=== PATIENT | female | born 1945 | race African-American/Black ===

== ENCOUNTER 2017-03-24 14:07 | Inpatient (IN) | payer MEDICARE ==
[~2017-03-24] VITALS: Ht 156.2 cm; Wt 56.3 kg
[~2017-03-24 14:07] MED LIST: ACET325T9 PO; AMLO10TA2 PO; ASPI-612 PO; ATOR40TA59 PO; BRIM5DRO EACHEYE; BRIM5DRO3 EACHEYE; CHOL500050 PO; CLON0.1T PO; CLOP75TA PO; DORZ10DR3 EACHEYE; FLUT9.9S NS; GLIP10TA13 PO; IPRA3AMP NEB; LATA2.5D3 EACHEYE; LEVO750T5 PO; LISI2.5T PO; LOSA100T6 PO; MEMA10TA PO; METO25TA4 PO; METO50TA2 PO; PRED-220 PO; SPIR25TA3 PO; VENTOLIN HFA18 GM INH
--- NOTE | 2017-03-24 16:26 | PDOC ---
PROGRESS NOTES Subjective Subjective The patient has just arrived in transfer from [place]. She reports feeling well. She denies chest pain. She reports mild shortness of breath. Objective Objective 1. Patient is status post a recent intervention with a drug-eluting stent placed to the right coronary artery and a drug eluded stent placed to the LAD on March 07. Echocardiogram shows normal LV function. She had episodes of shortness of breath and some mild chest pain. Initial troponin was normal. EKG however shows new T-wave inversion in the anterior leads. The patient was started on heparin and has been transferred to [place] for further evaluation and tentatively scheduled for cardiac catheterization tomorrow at 11 AM. This was discussed with the patient. She has agreed to this plan. 2. Hypertension. We'll continue present medications. 3. Hyperlipidemia. We'll check lab and continue medications. 4. Chronic kidney disease. Stage III. We'll treat with fluids prior to catheter. We'll recheck lab in the morning. 5. COPD. Continue baseline medications. Physical Exam Abdomen: Normal bowel sounds Heart: Regular rate General: No acute distress Lungs: Clear to auscultation Assessment Assessment Plan and assessment as outlined above. Comment Review of Relevant I have reviewed the following items glo (where applicable) has been applied. Medications Active Scripts Active Ventolin Hfa Inhaler (Albuterol Sulfate) 18 Gm Hfa.aer.ad 2 Puff INH Q4HRS Reported Metoprolol Tartrate 50 Mg Tablet 1 Tab PO DAILYWBKFT Metoprolol Tartrate 25 Mg Tablet 1 Tab PO HS Lisinopril 2.5 Mg Tablet 1 Tab PO DAILY Clopidogrel (Clopidogrel Bisulfate) 75 Mg Tablet 1 Tab PO DAILY Atorvastatin Calcium 40 Mg Tablet 1 Tab PO DAILY Aspirin Ec (Aspirin) 81 Mg Tablet.dr 1 Tab PO DAILY Tylenol (Acetaminophen) 325 Mg Tablet 2 Tab PO PRN Q6HRS PRN Flonase Allergy Relief (Fluticasone Propionate) 9.9 Ml [place].susp 1 Sprays NS DAILY Glipizide 10 Mg Tablet 1 Tab PO BID Amlodipine Besylate 10 Mg Tablet 10 Mg PO DAILY Dorzolamide Hcl 10 Ml Drops 1 Drop EACHEYE BID Latanoprost 2.5 Ml Drops 1 Drop EACHEYE QHS CHRISTINA GOMEZ MD Mar 24, 2017 16:26
[2017-03-24] MEDS ORDERED: HEPARIN 25,000UTS/500ML PREMIX 500 ML IV PRN (16:30)
[2017-03-24] MEDS ORDERED: ASPIRIN CHEWABLE 81 MG TABLET. PO ONE (16:30)
[2017-03-24] MEDS ORDERED: IV 1/2 NORMAL SALINE 1,000 ML IV SCH (17:00)
[2017-03-24 19:05] VITALS: BP 148/59
[2017-03-24] MEDS: CLOPIDOGREL BISULFATE 75 MG TABLET PO SCH (19:52)
[2017-03-24] MEDS: NITROGLYCERIN OINT 1 GM PACKET. TP SCH ×2 (19:53→23:53)
[2017-03-24] MEDS: IV NORMAL SALINE 1000ML BAG 1,000 ML IV SCH (19:53)
[2017-03-24] MEDS: ACETYLCYSTEINE 20% ORAL SOLN 600 MG/3 ML SYRINGE. PO SCH (21:19)
[2017-03-24 22:45] VITALS: BP 143/81
[2017-03-25] VITALS (9 sets, daily range): BP systolic 114–169; BP diastolic 61–79
[2017-03-25 04:34] LABS: BASO # 0.2 x10^3/uL (0.0-0.2); BASO % 2 % (0-3); EOS % 16 % (0-3); HEMATOCRIT 30.8 % (36.0-47.0); HEMOGLOBIN 10.3 g/dL (12.0-15.5); LYMPH # 3.9 x10^3/uL (1.0-4.8); LYMPH % 40 % (24-48); MEAN CORPUSCULAR HEMOGLOBIN 26 pg (25-35); MEAN CORPUSCULAR HGB CONC 33 g/dL (31-37); MEAN CORPUSCULAR VOLUME 77 fL (79-100); MONO % 9 % (0-9); NEUT % 33 % (31-73); PLATELET COUNT 402 x10^3/uL (140-400); RED BLOOD COUNT 4.01 x10^6/uL (3.50-5.40); RED CELL DISTRIBUTION WIDTH 15.9 % (11.5-14.5); WHITE BLOOD COUNT 9.7 x10^3/uL (4.0-11.0)
[2017-03-25 04:46] LABS: CALCIUM 9.2 mg/dL (8.5-10.1); CREATININE 1.4 mg/dL (0.6-1.0); GFR 44.5; POTASSIUM 3.3 mmol/L (3.5-5.1)
[2017-03-25 04:48] LABS: CHOLESTEROL/HDL RATIO 2.6
[2017-03-25] MEDS: ACETYLCYSTEINE 20% ORAL SOLN 600 MG/3 ML SYRINGE. PO SCH (06:38)
[2017-03-25] MEDS: NITROGLYCERIN OINT 1 GM PACKET. TP SCH ×4 (06:38→21:29)
[2017-03-25] MEDS ORDERED: CHOL500050 PO (08:16)
[2017-03-25] MEDS ORDERED: CETI10TA16 PO (08:16)
[2017-03-25] MEDS ORDERED: NITR0.4T22 SL (08:16)
[2017-03-25] MEDS ORDERED: FLU VACC QS2017-18 (36MOS+)/PF 0.5 ML SYRINGE. VAX IM ONE (09:00)
[2017-03-25] MEDS: IV NORMAL SALINE 1000ML BAG 1,000 ML IV SCH (09:07)
[2017-03-25] MEDS: CLOPIDOGREL BISULFATE 75 MG TABLET PO SCH (09:25)
[2017-03-25] MEDS ORDERED: ACETAMINOPHEN 325 MG TABLET. PO PRN (09:45)
[2017-03-25] MEDS ORDERED: NITROGLYCERIN SUBLINGUAL 0.4 MG BOTTLE OF 25. SL PRN (09:45)
[2017-03-25] MEDS ORDERED: CETIRIZINE HCL 10 MG TABLET. PO SCH ×2 (10:00→12:15)
[2017-03-25] MEDS: METOPROLOL TART IMMED RELEASE 50 MG TABLET. PO SCH (10:00)
[2017-03-25] MEDS: glipiZIDE 5 MG TABLET PO SCH ×2 (10:00→16:47)
[2017-03-25] MEDS: LISINOPRIL 2.5 MG TABLET PO SCH (10:00)
[2017-03-25] MEDS ORDERED: FLUTICASONE 50MCG/NASAL SPRAY 16GM BOTTLE. NS SCH (10:00)
[2017-03-25] MEDS ORDERED: INFLUENZA VAX SCREEN BY RX. MC ONE (11:00)
[2017-03-25] MEDS: ASPIRIN ENTERIC COATED 81 MG TABLET.DR. PO SCH (11:10)
[2017-03-25] MEDS: DORZOLAMIDE 2% OPHTH SOLUTION 10ML BOTTLE. OU SCH ×2 (11:11→21:00)
[2017-03-25] MEDS ORDERED: NON FORMULARY ITEM (Albuterol Sulfate (Ventolin Hfa Inhaler) 2 PUFF) INH SCH (12:00)
--- NOTE | 2017-03-25 12:32 | PDOC1 ---
History and Physical Date of Admission Date of Admission DATE: 03/25/17 TIME: 12:22 Identification/Chief Complaint Chief Complaint CP, SOA, cough Problems: Source Source: Caregiver, Chart review, Patient History of Present Illness History of Present Illness 72 y.o pleasant AA female who just had LHC mar 07 by our [facility], 2 stents placed, come sin bec of CP at rest, She also has some SOA but i cant help but notice she has some URI sxs currently, She denies CP radiation, no diaphoresis, claims compliance to meds, She sounds nasal, admits to productive cough, no efvers here or at hoem though, . Pt planned for C today She only takes pro air prn but claims was on symbicort before, NEVER smoker, no known dx COPD per her acct,. Other notes mention COPD NO CXR on admit Past Medical History Cardiovascular: CAD, HTN, Hyperlipidemia Pulmonary: Bronchitis Renal/: Chronic renal failure Past Surgical History Past Surgical History: Other (PCI), No pertinent history Family History Family History: Hypertension Social History Smoke: No ALCOHOL: none Drugs: None Current Medications Current Medications Current Medications Sodium Chloride 1,000 ml @ 75 mls/hr [id number] IV ; Start 03/24/17 at 17:00; Stop 03/24/17 at 19:17; Status DC Acetylcysteine (Mucomyst 20% Oral Solution) 600 mg Q8H PO Last administered on 03/25/17 06:38; Start 03/24/17 at 22:00; Stop 03/25/17 at 06:01; Status DC Sodium Chloride 1,000 ml @ 60 mls/hr [id number] IV Last administered on 09:07; Start 03/24/17 at 16:27 Aspirin (Children'S Aspirin) 81 mg 1X ONCE PO Last administered on 03/24/17 19:52; Start 03/24/17 at 16:30; Stop 03/24/17 at 16:37; Status DC Clopidogrel Bisulfate (Plavix) 75 mg DAILYWBKFT PO Last administered on 09:25; Start 03/24/17 at 16:30 Heparin Sodium/ Dextrose 500 ml @ 0 mls/hr CONT PRN IV SEE I/O RECORD; Start 03/24/17 at 16:30 Nitroglycerin (Nitro-Bid Oint) 1 inch Q6HRS TP Last administered on 03/25/17 06:38; Start 03/24/17 at 19:41 Info (Do NOT chart on this placeholder) 0.5 each 1X ONCE MC ; Start 03/25/17 at 11:00; Stop 03/25/17 at 11:01; Status UNV Influenza Virus Vaccine Quadrival (Fluarix Quad [id number] Syringe) 0.5 ml ONCE ONCE VAX IM ; Start 03/25/17 at 09:00; Stop 03/25/17 at 09:01; Status DC Acetaminophen (Tylenol) 650 mg PRN Q6HRS PRN PO PAIN; Start 03/25/17 at 09:45 Aspirin (Ecotrin) 81 mg DAILY PO Last administered on 03/25/17 11:10; Start 03/25/17 at 10:00 Atorvastatin Calcium (Lipitor) 40 mg QHS PO ; Start 03/25/17 at 21:00 Cetirizine HCl (ZyrTEC) 10 mg DAILY PO ; Start 03/25/17 at 10:00 Dorzolamide HCl (Trusopt) 1 drop BID OU Last administered on 03/25/17 11:11; Start 03/25/17 at 10:00 Latanoprost (Xalatan) 1 drop QHS OU ; Start 03/25/17 at 21:00 Lisinopril (Prinivil) 2.5 mg DAILY PO ; Start 03/25/17 at 10:00 Metoprolol Tartrate (Lopressor) 25 mg HS PO ; Start 03/25/17 at 21:00 Metoprolol Tartrate (Lopressor) 50 mg DAILYWBKFT PO ; Start 03/25/17 at 10:00 Nitroglycerin (Nitrostat) 0.4 mg PRN Q5MIN PRN SL CHEST PAIN; Start 03/25/17 at 09:45 Non-Formulary Medication 2 puff Q4HRS INH ; Start 03/25/17 at 12:00; Stop at 12:00; Status DC Ergocalciferol (Vitamin D2) 50,000 unit Th PO ; Start 04/03/17 at 09:00 Fluticasone Propionate (Flonase) 1 spray DAILY NS ; Start 03/25/17 at 10:00; Stop 03/25/17 at 10:41; Status DC Glipizide (Glucotrol) 5 mg BIDBFRMEAL PO ; Start 03/25/17 at 10:00 Albuterol Sulfate (Ventolin Neb Soln) 2.5 mg Q4HRS NEB ; Start 03/25/17 at 10:00 Fluticasone Propionate (Flonase) 1 spray DAILY NS ; Start 03/26/17 at 09:00 Active Scripts Active Ventolin Hfa Inhaler (Albuterol Sulfate) 18 Gm Hfa.aer.ad 2 Puff INH Q4HRS Reported Vitamin D (Cholecalciferol (Vitamin D3)) 50,000 Unit Capsule 50,000 Unit PO WEEKLY Cetirizine Hcl 10 Mg Tablet 1 Tab PO DAILY NITROGLYCERIN SubLingual (Nitroglycerin) 0.4 Mg Tab.subl 0.4 Mg SL PRN Q5MIN PRN Metoprolol Tartrate 50 Mg Tablet 1 Tab PO DAILYWBKFT Metoprolol Tartrate 25 Mg Tablet 1 Tab PO HS Lisinopril 2.5 Mg Tablet 1 Tab PO DAILY Clopidogrel (Clopidogrel Bisulfate) 75 Mg Tablet 1 Tab PO DAILY Atorvastatin Calcium 40 Mg Tablet 1 Tab PO DAILY Aspirin Ec (Aspirin) 81 Mg Tablet.dr 1 Tab PO DAILY Tylenol (Acetaminophen) 325 Mg Tablet 2 Tab PO PRN Q6HRS PRN Flonase Allergy Relief (Fluticasone Propionate) 9.9 Ml [place].susp 1 Sprays NS DAILY Glipizide 10 Mg Tablet 0.05 Tab PO BID Amlodipine Besylate 10 Mg Tablet 5 Mg PO DAILY Dorzolamide Hcl 10 Ml Drops 1 Drop EACHEYE BID Latanoprost 2.5 Ml Drops 1 Drop EACHEYE QHS Allergies Allergies: Coded Allergies: Penicillins (Verified Allergy, Intermediate, 12/11/16) Sulfa (Sulfonamide Antibiotics) (Verified Allergy, Intermediate, 03/24/17) tramadol (Verified Allergy, Intermediate, 12/11/16) ROS HEENT: YES: Nasal congestion, Nasal discharge Respiratory: YES: Cough, Shortness of breath Cardiovascular: yes Chest Pain Physical Exam General: Alert, Oriented X3, Cooperative, No acute distress HEENT: Atraumatic, PERRLA Lungs: Normal air movement, Other (wheezy, coughson deep inspiration and exhalation) Abdomen: Normal bowel sounds, Soft, No tenderness, No hepatosplenomegaly, No masses Male Genitals Exam: normal genitalia, normal prostate Rectal Exam: not examined PELVIC: Nml ext genitalia Extremities: No clubbing, No cyanosis, No edema, Normal pulses, No tenderness/ swelling Skin: No rashes, No breakdown, No significant lesion Neuro: Normal gait, Normal speech, Strength at 5/5 X4 ext, Normal tone, Sensation intact, Cranial nerves 3-12 NL, Reflexes 2+ Psych/Mental Status: Mental status NL, Mood NL Vitals Vitals Vital Signs Date Time Temp Pulse Resp B/P (MAP) Pulse Ox O2 Delivery O2 Flow Rate FiO2 03/25/17 10:00 60 114/75 03/25/17 08:25 Nasal Cannula 2.0 03/25/17 07:00 98.2 21 97 98.2 Labs Labs Laboratory Tests Test 03/24/17 20:10 03/25/17 03:43 Heparin Anti-Xa Act, Unfractionated 0.40 IU/mL (0.30-0.70) 0.42 IU/mL (0.30-0.70) White Blood Count 9.7 x10^3/uL (4.0-11.0) Red Blood Count 4.01 x10^6/uL (3.50-5.40) Hemoglobin 10.3 g/dL (12.0-15.5) Hematocrit 30.8 % (36.0-47.0) Mean Corpuscular Volume 77 fL (79-100) Mean Corpuscular Hemoglobin 26 pg (25-35) Mean Corpuscular Hemoglobin Concent 33 g/dL (31-37) Red Cell Distribution Width 15.9 % (11.5-14.5) Platelet Count 402 x10^3/uL (140-400) Neutrophils (%) (Auto) 33 % (31-73) Lymphocytes (%) (Auto) 40 % (24-48) Monocytes (%) (Auto) 9 % (0-9) Eosinophils (%) (Auto) 16 % (0-3) Basophils (%) (Auto) 2 % (0-3) Neutrophils # (Auto) 3.2 x10^3uL (1.8-7.7) Lymphocytes # (Auto) 3.9 x10^3/uL (1.0-4.8) Monocytes # (Auto) 0.9 x10^3/uL (0.0-1.1) Eosinophils # (Auto) 1.5 x10^3/uL (0.0-0.7) Basophils # (Auto) 0.2 x10^3/uL (0.0-0.2) Sodium Level 144 mmol/L (136-145) Potassium Level 3.3 mmol/L (3.5-5.1) Chloride Level 106 mmol/L (98-107) Carbon Dioxide Level 28 mmol/L (21-32) Anion Gap 10 (6-14) Blood Urea Nitrogen 19 mg/dL (7-20) Creatinine 1.4 mg/dL (0.6-1.0) Estimated GFR (Cockcroft-Gault) 44.5 Glucose Level 99 mg/dL (70-99) Calcium Level 9.2 mg/dL (8.5-10.1) Troponin I Quantitative < 0.017 ng/mL (0.000-0.055) Triglycerides Level 91 mg/dL (0-150) Cholesterol Level 169 mg/dL (0-200) LDL Cholesterol, Calculated 86 mg/dL (0-100) VLDL Cholesterol, Calculated 18 mg/dL (0-40) Non-HDL Cholesterol Calculated 104 mg/dL (0-129) HDL Cholesterol 65 mg/dL (40-60) Cholesterol/HDL Ratio 2.6 Laboratory Tests Test 03/24/17 20:10 03/25/17 03:43 Heparin Anti-Xa Act, Unfractionated 0.40 IU/mL (0.30-0.70) 0.42 IU/mL (0.30-0.70) White Blood Count 9.7 x10^3/uL (4.0-11.0) Red Blood Count 4.01 x10^6/uL (3.50-5.40) Hemoglobin 10.3 g/dL (12.0-15.5) Hematocrit 30.8 % (36.0-47.0) Mean Corpuscular Volume 77 fL (79-100) Mean Corpuscular Hemoglobin 26 pg (25-35) Mean Corpuscular Hemoglobin Concent 33 g/dL (31-37) Red Cell Distribution Width 15.9 % (11.5-14.5) Platelet Count 402 x10^3/uL (140-400) Neutrophils (%) (Auto) 33 % (31-73) Lymphocytes (%) (Auto) 40 % (24-48) Monocytes (%) (Auto) 9 % (0-9) Eosinophils (%) (Auto) 16 % (0-3) Basophils (%) (Auto) 2 % (0-3) Neutrophils # (Auto) 3.2 x10^3uL (1.8-7.7) Lymphocytes # (Auto) 3.9 x10^3/uL (1.0-4.8) Monocytes # (Auto) 0.9 x10^3/uL (0.0-1.1) Eosinophils # (Auto) 1.5 x10^3/uL (0.0-0.7) Basophils # (Auto) 0.2 x10^3/uL (0.0-0.2) Sodium Level 144 mmol/L (136-145) Potassium Level 3.3 mmol/L (3.5-5.1) Chloride Level 106 mmol/L (98-107) Carbon Dioxide Level 28 mmol/L (21-32) Anion Gap 10 (6-14) Blood Urea Nitrogen 19 mg/dL (7-20) Creatinine 1.4 mg/dL (0.6-1.0) Estimated GFR (Cockcroft-Gault) 44.5 Glucose Level 99 mg/dL (70-99) Calcium Level 9.2 mg/dL (8.5-10.1) Troponin I Quantitative < 0.017 ng/mL (0.000-0.055) Triglycerides Level 91 mg/dL (0-150) Cholesterol Level 169 mg/dL (0-200) LDL Cholesterol, Calculated 86 mg/dL (0-100) VLDL Cholesterol, Calculated 18 mg/dL (0-40) Non-HDL Cholesterol Calculated 104 mg/dL (0-129) HDL Cholesterol 65 mg/dL (40-60) Cholesterol/HDL Ratio 2.6 VTE Prophylaxis Ordered VTE Prophylaxis Devices: Yes VTE Pharmacological Prophylaxi: Yes Assessment/Plan Assessment/Plan 1. Chest pain, ACS recent PCI with 2 stents 2. HTN, controlled 3. CKD stage 3 4. DM 2 5. Dyslipidemia 7. ACUTE BRONCHITIS PLAN: Admit 2 MN COnt IVF post cath given CKD, s.p mucomyst Recheck BMP wilberto LHC later per cards STart PO abx - Check CXR and flu test today NO FLU shot this admit pls NEbs, cough med MAy consult pulmo, denies known COPD - but other notes mention Dw RN jose manuel and whoel family at bedside Cont home meds, SSI I did hold off her home ASA and plavix as is on heparin gtt currently per cards SUKHDEV LARA MD Mar 25, 2017 12:32
[2017-03-25] MEDS: ALBUTEROL SULFATE 2.5 MG/3 ML NEBU. NEB SCH ×3 (12:35→20:15)
[2017-03-25] MEDS ORDERED: AZITHROMYCIN 500 MG in IV NORMAL SALINE 250ML 250 ML IV ONE (12:45)
[2017-03-25] MEDS ORDERED: LIDOCAINE 2% 20 ML VIAL. ONE (14:28)
[2017-03-25] MEDS ORDERED: IODIXANOL 320 MG/ML 100 ML VIAL. ONE (14:28)
[2017-03-25] MEDS ORDERED: fentaNYL PF VIAL 100 MCG/2 ML VIAL ONE (15:02)
[2017-03-25] MEDS ORDERED: MIDAZOLAM HCL/PF 2 MG/2 ML VIAL. ONE (15:02)
[2017-03-25] MEDS ORDERED: NITROGLYCERIN 200 MCG/2 ML SYRINGE FOR CATH/VASC LAB. ONE (15:02)
[2017-03-25] MEDS ORDERED: HEPARIN for IV BOLUS 10,000 UNIT/10 ML VIAL. ONE (15:02)
[2017-03-25] MEDS ORDERED: VERAPAMIL 5 MG/2 ML VIAL. ONE (15:02)
--- NOTE | 2017-03-25 15:28 | RAD ---
Chest, 2 views, 03/25/2017: History: Chronic cough Comparison is made to a study from 12/09/2016. The heart size and pulmonary vascularity are normal. Coronary artery stents are projected over the left side of the heart. There is mild tortuosity of the thoracic aorta. No acute infiltrate are seen. There is no evidence of pleural fluid. IMPRESSION: No acute cardiopulmonary abnormality is detected.
[2017-03-25] MEDS ORDERED: VERAPAMIL 5 MG/2 ML VIAL. IART ONE (15:45)
[2017-03-25] MEDS ORDERED: NITROGLYCERIN 200 MCG/2 ML SYRINGE FOR CATH/VASC LAB. IART ONE (15:45)
[2017-03-25] MEDS ORDERED: fentaNYL PF VIAL 100 MCG/2 ML VIAL IV ONE (15:45)
[2017-03-25] MEDS ORDERED: IODIXANOL 320 MG/ML 100 ML VIAL. IART ONE (15:45)
[2017-03-25] MEDS ORDERED: LIDOCAINE 2% 20 ML VIAL. IJ ONE (15:45)
[2017-03-25] MEDS ORDERED: HEPARIN for IV BOLUS 10,000 UNIT/10 ML VIAL. IART ONE (15:45)
[2017-03-25] MEDS ORDERED: MIDAZOLAM HCL/PF 2 MG/2 ML VIAL. IV ONE (15:45)
--- NOTE | 2017-03-25 15:53 | PDOC ---
MODERATE SEDATION ASSESSMENT RISKS/ALTERNATIVES Risks/Alternatives Risks and alternatives of this type of sedation and procedure discussed with: RISK/ALTERNATIVES: Patient H & P ON CHART H & P H & P on chart and reviewed for co-morbid conditions and appropriate labs. H&P ON CHART: Yes STATUS PREG STATUS ASSESSED: N/A MEDS/ALLERGIES REVIEWED Meds/Allergies Reviewed Medications and Allergies including time and route of recently administered narcotics and sedatives. MEDS/ALLERGIES REVIEWED: Yes ASA RATING ASA RATING: II AIRWAY ASSESSMENT Airway Assessment Airway patency, oral function limitations, presence of caps, crowns, dentures, partials, and ability to extend neck assessed. AIRWAY ASSESSMENT: Yes MALLAMPATI SCORE MALLAMPATI SCORE: II PRE-SEDATION ASSESSMENT PRE-SEDATION ASSESSMENT: Yes MILADIS BAUGH MD Mar 25, 2017 15:53
[2017-03-25] MEDS: IV 1/2 NORMAL SALINE 1,000 ML IV SCH (15:54)
--- NOTE | 2017-03-25 16:05 | CARD ---
APPROVED REPORT Procedure(s) performed: Left heart catheterization, selective coronary angiography and left ventricul ography via right transradial approach Moderate sedation: 20 minutes INDICATION The indication(s) include : unstable angina . PROCEDURE NARRATIVE After explaining the risks, benefits and alternative options, informed consent was obtained from lona ent. Patient was brought to the cardiac Dental Nurse and right wrist was prepped and draped in the usual fashion after confirming a positive modified Lucas's test. Arterial access was obtained in the [facility] radial artery and a 6 Afghan sheath was inserted. 6 Afghan JL 3.5 and 6 Afghan JR4 catheters were used to perform selective angiography of left and right coronary arteries after initial attempts to e ngage these vessels using 6 Afghan Bony catheter were unsuccessful. 6 Afghan pigtail catheter was used to perform left ventriculography. Patient tolerated the procedure well. Hemostasis was achieve d using TR band. There were no immediate complications. The following findings were noted. FINDINGS 1. Hemodynamics: Left ventricular end-diastolic pressure of 18 mmHg. No pullback gradient across th e aortic valve. 2. Left ventriculography: Normal left ventricle systolic function with ejection fraction estimated at 75-80%. No significant mitral regurgitation seen. 3. Coronary angiography: a. The left main coronary artery arose from the left sinus of Valsalva, gave rise to the left anteri or descending and left circumflex arteries and did not show any significant stenosis. b. The left anterior descending artery showed widely patent previously placed stents in the mid and mid to distal segments. c. The left circumflex artery did not show any significant stenosis. d. The right coronary artery was a large and dominant vessel arising from the right sinus of Valsalv a that showed 30% stenosis in the proximal segment, widely patent previously placed stent in the mids egment and 50% stenosis involving the proximal segment of posterolateral branch. Conclusion 1. Nonobstructive coronary artery disease with widely patent recently placed stents in the left ante rior descending and right coronary arteries. 2. Normal left ventricle systolic function with ejection fraction estimated at 75-80% Recommendations Medical Therapy
[2017-03-25] MEDS: DOXYCYCLINE HYCLATE 100 MG TABLET PO SCH ×2 (16:47→21:29)
[2017-03-25] MEDS: methylPREDNISolone SOD SUCC PF 40 MG/ML VIAL. IV SCH ×2 (16:47→21:20)
[2017-03-25] MEDS: predniSONE 10 MG TABLET PO SCH (18:38)
[2017-03-25 19:05] LABS: OBC FLU VALID
[2017-03-25] MEDS: BUDESONIDE 0.5 MG/2 ML NEBU. NEB SCH (20:15)
[2017-03-25] MEDS ORDERED: LATANOPROST 0.005% OPHTH SOLUTION 2.5ML BOTTLE. OU SCH (21:00)
[2017-03-25] MEDS ORDERED: MONTELUKAST SODIUM 10 MG TABLET. PO SCH (21:00)
[2017-03-25] MEDS ORDERED: METOPROLOL TART IMMED RELEASE 25 MG TABLET. PO SCH (21:00)
[2017-03-25] MEDS ORDERED: ATORVASTATIN CALCIUM 40 MG TABLET. PO SCH (21:00)
--- NOTE | 2017-03-25 22:25 | CONS ---
DATE OF CONSULTATION: 03/25/2017 ATTENDING PHYSICIAN: Dr. Farley. HISTORY OF PRESENT ILLNESS: The patient is a 72-year-old that has never smoked. Has underlying history of obstructive lung disease, diagnosed with asthma as an adult. She is normally on Symbicort, now uses p.r.n. albuterol. Presented with increasing wheeze, shortness of breath. She felt like it was similar to her previous myocardial infarction. She had a cardiac catheterization back in February with PCI to the LAD and RCA. Echocardiogram at that time revealed EF of 60-65%. She had a repeat cardiac catheterization today revealing nonobstructive coronary artery disease with widely patent recently placed stents in the left anterior descending and right coronary artery. She had normal left ventricular ejection fraction of 75-80%. The patient admits to having some allergies. She normally uses ndsb-[id number] Zyrtec. She is not taking Singulair. She has never had any formal allergy testing. She denies any exposures to any allergens. Her does work in the garage with wood, and at times she is exposed to wood dust. She has not noticed any increasing shortness of breath with inhalation of any toxic fumes or dust. PAST MEDICAL HISTORY: 1. Obstructive lung disease, asthma diagnosed as an adult. She has never smoked. Has been on Symbicort in the past. 2. Allergies: Seasonal and environmental. 3. Coronary artery disease, status post PCI on 03/07/2017. LAD and RCA had a stent placement. 4. Chronic bronchitis. 5. Hyperlipidemia. 6. Hypertension. 7. Chronic renal disease. PAST SURGICAL HISTORY: As above. FAMILY HISTORY: Hypertension. ALLERGIES: PENICILLIN, SULFA AND TRAMADOL. CURRENT MEDICATION: List was reviewed. Please see the MRAD. HOME MEDICATIONS: List was likewise reviewed. REVIEW OF SYSTEMS: As indicated above, otherwise 10-point system was reviewed and negative. SOCIAL HISTORY: She has never smoked. Denies any excessive alcohol intake. PHYSICAL EXAMINATION: GENERAL: The patient was in no significant respiratory distress. VITAL SIGNS: Stable. O2 saturation currently on 2 liters was 96%. HEENT: Eyes, the sclerae were nonicteric. NECK: Jugular venous distention was not elevated. No lymphadenopathy. CHEST: Full expansion. LUNGS: Expiratory wheeze with prolonged expiratory phase. CARDIOVASCULAR: Regular rate and rhythm with S1, S2, no S3. ABDOMEN: Soft, nontender, nondistended. EXTREMITIES: No clubbing, cyanosis or edema. NEUROLOGIC: The patient was awake, alert, following commands. A detailed neuro exam was not performed. LABORATORY DATA: Reviewed. White count was normal. Differential showed 16% eosinophilia. Electrolytes were normal, except for potassium being low. Creatinine was elevated. IMAGING DATA: Chest x-ray reviewed, no acute cardiopulmonary process. IMPRESSION: 1. Progressive dyspnea, secondary to acute exacerbation of asthma. 2. Asthma exacerbation secondary to allergies. 3. Seasonal and environmental allergies. 4. Peripheral eosinophilia, compatible with allergies. 5. Coronary artery disease, status post previous PCI back in 02/2015 to LAD and RCA. Current cardiac catheterization revealed nonobstructive coronary artery disease with widely patent stents. PLAN: 1. Initiate nebulized steroids. 2. Add Singulair. 3. Outpatient workup for allergies. 4. Repeat CBC with differential as an outpatient. If the eosinophilia persists, she may require further investigation. I do appreciate the privilege in sharing Ms. Yates's care. ARTURO DANIEL MD DR: KYLEE/ariel JOB#: [id number] / [id number] FABIENNE Nunez MD
[2017-03-26] MEDS: IV NORMAL SALINE 1000ML BAG 1,000 ML IV SCH (01:47)
[2017-03-26 02:40] VITALS: BP 149/66
[2017-03-26] MEDS: ALBUTEROL SULFATE 2.5 MG/3 ML NEBU. NEB SCH ×5 (03:07→16:06)
[2017-03-26] MEDS: NITROGLYCERIN OINT 1 GM PACKET. TP SCH ×2 (06:23→12:00)
[2017-03-26] MEDS: methylPREDNISolone SOD SUCC PF 40 MG/ML VIAL. IV SCH ×2 (06:23→15:22)
[2017-03-26 07:19] VITALS: BP 142/65
[2017-03-26 07:22] LABS: CALCIUM 9.4 mg/dL (8.5-10.1); CREATININE 1.4 mg/dL (0.6-1.0); GFR 44.5; POTASSIUM 3.5 mmol/L (3.5-5.1)
[2017-03-26] MEDS: BUDESONIDE 0.5 MG/2 ML NEBU. NEB SCH (07:30)
[2017-03-26] MEDS: IV 1/2 NORMAL SALINE 1,000 ML IV SCH (08:34)
[2017-03-26] MEDS: CLOPIDOGREL BISULFATE 75 MG TABLET PO SCH (08:52)
[2017-03-26] MEDS: ASPIRIN ENTERIC COATED 81 MG TABLET.DR. PO SCH (08:52)
[2017-03-26] MEDS: DOXYCYCLINE HYCLATE 100 MG TABLET PO SCH (08:53)
[2017-03-26] MEDS: glipiZIDE 5 MG TABLET PO SCH (08:53)
[2017-03-26] MEDS: METOPROLOL TART IMMED RELEASE 50 MG TABLET. PO SCH (08:53)
[2017-03-26] MEDS: LISINOPRIL 2.5 MG TABLET PO SCH (08:53)
[2017-03-26] MEDS: predniSONE 10 MG TABLET PO SCH (08:54)
[2017-03-26] MEDS ORDERED: FLUTICASONE 50MCG/NASAL SPRAY 16GM BOTTLE. NS SCH (09:00)
[2017-03-26] MEDS: DORZOLAMIDE 2% OPHTH SOLUTION 10ML BOTTLE. OU SCH (09:01)
--- NOTE | 2017-03-26 10:11 | PDOC ---
PULMONARY PROGRESS NOTES Subjective CP almost resolved s/p cath, patent stents Vitals Vital Signs Date Time Temp Pulse Resp B/P (MAP) Pulse Ox O2 Delivery O2 Flow Rate FiO2 03/26/17 08:53 74 142/65 03/26/17 07:31 95 Room Air 03/26/17 07:19 97.8 16 97.8 03/25/17 20:00 2.0 General: Alert, No acute distress HEENT: Other Lungs: Clear, Other Cardiovascular: S1 Abdomen: Soft Neuro Exam: Alert Extremities: No Edema Labs Laboratory Tests Test 03/24/17 20:10 03/25/17 03:43 03/25/17 18:07 03/26/17 06:40 Heparin Anti-Xa Act, Unfractionated 0.40 IU/mL (0.30-0.70) 0.42 IU/mL (0.30-0.70) White Blood Count 9.7 x10^3/uL (4.0-11.0) Red Blood Count 4.01 x10^6/uL (3.50-5.40) Hemoglobin 10.3 g/dL (12.0-15.5) Hematocrit 30.8 % (36.0-47.0) Mean Corpuscular Volume 77 fL (79-100) Mean Corpuscular Hemoglobin 26 pg (25-35) Mean Corpuscular Hemoglobin Concent 33 g/dL (31-37) Red Cell Distribution Width 15.9 % (11.5-14.5) Platelet Count 402 x10^3/uL (140-400) Neutrophils (%) (Auto) 33 % (31-73) Lymphocytes (%) (Auto) 40 % (24-48) Monocytes (%) (Auto) 9 % (0-9) Eosinophils (%) (Auto) 16 % (0-3) Basophils (%) (Auto) 2 % (0-3) Neutrophils # (Auto) 3.2 x10^3uL (1.8-7.7) Lymphocytes # (Auto) 3.9 x10^3/uL (1.0-4.8) Monocytes # (Auto) 0.9 x10^3/uL (0.0-1.1) Eosinophils # (Auto) 1.5 x10^3/uL (0.0-0.7) Basophils # (Auto) 0.2 x10^3/uL (0.0-0.2) Sodium Level 144 mmol/L (136-145) 140 mmol/L (136-145) Potassium Level 3.3 mmol/L (3.5-5.1) 3.5 mmol/L (3.5-5.1) Chloride Level 106 mmol/L (98-107) 104 mmol/L (98-107) Carbon Dioxide Level 28 mmol/L (21-32) 22 mmol/L (21-32) Anion Gap 10 (6-14) 14 (6-14) Blood Urea Nitrogen 19 mg/dL (7-20) 18 mg/dL (7-20) Creatinine 1.4 mg/dL (0.6-1.0) 1.4 mg/dL (0.6-1.0) Estimated GFR (Cockcroft-Gault) 44.5 44.5 Glucose Level 99 mg/dL (70-99) 221 mg/dL (70-99) Calcium Level 9.2 mg/dL (8.5-10.1) 9.4 mg/dL (8.5-10.1) Troponin I Quantitative < 0.017 ng/mL (0.000-0.055) Triglycerides Level 91 mg/dL (0-150) Cholesterol Level 169 mg/dL (0-200) LDL Cholesterol, Calculated 86 mg/dL (0-100) VLDL Cholesterol, Calculated 18 mg/dL (0-40) Non-HDL Cholesterol Calculated 104 mg/dL (0-129) HDL Cholesterol 65 mg/dL (40-60) Cholesterol/HDL Ratio 2.6 Influenza Type A Antigen Negative (NEGATIVE) Influenza Type B Antigen Negative (NEGATIVE) Laboratory Tests Test 03/25/17 18:07 03/26/17 06:40 Influenza Type A Antigen Negative (NEGATIVE) Influenza Type B Antigen Negative (NEGATIVE) Sodium Level 140 mmol/L (136-145) Potassium Level 3.5 mmol/L (3.5-5.1) Chloride Level 104 mmol/L (98-107) Carbon Dioxide Level 22 mmol/L (21-32) Anion Gap 14 (6-14) Blood Urea Nitrogen 18 mg/dL (7-20) Creatinine 1.4 mg/dL (0.6-1.0) Estimated GFR (Cockcroft-Gault) 44.5 Glucose Level 221 mg/dL (70-99) Calcium Level 9.4 mg/dL (8.5-10.1) Medications Active Scripts Medications Dose Route/Sig Max Daily Dose Days Date Category Vitamin D (Cholecalciferol (Vitamin D3)) 50,000 Unit Capsule 50,000 Unit PO WEEKLY 03/25/17 Reported Cetirizine Hcl 10 Mg Tablet 1 Tab PO DAILY 03/25/17 Reported NITROGLYCERIN SubLingual (Nitroglycerin) 0.4 Mg Tab.subl 0.4 Mg SL PRN Q5MIN PRN 03/25/17 Reported Metoprolol Tartrate 50 Mg Tablet 1 Tab PO DAILYWBKFT 03/08/17 Reported Metoprolol Tartrate 25 Mg Tablet 1 Tab PO HS 03/08/17 Reported Lisinopril 2.5 Mg Tablet 1 Tab PO DAILY 03/08/17 Reported Clopidogrel (Clopidogrel Bisulfate) 75 Mg Tablet 1 Tab PO DAILY 03/08/17 Reported Atorvastatin Calcium 40 Mg Tablet 1 Tab PO DAILY 03/08/17 Reported Aspirin Ec (Aspirin) 81 Mg Tablet.dr 1 Tab PO DAILY 03/08/17 Reported Tylenol (Acetaminophen) 325 Mg Tablet 2 Tab PO PRN Q6HRS PRN 03/08/17 Reported Ventolin Hfa Inhaler (Albuterol Sulfate) 18 Gm Hfa.aer.ad 2 Puff INH Q4HRS 12/12/16 Rx Flonase Allergy Relief (Fluticasone Propionate) 9.9 Ml [place].susp 1 Sprays NS DAILY 12/09/16 Reported Glipizide 10 Mg Tablet 0.05 Tab PO BID 12/09/16 Reported Amlodipine Besylate 10 Mg Tablet 5 Mg PO DAILY 12/09/16 Reported Dorzolamide Hcl 10 Ml Drops 1 Drop EACHEYE BID 12/09/16 Reported Latanoprost 2.5 Ml Drops 1 Drop EACHEYE QHS 12/09/16 Reported Impression . 1. Progressive dyspnea, secondary to acute exacerbation of asthma. 2. Asthma exacerbation secondary to allergies. 3. Seasonal and environmental allergies. 4. Peripheral eosinophilia, compatible with allergies. 5. Coronary artery disease, status post previous PCI back in 02/2015 to LAD and RCA. Current cardiac catheterization revealed nonobstructive coronary artery disease with widely patent stents. 6. CP, could be related to GERD. will do VQ scan Plan . 1. steroids. 2. Singulair. 3. Outpatient workup for allergies. 4. Repeat CBC with differential as an outpatient. If the eosinophilia persists, she may require further investigation. 5. VQ scan today, If negative, can go home 6. d/w cardiology MAURICIO THIBODEAUX MD Mar 26, 2017 10:11
--- NOTE | 2017-03-26 10:59 | PDOC ---
PROGRESS NOTES Chief Complaint Chief Complaint 1. Chest pain, ACS recent PCI with 2 stents 2. HTN, controlled 3. CKD stage 3 4. DM 2 5. Dyslipidemia 7. ACUTE BRONCHITIS History of Present Illness History of Present Illness WAlking wit PT As per still having left sided CP LHC yesterday showed patent stents Pulmo note reviewed - VQ today IF neg can go home later on symbicort etc PLAN: VQ Dw cards pt still having lefts ided CP On PO doxy for acute bronchitis - no fevers, no white ct Vitals Vitals Vital Signs Date Time Temp Pulse Resp B/P (MAP) Pulse Ox O2 Delivery O2 Flow Rate FiO2 03/26/17 08:53 74 142/65 03/26/17 08:00 Nasal Cannula 2.0 03/26/17 07:31 95 03/26/17 07:19 97.8 16 97.8 Physical Exam General: Alert, Oriented X3, Cooperative, No acute distress Heart: Regular rate Lungs: Clear, Other Abdomen: Normal bowel sounds, Soft, No tenderness, No hepatosplenomegaly, No masses Extremities: No clubbing, No cyanosis, No edema, Normal pulses, No tenderness/ swelling Skin: No rashes, No breakdown, No significant lesion Labs LABS Laboratory Tests Test 03/25/17 18:07 03/26/17 06:40 Influenza Type A Antigen Negative (NEGATIVE) Influenza Type B Antigen Negative (NEGATIVE) Sodium Level 140 mmol/L (136-145) Potassium Level 3.5 mmol/L (3.5-5.1) Chloride Level 104 mmol/L (98-107) Carbon Dioxide Level 22 mmol/L (21-32) Anion Gap 14 (6-14) Blood Urea Nitrogen 18 mg/dL (7-20) Creatinine 1.4 mg/dL (0.6-1.0) Estimated GFR (Cockcroft-Gault) 44.5 Glucose Level 221 mg/dL (70-99) Calcium Level 9.4 mg/dL (8.5-10.1) Review of Systems Review of Systems left sided CP Comment Review of Relevant I have reviewed the following items glo (where applicable) has been applied. Labs Laboratory Tests Test 03/24/17 20:10 03/25/17 03:43 03/25/17 18:07 03/26/17 06:40 Heparin Anti-Xa Act, Unfractionated 0.40 IU/mL (0.30-0.70) 0.42 IU/mL (0.30-0.70) White Blood Count 9.7 x10^3/uL (4.0-11.0) Red Blood Count 4.01 x10^6/uL (3.50-5.40) Hemoglobin 10.3 g/dL (12.0-15.5) Hematocrit 30.8 % (36.0-47.0) Mean Corpuscular Volume 77 fL (79-100) Mean Corpuscular Hemoglobin 26 pg (25-35) Mean Corpuscular Hemoglobin Concent 33 g/dL (31-37) Red Cell Distribution Width 15.9 % (11.5-14.5) Platelet Count 402 x10^3/uL (140-400) Neutrophils (%) (Auto) 33 % (31-73) Lymphocytes (%) (Auto) 40 % (24-48) Monocytes (%) (Auto) 9 % (0-9) Eosinophils (%) (Auto) 16 % (0-3) Basophils (%) (Auto) 2 % (0-3) Neutrophils # (Auto) 3.2 x10^3uL (1.8-7.7) Lymphocytes # (Auto) 3.9 x10^3/uL (1.0-4.8) Monocytes # (Auto) 0.9 x10^3/uL (0.0-1.1) Eosinophils # (Auto) 1.5 x10^3/uL (0.0-0.7) Basophils # (Auto) 0.2 x10^3/uL (0.0-0.2) Sodium Level 144 mmol/L (136-145) 140 mmol/L (136-145) Potassium Level 3.3 mmol/L (3.5-5.1) 3.5 mmol/L (3.5-5.1) Chloride Level 106 mmol/L (98-107) 104 mmol/L (98-107) Carbon Dioxide Level 28 mmol/L (21-32) 22 mmol/L (21-32) Anion Gap 10 (6-14) 14 (6-14) Blood Urea Nitrogen 19 mg/dL (7-20) 18 mg/dL (7-20) Creatinine 1.4 mg/dL (0.6-1.0) 1.4 mg/dL (0.6-1.0) Estimated GFR (Cockcroft-Gault) 44.5 44.5 Glucose Level 99 mg/dL (70-99) 221 mg/dL (70-99) Calcium Level 9.2 mg/dL (8.5-10.1) 9.4 mg/dL (8.5-10.1) Troponin I Quantitative < 0.017 ng/mL (0.000-0.055) Triglycerides Level 91 mg/dL (0-150) Cholesterol Level 169 mg/dL (0-200) LDL Cholesterol, Calculated 86 mg/dL (0-100) VLDL Cholesterol, Calculated 18 mg/dL (0-40) Non-HDL Cholesterol Calculated 104 mg/dL (0-129) HDL Cholesterol 65 mg/dL (40-60) Cholesterol/HDL Ratio 2.6 Influenza Type A Antigen Negative (NEGATIVE) Influenza Type B Antigen Negative (NEGATIVE) Laboratory Tests Test 03/25/17 18:07 03/26/17 06:40 Influenza Type A Antigen Negative (NEGATIVE) Influenza Type B Antigen Negative (NEGATIVE) Sodium Level 140 mmol/L (136-145) Potassium Level 3.5 mmol/L (3.5-5.1) Chloride Level 104 mmol/L (98-107) Carbon Dioxide Level 22 mmol/L (21-32) Anion Gap 14 (6-14) Blood Urea Nitrogen 18 mg/dL (7-20) Creatinine 1.4 mg/dL (0.6-1.0) Estimated GFR (Cockcroft-Gault) 44.5 Glucose Level 221 mg/dL (70-99) Calcium Level 9.4 mg/dL (8.5-10.1) Medications Current Medications Sodium Chloride 1,000 ml @ 75 mls/hr [id number] IV ; Start 03/24/17 at 17:00; Stop 03/24/17 at 19:17; Status DC Acetylcysteine (Mucomyst 20% Oral Solution) 600 mg Q8H PO Last administered on 03/25/17 06:38; Start 03/24/17 at 22:00; Stop 03/25/17 at 06:01; Status DC Sodium Chloride 1,000 ml @ 60 mls/hr [id number] IV Last administered on 09:07; Start 03/24/17 at 16:27 Aspirin (Children'S Aspirin) 81 mg 1X ONCE PO Last administered on 03/24/17 19:52; Start 03/24/17 at 16:30; Stop 03/24/17 at 16:37; Status DC Clopidogrel Bisulfate (Plavix) 75 mg DAILYWBKFT PO Last administered on 08:52; Start 03/24/17 at 16:30 Heparin Sodium/ Dextrose 500 ml @ 0 mls/hr CONT PRN IV SEE I/O RECORD; Start 03/24/17 at 16:30; Stop 03/26/17 at 09:52; Status DC Nitroglycerin (Nitro-Bid Oint) 1 inch Q6HRS TP Last administered on 03/26/17 06:23; Start 03/24/17 at 19:41 Info (Do NOT chart on this placeholder) 0.5 each 1X ONCE MC ; Start 03/25/17 at 11:00; Stop 03/25/17 at 11:01; Status UNV Influenza Virus Vaccine Quadrival (Fluarix Quad [id number] Syringe) 0.5 ml ONCE ONCE VAX IM ; Start 03/25/17 at 09:00; Stop 03/25/17 at 09:01; Status DC Acetaminophen (Tylenol) 650 mg PRN Q6HRS PRN PO PAIN; Start 03/25/17 at 09:45 Aspirin (Ecotrin) 81 mg DAILY PO Last administered on 03/26/17 08:52; Start 03/25/17 at 10:00 Atorvastatin Calcium (Lipitor) 40 mg QHS PO Last administered on 03/25/17 21: 16; Start 03/25/17 at 21:00 Cetirizine HCl (ZyrTEC) 10 mg DAILY PO ; Start 03/25/17 at 10:00; Status Cancel Dorzolamide HCl (Trusopt) 1 drop BID OU Last administered on 03/26/17 09:01; Start 03/25/17 at 10:00 Latanoprost (Xalatan) 1 drop QHS OU Last administered on 03/25/17 21:15; Start 03/25/17 at 21:00 Lisinopril (Prinivil) 2.5 mg DAILY PO Last administered on 03/26/17 08:53; Start 03/25/17 at 10:00 Metoprolol Tartrate (Lopressor) 25 mg HS PO Last administered on 03/25/17 21: 20; Start 03/25/17 at 21:00 Metoprolol Tartrate (Lopressor) 50 mg DAILYWBKFT PO Last administered on 08:53; Start 03/25/17 at 10:00 Nitroglycerin (Nitrostat) 0.4 mg PRN Q5MIN PRN SL CHEST PAIN; Start 03/25/17 at 09:45 Non-Formulary Medication 2 puff Q4HRS INH ; Start 03/25/17 at 12:00; Stop at 12:00; Status DC Ergocalciferol (Vitamin D2) 50,000 unit Th PO ; Start 04/03/17 at 09:00 Fluticasone Propionate (Flonase) 1 spray DAILY NS ; Start 03/25/17 at 10:00; Stop 03/25/17 at 10:41; Status DC Glipizide (Glucotrol) 5 mg BIDBFRMEAL PO Last administered on 03/26/17 08:53; Start 03/25/17 at 10:00 Albuterol Sulfate (Ventolin Neb Soln) 2.5 mg Q4HRS NEB Last administered on 07:30; Start 03/25/17 at 10:00 Fluticasone Propionate (Flonase) 1 spray DAILY NS ; Start 03/26/17 at 09:00 Methylprednisolone Sodium Succinate (SOLU-Medrol 40MG VIAL) 40 mg Q8HRS IV Last administered on 03/26/17 06:23; Start 03/25/17 at 14:00 Cetirizine HCl (ZyrTEC) 10 mg DAILY PO ; Start 03/25/17 at 12:15; Stop 03/25/17 at 12:28; Status DC Guaifenesin (Robitussin) 200 mg QID PO Last administered on 03/26/17 08:54; Start 03/25/17 at 12:15 Doxycycline Hyclate (Vibra-Tab) 100 mg BID PO Last administered on 03/26/17 08 :53; Start 03/25/17 at 13:00 Azithromycin 500 mg/Sodium Chloride 250 ml @ 250 mls/hr 1X ONCE IV Last administered on 03/25/17 17:38; Start 03/25/17 at 12:45; Stop 03/25/17 at 13:44 ; Status DC Iodixanol (Visipaque 320) 100 ml STK-MED ONCE .ROUTE ; Start 03/25/17 at 14:28; Stop 03/25/17 at 14:29; Status DC Lidocaine HCl 20 ml STK-MED ONCE .ROUTE ; Start 03/25/17 at 14:28; Stop at 14:29; Status DC Heparin Sodium/ Sodium Chloride 500 ml @ As Directed STK-MED ONCE .ROUTE ; Start 03/25/17 at 14:28; Stop 03/25/17 at 14:29; Status DC Fentanyl Citrate (Fentanyl 2ml Vial) 100 mcg STK-MED ONCE .ROUTE ; Start at 15:02; Stop 03/25/17 at 15:03; Status DC Midazolam HCl (Versed) 2 mg STK-MED ONCE .ROUTE ; Start 03/25/17 at 15:02; Stop 03/25/17 at 15:03; Status DC Verapamil HCl (Verapamil) 5 mg STK-MED ONCE .ROUTE ; Start 03/25/17 at 15:02; Stop 03/25/17 at 15:03; Status DC Heparin Sodium (Porcine) (Heparin Sodium) 10,000 unit STK-MED ONCE .ROUTE ; Start 03/25/17 at 15:02; Stop 03/25/17 at 15:03; Status DC Nitroglycerin (Nitroglycerin) 200 mcg STK-MED ONCE .ROUTE ; Start 03/25/17 at 15 :02; Stop 03/25/17 at 15:03; Status DC Nitroglycerin (Nitroglycerin) 200 mcg 1X ONCE IART Last administered on 15:54; Start 03/25/17 at 15:45; Stop 03/25/17 at 15:46; Status DC Verapamil HCl (Verapamil) 2.5 mg 1X ONCE IART Last administered on 03/25/17 15:55; Start 03/25/17 at 15:45; Stop 03/25/17 at 15:46; Status DC Heparin Sodium (Porcine) (Heparin Sodium) 2,500 unit 1X ONCE IART Last administered on 03/25/17 15:56; Start 03/25/17 at 15:45; Stop 03/25/17 at 15:46 ; Status DC Heparin Sodium/ Sodium Chloride 1,000 unit 1X ONCE IART Last administered on 03/25/17 15:54; Start 03/25/17 at 15:45; Stop 03/25/17 at 15:46; Status DC Midazolam HCl (Versed) 1 mg 1X ONCE IV Last administered on 03/25/17 15:54; Start 03/25/17 at 15:45; Stop 03/25/17 at 15:46; Status DC Fentanyl Citrate (Fentanyl 2ml Vial) 50 mcg 1X ONCE IV Last administered on 15:55; Start 03/25/17 at 15:45; Stop 03/25/17 at 15:46; Status DC Iodixanol (Visipaque 320) 100 ml 1X ONCE IART Last administered on 03/25/17 15:53; Start 03/25/17 at 15:45; Stop 03/25/17 at 15:46; Status DC Lidocaine HCl 2 ml 1X ONCE IJ Last administered on 03/25/17 15:54; Start 03/25/17 at 15:45; Stop 03/25/17 at 15:46; Status DC Sodium Chloride 1,000 ml @ 60 mls/hr [id number] IV Last administered on 15:54; Start 03/25/17 at 15:54 Prednisone (Prednisone) 30 mg DAILY PO Last administered on 03/26/17 08:54; Start 03/25/17 at 18:15 Montelukast Sodium (Singulair) 10 mg QHS PO Last administered on 03/25/17 21: 16; Start 03/25/17 at 21:00 Budesonide (Pulmicort) 0.5 mg RTBID NEB Last administered on 03/26/17 07:30; Start 03/25/17 at 20:00 Active Scripts Active Ventolin Hfa Inhaler (Albuterol Sulfate) 18 Gm Hfa.aer.ad 2 Puff INH Q4HRS Reported Vitamin D (Cholecalciferol (Vitamin D3)) 50,000 Unit Capsule 50,000 Unit PO WEEKLY Cetirizine Hcl 10 Mg Tablet 1 Tab PO DAILY NITROGLYCERIN SubLingual (Nitroglycerin) 0.4 Mg Tab.subl 0.4 Mg SL PRN Q5MIN PRN Metoprolol Tartrate 50 Mg Tablet 1 Tab PO DAILYWBKFT Metoprolol Tartrate 25 Mg Tablet 1 Tab PO HS Lisinopril 2.5 Mg Tablet 1 Tab PO DAILY Clopidogrel (Clopidogrel Bisulfate) 75 Mg Tablet 1 Tab PO DAILY Atorvastatin Calcium 40 Mg Tablet 1 Tab PO DAILY Aspirin Ec (Aspirin) 81 Mg Tablet.dr 1 Tab PO DAILY Tylenol (Acetaminophen) 325 Mg Tablet 2 Tab PO PRN Q6HRS PRN Flonase Allergy Relief (Fluticasone Propionate) 9.9 Ml [place].susp 1 Sprays NS DAILY Glipizide 10 Mg Tablet 0.05 Tab PO BID Amlodipine Besylate 10 Mg Tablet 5 Mg PO DAILY Dorzolamide Hcl 10 Ml Drops 1 Drop EACHEYE BID Latanoprost 2.5 Ml Drops 1 Drop EACHEYE QHS Vitals/I & O Vital Sign - Last 24 Hours 03/25/17 03/25/17 03/25/17 03/25/17 11:00 12:00 12:36 15:00 Temp 98.7 98.4 98.7 98.4 Pulse 75 78 81 Resp 20 17 B/P (MAP) 164/64 (97) 136/63 162/79 (106) Pulse Ox 100 99 97 O2 Delivery Nasal Cannula Nasal Cannula Nasal Cannula O2 Flow Rate 2.0 2.0 2.0 03/25/17 03/25/17 03/25/17 03/25/17 15:55 15:55 15:56 16:24 Pulse 78 78 Resp 14 14 Pulse Ox 10 100 97 O2 Delivery Nasal Cannula Nasal Cannula Room Air O2 Flow Rate 2.0 2.0 03/25/17 03/25/17 03/25/17 03/25/17 16:58 17:43 19:11 20:00 Temp 98.7 98.7 Pulse 78 81 Resp 16 B/P (MAP) 145/63 (90) Pulse Ox 97 97 95 O2 Delivery Nasal Cannula Nasal Cannula Room Air Nasal Cannula O2 Flow Rate 2.0 2.0 2.0 03/25/17 03/25/17 03/25/17 03/25/17 20:15 21:20 21:29 22:54 Temp 98.2 98.2 Pulse 82 81 61 Resp 16 B/P (MAP) 146/77 146/77 135/61 (85) Pulse Ox 97 96 O2 Delivery Room Air Room Air 03/26/17 03/26/17 03/26/17 03/26/17 02:40 03:07 06:23 07:19 Temp 98.2 97.8 98.2 97.8 Pulse 68 68 74 Resp 16 16 B/P (MAP) 149/66 (93) 149/66 142/65 (90) Pulse Ox 97 97 95 O2 Delivery Room Air Room Air Room Air 03/26/17 03/26/17 03/26/17 03/26/17 07:31 08:00 08:53 08:53 Pulse 74 74 B/P (MAP) 142/65 142/65 Pulse Ox 95 O2 Delivery Room Air Nasal Cannula O2 Flow Rate 2.0 SUKHDEV LARA MD Mar 26, 2017 10:59
[2017-03-26 11:08] VITALS: BP 146/59
[2017-03-26] MEDS ORDERED: LISINOPRIL 5 MG TABLET. PO ONE (11:15)
--- NOTE | 2017-03-26 11:17 | PDOC ---
CARDIO Progress Notes Date and Time Date of Service 03/26/2017 Time of Evaluation 1050 Subjective Subjective: No shortness of breath, No Palpitations, No Dizziness, Other ( lower sternal sharp pain with inspiration/coughing and palpation, ambulated with rehab without difficulty. ) Vitals Vitals Vital Signs Date Time Temp Pulse Resp B/P (MAP) Pulse Ox O2 Delivery O2 Flow Rate FiO2 03/26/17 08:53 74 142/65 03/26/17 08:00 Nasal Cannula 2.0 03/26/17 07:31 95 03/26/17 07:19 97.8 16 97.8 Weight Weight [ ] Laboratory Labs Laboratory Tests Test 03/25/17 18:07 03/26/17 06:40 Influenza Type A Antigen Negative (NEGATIVE) Influenza Type B Antigen Negative (NEGATIVE) Sodium Level 140 mmol/L (136-145) Potassium Level 3.5 mmol/L (3.5-5.1) Chloride Level 104 mmol/L (98-107) Carbon Dioxide Level 22 mmol/L (21-32) Anion Gap 14 (6-14) Blood Urea Nitrogen 18 mg/dL (7-20) Creatinine 1.4 mg/dL (0.6-1.0) Estimated GFR (Cockcroft-Gault) 44.5 Glucose Level 221 mg/dL (70-99) Calcium Level 9.4 mg/dL (8.5-10.1) Physical Exam HEENT: Neck Supple W Full Motion Chest: Symmetric LUNGS: Clear to Auscultation Heart: S1S2, RRR (SR) Abdomen: Soft N/T Extremities: No Calf Tenderness Neurology: alert, oriented, follow commands Other Exams right wrist arteriotomy site intact, neurovascular status intact. Assessment Assessment 1. Chest pain: suspicious for ACS prompting LHC. Presently still has intermittent CP but reproducible with inspiration and cough. Likely MSK. 2. CAD: S/P LHC noted with patent stents to RCA and LAD. EF 75-80% via LHC 3. HTN: controlled but at upper end 4. HLP 5. CKD3 6. COPD Recommendations 1. Continue ASA. Continue with secondary prevention. Increase Lisinopril. 2. V/Q has been ordered per pulmonary. 3. F/U in office in 4 weeks. TC GILBERT APRN Mar 26, 2017 11:17
--- NOTE | 2017-03-26 13:08 | RAD ---
Ventilation/perfusion lung scan, 03/26/2017: History: Shortness of breath, COPD The ventilation study was performed utilizing 21 mCi of xenon-133. Activity in the lungs is symmetric. There is fairly good washout of the xenon from the lungs. Perfusion imaging was performed utilizing 6.0 mCi of technetium 99m MAA. A similar pattern of activity is present in the lungs. No significant unmatched or segmental perfusion defects are seen. IMPRESSION: The probability of pulmonary emboli is considered to be low.
[2017-03-26 14:40] VITALS: BP 137/66
[2017-03-26 15:21] VITALS: BP 137/66
--- NOTE | 2017-03-26 16:00 | PDOC3 ---
Discharge Summary Visit Information Date of Admission: Mar 24, 2017 Date of Discharge: Mar 26, 2017 Admitting Diagnosis Comment: Chief Complaint 1. Chest pain, ACS recent PCI with 2 stents; COSTOCHONDRITIS 2. HTN, controlled 3. CKD stage 3 4. DM 2 5. Dyslipidemia 7. ACUTE BRONCHITIS Brief Hospital Course Allergies Allergies Coded Allergies Type Severity Reaction Last Updated Verified Penicillins Allergy Intermediate 12/11/16 Yes Sulfa (Sulfonamide Antibiotics) Allergy Intermediate 03/24/17 Yes tramadol Allergy Intermediate 12/11/16 Yes Vital Signs Vital Signs Date Time Temp Pulse Resp B/P (MAP) Pulse Ox O2 Delivery O2 Flow Rate FiO2 03/26/17 15:21 75 137/66 03/26/17 14:40 98.5 18 94 Room Air 98.5 03/26/17 08:00 2.0 Lab Results Laboratory Tests Test 03/24/17 20:10 03/25/17 03:43 03/25/17 18:07 03/26/17 06:40 Heparin Anti-Xa Act, Unfractionated 0.40 IU/mL (0.30-0.70) 0.42 IU/mL (0.30-0.70) White Blood Count 9.7 x10^3/uL (4.0-11.0) Red Blood Count 4.01 x10^6/uL (3.50-5.40) Hemoglobin 10.3 g/dL (12.0-15.5) Hematocrit 30.8 % (36.0-47.0) Mean Corpuscular Volume 77 fL (79-100) Mean Corpuscular Hemoglobin 26 pg (25-35) Mean Corpuscular Hemoglobin Concent 33 g/dL (31-37) Red Cell Distribution Width 15.9 % (11.5-14.5) Platelet Count 402 x10^3/uL (140-400) Neutrophils (%) (Auto) 33 % (31-73) Lymphocytes (%) (Auto) 40 % (24-48) Monocytes (%) (Auto) 9 % (0-9) Eosinophils (%) (Auto) 16 % (0-3) Basophils (%) (Auto) 2 % (0-3) Neutrophils # (Auto) 3.2 x10^3uL (1.8-7.7) Lymphocytes # (Auto) 3.9 x10^3/uL (1.0-4.8) Monocytes # (Auto) 0.9 x10^3/uL (0.0-1.1) Eosinophils # (Auto) 1.5 x10^3/uL (0.0-0.7) Basophils # (Auto) 0.2 x10^3/uL (0.0-0.2) Sodium Level 144 mmol/L (136-145) 140 mmol/L (136-145) Potassium Level 3.3 mmol/L (3.5-5.1) 3.5 mmol/L (3.5-5.1) Chloride Level 106 mmol/L (98-107) 104 mmol/L (98-107) Carbon Dioxide Level 28 mmol/L (21-32) 22 mmol/L (21-32) Anion Gap 10 (6-14) 14 (6-14) Blood Urea Nitrogen 19 mg/dL (7-20) 18 mg/dL (7-20) Creatinine 1.4 mg/dL (0.6-1.0) 1.4 mg/dL (0.6-1.0) Estimated GFR (Cockcroft-Gault) 44.5 44.5 Glucose Level 99 mg/dL (70-99) 221 mg/dL (70-99) Calcium Level 9.2 mg/dL (8.5-10.1) 9.4 mg/dL (8.5-10.1) Troponin I Quantitative < 0.017 ng/mL (0.000-0.055) Triglycerides Level 91 mg/dL (0-150) Cholesterol Level 169 mg/dL (0-200) LDL Cholesterol, Calculated 86 mg/dL (0-100) VLDL Cholesterol, Calculated 18 mg/dL (0-40) Non-HDL Cholesterol Calculated 104 mg/dL (0-129) HDL Cholesterol 65 mg/dL (40-60) Cholesterol/HDL Ratio 2.6 Influenza Type A Antigen Negative (NEGATIVE) Influenza Type B Antigen Negative (NEGATIVE) Laboratory Tests Test 03/25/17 18:07 03/26/17 06:40 Influenza Type A Antigen Negative (NEGATIVE) Influenza Type B Antigen Negative (NEGATIVE) Sodium Level 140 mmol/L (136-145) Potassium Level 3.5 mmol/L (3.5-5.1) Chloride Level 104 mmol/L (98-107) Carbon Dioxide Level 22 mmol/L (21-32) Anion Gap 14 (6-14) Blood Urea Nitrogen 18 mg/dL (7-20) Creatinine 1.4 mg/dL (0.6-1.0) Estimated GFR (Cockcroft-Gault) 44.5 Glucose Level 221 mg/dL (70-99) Calcium Level 9.4 mg/dL (8.5-10.1) Brief Hospital Course Ms. Ling is a 72 old Female admitted for CP, Hx CAD with stents, CP assessed to be MSK, costochondritis in nature Being dcd on PO lisinopril 10 and also some medrol dose pack and doxy PO 100 BID x 7 days,- had some uRI sxs, VQ neg, CXR neg Seen and examined. 2 notes today Discharge Information Condition at Discharge: Improved, Stable Disposition/Orders: D/C to Home Scheduled Albuterol Sulfate (Ventolin Hfa Inhaler), 2 PUFF INH Q4HRS Amlodipine Besylate (Amlodipine Besylate), 5 MG PO DAILY, (Reported) Aspirin (Aspirin Ec), 1 TAB PO DAILY, (Reported) Atorvastatin Calcium (Atorvastatin Calcium), 1 TAB PO DAILY, (Reported) Cetirizine Hcl (Cetirizine Hcl), 1 TAB PO DAILY, (Reported) Cholecalciferol (Vitamin D3) (Vitamin D), 50,000 UNIT PO WEEKLY, (Reported) Clopidogrel Bisulfate (Clopidogrel), 1 TAB PO DAILY, (Reported) Dorzolamide Hcl (Dorzolamide Hcl), 1 DROP EACHEYE BID, (Reported) Fluticasone Propionate (Flonase Allergy Relief), 1 SPRAYS NS DAILY, (Reported) Glipizide (Glipizide), 0.05 TAB PO BID, (Reported) Latanoprost (Latanoprost), 1 DROP EACHEYE QHS, (Reported) Lisinopril (Lisinopril), 1 TAB PO DAILY, (Reported) Metoprolol Tartrate (Metoprolol Tartrate), 1 TAB PO HS, (Reported) Metoprolol Tartrate (Metoprolol Tartrate), 1 TAB PO DAILYWBKFT, (Reported) Scheduled PRN Acetaminophen (Tylenol), 2 TAB PO PRN Q6HRS PRN for PAIN, (Reported) Nitroglycerin (NITROGLYCERIN SubLingual), 0.4 MG SL PRN Q5MIN PRN for CHEST PAIN , (Reported) SUKHDEV LARA MD Mar 26, 2017 16:00
[2017-03-26] MEDS ORDERED: DOXY100C2 PO (16:16)
[2017-03-26] MEDS ORDERED: METH4TAB2 PO (16:16)
[2017-03-26] MEDS ORDERED: LISI10TA2 PO (16:16)
[2017-03-26] MEDS ORDERED: BUDE0.5A3 NEB (16:17)
[2017-03-27] MEDS ORDERED: LISINOPRIL 10 MG TABLET PO SCH (09:00)
[2017-04-03] MEDS ORDERED: ERGOCALCIFEROL (VITAMIN D2) 50,000 UNIT CAPSULE. PO SCH (09:00)
== END 2017-03-26 17:00 | disposition home or self-care (01) | DRG 287 ==
LOC: 2 NORTH 15:56
PROVIDERS: ADMIT Internal Medicine; ATTEND Internal Medicine
PROC: 4A023N7 Measurement of Cardiac Sampling and Pressure, Left Heart, Percutaneous Approach (ICD-10-PCS; principal; 2017-03-25)
PROC: B2151ZZ Fluoroscopy of Left Heart using Low Osmolar Contrast (ICD-10-PCS; 2017-03-25)
PROC: B2111ZZ Fluoroscopy of Multiple Coronary Arteries using Low Osmolar Contrast (ICD-10-PCS; 2017-03-25)
DX: R07.89 Other chest pain (principal); E11.22 Type 2 diabetes mellitus with diabetic chronic kidney disease; D72.1 Eosinophilia; J44.0 Chronic obstructive pulmonary disease with (acute) lower respiratory infection; J45.901 Unspecified asthma with (acute) exacerbation; I25.110 Atherosclerotic heart disease of native coronary artery with unstable angina pectoris; N18.3 Chronic kidney disease, stage 3 (moderate); J20.9 Acute bronchitis, unspecified; I12.9 Hypertensive chronic kidney disease with stage 1 through stage 4 chronic kidney disease, or unspecified chronic kidney disease; M94.0 Chondrocostal junction syndrome [Tietze]; E78.5 Hyperlipidemia, unspecified; I25.2 Old myocardial infarction; Z79.82 Long term (current) use of aspirin; Z79.899 Other long term (current) drug therapy; Z82.49 Family history of ischemic heart disease and other diseases of the circulatory system; Z88.0 Allergy status to penicillin; Z88.2 Allergy status to sulfonamides; Z95.5 Presence of coronary angioplasty implant and graft
CPT/HCPCS: 36415; 71020; 78582; 80048; 80061; 84484; 85025; 85520; 87804; 93458; 94250; 94640; 96374; 99152; A9540; A9558; C1769; C1892; J0456; J1644; J2250; J2920; J3010; J3490; J7030; J7050; J7512; J7613; J7626; 97110; J2001

== ENCOUNTER 2018-12-19 14:39 | Inpatient (IN) | payer MEDICARE ==
[~2018-12-19] VITALS: Ht 160 cm; Wt 54.1 kg
[~2018-12-19 14:39] MED LIST changes: -AMLO10TA2 PO; +AMLO10TA8 PO; +BUDE0.5A3 NEB; +CETI10TA16 PO; +CYAN10002 IM; -DORZ10DR3 EACHEYE; +DORZ10DR6 EACHEYE; +DOXY100C2 PO; -IPRA3AMP NEB; +IPRA3AMP29 NEB; +LEVO500T8 PO; +LISI10TA2 PO; +LOSA100T14 PO; -LOSA100T6 PO; +METH4TAB2 PO; -METO50TA2 PO; +METO50TA6 PO; +NITR0.4T22 SL; -SPIR25TA3 PO; +SPIR25TA5 PO
[2018-12-19] MEDS ORDERED: EPINEPHRINE IV PRN (17:45)
[2018-12-19] MEDS ORDERED: NORMAL SALINE IV PRN (17:45)
[2018-12-19 17:47] VITALS: BP 155/67
[2018-12-19] MEDS ORDERED: ALBUTEROL SULFATE 2.5 MG/3 ML NEBU. ONE (18:03)
--- NOTE | 2018-12-19 18:04 | PDOC1 ---
History and Physical Date of Admission Date of Admission DATE: 12/19/18 TIME: 18:01 Identification/Chief Complaint Chief Complaint DIRECT ADMIT BAM MIRANDA CODE ICE IN FIELD, C/O SOB AT HOME ///EMS CALLED, THEN went into arrest / PEA WITH EPI X 3 Past Medical History Past Medical History PAST MEDICAL HISTORY: Significant for coronary artery disease, hypertension, hyperlipidemia, chronic kidney disease, bronchitis as well as COPD. PAST SURGICAL HISTORY: Significant for PCI with stent deployment twice, one in 2012 at [facility] and the other one was at 2017, done at [facility]. FAMILY HISTORY: Positive for hypertension. SOCIAL HISTORY: She lives at home with her family. She does not smoke, drink alcohol or use any recreational drugs. ALLERGIES: ALLERGIC TO PENICILLIN, SULFA DRUGS AND TRAMADOL. Cardiovascular: CAD, HTN, UT, Hyperlipidemia Pulmonary: Asthma, COPD, Pneumonia CENTRAL NERVOUS SYSTEM: CVA, Seizure GI: No pertinent hx Heme/Onc: Anemia NOS Psych: Anxiety, Depression Musculoskeletal: Osteoarthritis Rheumatologic: No pertinent hx Infectious disease: No pertinent hx Renal/: Chronic renal insuff Endocrine: Diabetes Dermatology: No pertinent hx Past Surgical History Past Surgical History: Hysterectomy, Other Family History Family History: Hypertension Social History Smoke: No ALCOHOL: none Drugs: None Current Medications Current Medications Current Medications Epinephrine HCl 8 mg/Sodium Chloride 250 ml @ 0 mls/hr CONT PRN IV SEE I/O RECORD; Start 12/19/18 at 17:45 Active Scripts Active Pulmicort (Budesonide) 0.5 Mg/2 Ml Ampul.neb 1 Vial NEB BID Medrol (Methylprednisolone) 4 Mg Tab.ds.pk 1 Pkg PO UD Lisinopril 10 Mg Tablet 1 Tab PO DAILY Ventolin Hfa Inhaler (Albuterol Sulfate) 18 Gm Hfa.aer.ad 2 Puff INH Q4HRS Reported Levofloxacin 500 Mg Tablet 1 Tab PO DAILY Cyanocobalamin Injection (Cyanocobalamin (Vitamin B-12)) 1,000 Mcg/1 Ml Vial 1 Ml IM WEEKLY Vitamin D (Cholecalciferol (Vitamin D3)) 50,000 Unit Capsule 50,000 Unit PO WEEKLY Cetirizine Hcl 10 Mg Tablet 1 Tab PO DAILY NITROGLYCERIN SubLingual (Nitroglycerin) 0.4 Mg Tab.subl 0.4 Mg SL PRN Q5MIN PRN Clopidogrel (Clopidogrel Bisulfate) 75 Mg Tablet 1 Tab PO DAILY Atorvastatin Calcium 40 Mg Tablet 1 Tab PO DAILY Aspirin Ec (Aspirin) 81 Mg Tablet.dr 1 Tab PO DAILY Tylenol (Acetaminophen) 325 Mg Tablet 2 Tab PO PRN Q6HRS PRN Flonase Allergy Relief (Fluticasone Propionate) 9.9 Ml Crumrod.susp 1 Sprays NS DAILY Glipizide 10 Mg Tablet 0.05 Tab PO BID Dorzolamide Hcl 10 Ml Drops 1 Drop EACHEYE BID Latanoprost 2.5 Ml Drops 1 Drop EACHEYE QHS Allergies Allergies: Coded Allergies: Penicillins (Verified Allergy, Intermediate, 12/11/16) Sulfa (Sulfonamide Antibiotics) (Verified Allergy, Intermediate, 03/24/17) tramadol (Verified Allergy, Intermediate, 12/11/16) ROS Review of System UNABLE TO OBTAIN, ON VENT Physical Exam General: moderate distress HEENT: Atraumatic Lungs: Other (EXP WHEEZES ALL LUNG PINEDA) Breasts: Not examined Rectal Exam: not examined PELVIC: Examination not indicated Extremities: No cyanosis Skin: No significant lesion Neuro: Other Images Images Examination: CT HEAD WO CONTRAST History: Forehead swelling. On anticoagulation. Comparison/Correlation: None Findings: Axial images of the head rotated without contrast. Atrophy is present. No intracranial hemorrhage, midline shift, or mass effect. Cavernous carotid calcifications are present. Minimal scalp edema is noted the right forehead region. No depressed fracture. Extensive polyposis of the ethmoid air cells and hypoplastic frontal sinuses noted. Post thickening is notable involving the right maxillary sinus which is partially visualized. Large mucous retention cyst involving the left maxillary sinus or other mucosal thickening or polypoid involvement noted. Impression: No intracranial hemorrhage. Chronic paranasal sinusitis. CORONARY ANGIOGRAPHY: Right and left coronary angiography was performed using a 6Fr TIG 4.0 catheter. Left ventricular end diastolic pressure was obtained with a pigtail catheter and pullback was performed after left ventriculography. All catheter exchanges and advancements were performed over a guidewire. FINDINGS: HEMODYNAMICS: LVEDP 15 mm Hg No gradient on LV to aortic pullback. AO: 128/78 LEFT VENTRICULOGRAM: Deferred due to known EF of 25% by echo. CORONARY ANGIOGRAPHY: LM is a large caliber vessel with normal angiographic appearance. LAD is a large caliber vessel diffuse irregularities of up 20%, a patent proximal stent and a mid stent with a 90% mid ISR. D1/D2 are small caliber vessels with mild irregularities. LCx is a moderate caliber non-dominant vessel with mild luminal irregularities of up to 20% OM1 is a moderate caliber vessel with normal angiographic appearance. RCA is a large caliber dominant vessel with proximal 20% stenosis, followed by a patent mid stent. RPDA is a moderate caliber vessel with mild luminal irregularities. INTERVENTIONAL TECHNIQUE: Heparin was used for an to regulation for an ACT greater than 200. The patient was Arty on aspirin and Plavix. Through a 6 Fijian JL 35 guide catheter a 0.014 inch pro-water wire was advanced to the distal LAD. Despite multiple angulations and changes to the guide a 2.5 x 8 mm noncompliant balloon could not be delivered past the proximal LAD stent towards the mid LAD stent. Therefore a second wire was placed in the LAD for support and ultimately with the use of an Etienne wire the balloon was able to be delivered for angioplasty. Anoplasty was performed with a 2.5 mm x 8 and a 3.0 x 8 mm noncompliant balloons at 20 jody. To confirm adequate stent expansion a MINDY catheter was advanced towards the mid LAD stent and this again was also difficult due to the tortuosity in the LAD as well as the proximal stent struts leading to some difficulty with delivery. Therefore this was a complex case. The IVUS catheter was ultimately able to be delivered to the mid LAD stent and this revealed excellent stent apposition. The vessel wall was measured at approximately 3 mm and the noncompliant 3 mm balloon revealed excellent expansion. Post-PCI angiography demonstrated NOMI 3 flow in the vessel without any obvious evidence of guide or wire related complications. Intracoronary after booster was administered. The patient was given Effient 60 mg. There were no acute competitions. CLOSURE: At case completion the right radial sheath was removed and a Terumo radial band was applied with 13 ml of air. COMPLICATIONS: The patient tolerated the procedure well and there were no immediate complications. NOMI Flow NOMI Flow (Pre-Intervention): NOMI-3 NOMI Flow (Post-Intervention): NOMI-3 Conclusion 1. Normal left sided filling pressures. 2. Two vessel coronary disease with severe ISR of mid LAD stent. 3. Successful PTCA of the mid LAD with a 3.0/8 mm NC balloon at 18 jody. 4. IVUS confirmed adequate stent expansion and no evidence of dissection. Recommendations ASA 81mg daily Prasugrel 10mg daily for 1 month, then convert back to plavix. Aggressive medical therapy. VTE Prophylaxis Ordered VTE Prophylaxis Devices: Yes VTE Pharmacological Prophylaxi: Yes Assessment/Plan Assessment/Plan ASSESSMENT AND PLAN: 1. witnessed cardiac arrest in field, DIRECT ADMIT //transfer from [place] [facility] 2. Recent non-ST segment elevation myocardial infarction, status post PTCA to left anterior with mild disease to other major vessels, ischemic cardiomyopathy, ejection fraction of 35-40%, 3 Coronary artery disease with past PCI and stent deployment to the right coronary artery and PCI to left anterior and right coronary artery in 2017. LAD is a large caliber vessel diffuse irregularities of up 20%, a patent proximal stent and a mid stent with a 90% mid ISR. 12/09 4. Accelerated hypertension, chronic systolic 5. diastolic congestive heart failure, compensated. 6 Type 2 diabetes, 7. hyperlipidemia, 8 chronic kidney disease. 9. Chronic paranasal sinusitis. 10. concern for aspiration at time of arrest in field 11. known EF of 25% by echo. PLAN CODE ICE PROTOCOL CONSULT CARDIOLOGY CONSULT PULM MED ADMIT ICU RENAL CONSULT IV SOLUMEDROL 100MG Q 6 HRS EMPERIC IV ANTIBIOTICS , possible aspiration, merem 500mg q 8 hrs, levaquin 500mg iv q 24 hrs duonebs qid budesonide 0.5 mg bid nebs blood cultures x 2 pressors prn UDS 114 min cc time RUBEN FONTANA MD Dec 19, 2018 18:04
[2018-12-19] MEDS ORDERED: PROPOFOL 100 ML IV ONE (18:05)
[2018-12-19] MEDS ORDERED: MIDAZOLAM 100mg/100ml NS BAG 100 ML IV PRN ×2 (18:15)
[2018-12-19] MEDS ORDERED: MIDAZOLAM HCL/PF 2 MG/2 ML VIAL. IV ONE (18:15)
[2018-12-19] MEDS ORDERED: VECURONIUM BOLUS 10 MG VIAL. IV PRN (18:15)
[2018-12-19] MEDS ORDERED: fentaNYL PF VIAL 100 MCG/2 ML VIAL IV ONE (18:15)
[2018-12-19] MEDS ORDERED: PROPOFOL 100 ML IV PRN (18:15)
[2018-12-19] MEDS ORDERED: POLYVINYL ALCOHOL 1.4% OPHTH SOLUTION 15ML BOTTLE. OU PRN (18:15)
[2018-12-19] MEDS ORDERED: methylPREDNISolone SOD SUCC PF 125 MG/2 ML VIAL. ONE (18:28)
[2018-12-19] MEDS ORDERED: 0.9 % SODIUM CHLORIDE 10 ML DISP.SYRIN. IV PRN (18:30)
[2018-12-19] MEDS ORDERED: ONDANSETRON PF 4 MG/2 ML VIAL. IV PRN (18:30)
[2018-12-19] MEDS ORDERED: BISACODYL 10 MG SUPP.RECT. PR PRN (18:30)
[2018-12-19] MEDS: IV NORMAL SALINE 1000ML BAG 1,000 ML IV SCH ×2 (18:45→19:00)
[2018-12-19] MEDS ORDERED: methylPREDNISolone SOD SUCC PF 125 MG/2 ML VIAL. IV ONE (18:45)
[2018-12-19] MEDS ORDERED: IV NORMAL SALINE 1000ML BAG 1,560 ML IV SCH (18:50)
[2018-12-19 19:00] VITALS: BP 169/71
[2018-12-19] MEDS ORDERED: NOREPINEPHRIN 8MG/250ML PREMIX 250 ML IV PRN (19:00)
[2018-12-19] MEDS: POLYVINYL ALCOHOL 1.4% OPHTH SOLUTION 15ML BOTTLE. OU SCH (19:00)
[2018-12-19] MEDS: busPIRone 10 MG TABLET. NG SCH (19:00)
[2018-12-19] MEDS: ACETAMINOPHEN 650 MG/20.3 ML SOLUTION. NG SCH ×2 (19:00→23:00)
[2018-12-19] MEDS ORDERED: IV NORMAL SALINE 500ML BAG 500 ML IV PRN (19:00)
--- NOTE | 2018-12-19 19:00 | NUR ---
per report from day shift RADHA Kemp, pt received 2000mL of NS at [place] before transfer to this facility. therefore, no extra sepsis fluids given at this time and non-administered on the eMAR. will continue to closely monitor.
[2018-12-19 19:03] LABS: BASO # 0.1 x10^3/uL (0.0-0.2); BASO % 1 % (0-3); EOS # 0.7 x10^3/uL (0.0-0.7); EOS % 4 % (0-3); HEMATOCRIT 31.1 % (36.0-47.0); LYMPH # 2.5 x10^3/uL (1.0-4.8); LYMPH % 15 % (24-48); MEAN CORPUSCULAR HEMOGLOBIN 26 pg (25-35); MEAN CORPUSCULAR HGB CONC 32 g/dL (31-37); MEAN CORPUSCULAR VOLUME 79 fL (79-100); MONO # 1.7 x10^3/uL (0.0-1.1); MONO % 10 % (0-9); NEUT # 11.7 x10^3uL (1.8-7.7); NEUT % 71 % (31-73); PLATELET COUNT 278 x10^3/uL (140-400); RED BLOOD COUNT 3.91 x10^6/uL (3.50-5.40); RED CELL DISTRIBUTION WIDTH 15.9 % (11.5-14.5); WHITE BLOOD COUNT 16.6 x10^3/uL (4.0-11.0)
[2018-12-19 19:12] LABS: PROTHROMBIN TIME PATIENT 14.2 SEC (11.7-14.0)
[2018-12-19] MEDS: PROPOFOL 100 ML IV PRN (19:13)
[2018-12-19 19:19] LABS: CREATININE 1.8 mg/dL (0.6-1.0); GFR 33.2; POTASSIUM 4.1 mmol/L (3.5-5.1)
[2018-12-19 19:25] LABS: ALBUMIN 3.6 g/dL (3.4-5.0); ALBUMIN/GLOBULIN RATIO 1.2 (1.0-1.7); PARTIAL THROMBOPLASTIN TIME > 150 SEC (24-38); TOTAL BILIRUBIN 0.3 mg/dL (0.2-1.0); TOTAL PROTEIN 6.6 g/dL (6.4-8.2)
[2018-12-19 19:38] LABS: BASE EXCESS ABG -1 mmol/L (-3-3); CORRECTED PCO2 ABG 34 mmHg; CORRECTED PH ABG 7.45; CORRECTED PO2 ABG 129 mmHg; HCO3 ABG 24 mmol/L (21-28); PCO2 ABG 40 mmHg (35-46); PO2 ABG 150 mmHg (65-108); SAT O2 ABG 99 % (92-99)
[2018-12-19 19:39] LABS: FIO2 ABG 40
[2018-12-19 20:00] VITALS: BP 176/81
[2018-12-19] MEDS: MEROPENEM 500 MG in IV NORMAL SALINE 50ML 50 ML IV SCH (20:11)
--- NOTE | 2018-12-19 20:30 | NUR ---
Dr Haddad phoned unit, requesting update on pt; update included but not limited to vitals, labs, code status change, lab schedule, drip rate of current IV meds and circumstances surrounded pt's admit to [facility] and subsequent transfer to our facility. new orders received and noted. will pass on in report, will continue to closely monitor.
[2018-12-19 21:00] VITALS: BP 137/67
[2018-12-19] MEDS ORDERED: HEPARIN for IV BOLUS 10,000 UNIT/10 ML VIAL. IV PRN (21:00)
[2018-12-19] MEDS ORDERED: HEPARIN 25,000UTS/500ML PREMIX 500 ML IV PRN ×2 (21:00)
[2018-12-19] MEDS ORDERED: HEPARIN for SUB-Q USE 5,000 UNIT/ML VIAL. SQ SCH ×2 (21:00)
[2018-12-19] MEDS ORDERED: FAMOTIDINE 20 MG/2 ML VIAL IVP SCH (21:00)
--- NOTE | 2018-12-19 21:21 | RAD ---
EXAM: Abdomen, single view. HISTORY: Nasogastric tube placement. COMPARISON: None. FINDINGS: A frontal view of the abdomen is obtained. There is a nasogastric tube with the tip in the proximal stomach and the side port within the distal esophagus. There are distended air-filled loops of bowel throughout the abdomen. IMPRESSION: 1. Nasogastric tube with the tip in the proximal stomach and the side-port within the distal esophagus. Slight tube advancement is recommended. 2. Distended air-filled loops of bowel throughout the abdomen. This may be due to ileus or partial distal obstruction. Electronically signed by: Heather Awan MD (12/19/2018 9:18 PM) [facility]
--- NOTE | 2018-12-19 21:21 | RAD ---
EXAM: Chest, single view. HISTORY: Code ice. COMPARISON: None. FINDINGS: A frontal view of the chest is obtained. There is nasogastric tube within the proximal stomach with the side-port in the distal esophagus. There is an endotracheal tube within the mid trachea. There is no infiltrate, pleural effusion or pneumothorax. There is a coronary artery stent. The heart is normal in size. IMPRESSION: 1. No acute pulmonary finding. 2. Nasogastric tube within the proximal stomach with the side-port in the distal esophagus. Tube advancement is recommended. 3. Endotracheal tube within the mid trachea. Electronically signed by: Heather Awan MD (12/19/2018 9:18 PM) [facility]
[2018-12-19] MEDS: methylPREDNISolone SOD SUCC PF 125 MG/2 ML VIAL. IV SCH (21:22)
[2018-12-19 22:00] VITALS: BP 110/60
[2018-12-19 23:00] VITALS: BP 110/57
[2018-12-20] VITALS (24 sets, daily range): BP systolic 86–162; BP diastolic 50–82
[2018-12-20 01:14] LABS: BILIRUBIN,URINE NEGATIVE (NEG); CLARITY,URINE CLEAR; COLOR,URINE YELLOW; NITRITE,URINE NEGATIVE (NEG); PROTEIN,URINE 100 mg/dL (NEG-TRACE); UROBILINOGEN,URINE 0.2 mg/dL (0.2 mg/dL)
[2018-12-20 01:21] LABS: BARBITURATES NEG (NEG); BENZODIAZEPINES POS (NEG); CANNABINOIDS NEG (NEG); COCAINE NEG (NEG); METHADONE NEG (NEG); OPIATES NEG (NEG); PHENCYCLIDINE NEG (NEG); SQUAMOUS EPITHELIAL CELL,UR FEW /LPF
[2018-12-20 01:22] LABS: AMORPHOUS SEDIMENT,UR PRESENT /HPF; BACTERIA,URINE 0 /HPF (0-FEW)
[2018-12-20 01:23] LABS: AMPHETAMINE/METHAMPHETAMINE NEG (NEG)
[2018-12-20] MEDS: busPIRone 10 MG TABLET. NG SCH ×3 (03:00→18:27)
[2018-12-20] MEDS: ACETAMINOPHEN 650 MG/20.3 ML SOLUTION. NG SCH ×6 (03:00→23:00)
[2018-12-20 04:29] LABS: BASO % 0 % (0-3); EOS % 0 % (0-3); HEMATOCRIT 29.3 % (36.0-47.0); HEMOGLOBIN 9.4 g/dL (12.0-15.5); LYMPH # 1.2 x10^3/uL (1.0-4.8); LYMPH % 10 % (24-48); MEAN CORPUSCULAR HEMOGLOBIN 26 pg (25-35); MEAN CORPUSCULAR HGB CONC 32 g/dL (31-37); MEAN CORPUSCULAR VOLUME 80 fL (79-100); MONO # 0.3 x10^3/uL (0.0-1.1); MONO % 2 % (0-9); NEUT # 10.3 x10^3uL (1.8-7.7); NEUT % 87 % (31-73); PLATELET COUNT 196 x10^3/uL (140-400); RED BLOOD COUNT 3.68 x10^6/uL (3.50-5.40); RED CELL DISTRIBUTION WIDTH 16.3 % (11.5-14.5); WHITE BLOOD COUNT 11.8 x10^3/uL (4.0-11.0)
[2018-12-20 05:11] LABS: % BANDS 1 % (0-9); % LYMPHS 12 % (24-48); % MONOS 3 % (0-10); % SEGS 84 % (35-66); PLT ESTIMATE ADEQUATE (ADEQUATE); POIKILOCYTOSIS MOD
[2018-12-20 05:12] LABS: SCHISTOCYTES FEW
[2018-12-20 05:51] LABS: PROTHROMBIN TIME PATIENT 13.8 SEC (11.7-14.0)
[2018-12-20] MEDS: methylPREDNISolone SOD SUCC PF 125 MG/2 ML VIAL. IV SCH ×3 (06:03→21:12)
[2018-12-20] MEDS: POLYVINYL ALCOHOL 1.4% OPHTH SOLUTION 15ML BOTTLE. OU SCH ×4 (06:03→18:26)
[2018-12-20] MEDS ORDERED: IPRATRPIUM/ALBUTEROL 0.5/2.5MG 3 ML NEBU. ONE (06:17)
[2018-12-20] MEDS ORDERED: BUDESONIDE 0.5 MG/2 ML NEBU. NEB ONE (06:17)
[2018-12-20] MEDS: BUDESONIDE 0.5 MG/2 ML NEBU. NEB SCH ×2 (06:19→19:58)
[2018-12-20] MEDS: IPRATRPIUM/ALBUTEROL 0.5/2.5MG 3 ML NEBU. NEB SCH ×4 (06:19→19:57)
[2018-12-20 06:25] LABS: MAGNESIUM 3.2 mg/dL (1.8-2.4); PHOSPHORUS 2.5 mg/dL (2.6-4.7)
[2018-12-20 06:32] LABS: CALCIUM 8.8 mg/dL (8.5-10.1); CREATININE 1.8 mg/dL (0.6-1.0); GFR 33.2; POTASSIUM 3.6 mmol/L (3.5-5.1); TOTAL BILIRUBIN 0.4 mg/dL (0.2-1.0); TOTAL PROTEIN 6.1 g/dL (6.4-8.2)
--- NOTE | 2018-12-20 08:25 | PDOC ---
PROGRESS NOTES Chief Complaint Chief Complaint A/P: Cardiac arrest Ischemic cardiomyopathy EF 35-40%, most recently 25% Coronary artery disease with past PCI and stent deployment to the right coronary artery and PCI to left anterior and right coronary artery in 2017. Accelerated hypertension Chronic systolic and diastolic congestive heart failure Type 2 diabetes Hyperlipidemia, Chronic kidney disease. History of Present Illness History of Present Illness Ms Ling is a 73yo F w/ PMHx CAD s/p YMEI x2 (2012 and 2016), HTN, HLD, CKD, COPD, prior CVA, DM2 who is directly admitted from [facility] after calling EMS with shortness of breath at home, found in PEA arrest EPI X 3 with ROSC. Admitted to ICU for further care. Vitals Vitals Vital Signs Date Time Temp Pulse Resp B/P (MAP) Pulse Ox O2 Delivery O2 Flow Rate FiO2 12/20/18 07:00 50 20 112/54 (73) 100 Ventilator 12/20/18 07:00 91.5 Physical Exam General: moderate distress Lungs: Clear, Other Extremities: No cyanosis Skin: No significant lesion Labs LABS Laboratory Tests Test 12/19/18 18:50 12/19/18 19:20 12/19/18 23:10 12/20/18 00:10 White Blood Count 16.6 x10^3/uL (4.0-11.0) Red Blood Count 3.91 x10^6/uL (3.50-5.40) Hemoglobin 10.0 g/dL (12.0-15.5) Hematocrit 31.1 % (36.0-47.0) Mean Corpuscular Volume 79 fL (79-100) Mean Corpuscular Hemoglobin 26 pg (25-35) Mean Corpuscular Hemoglobin Concent 32 g/dL (31-37) Red Cell Distribution Width 15.9 % (11.5-14.5) Platelet Count 278 x10^3/uL (140-400) Neutrophils (%) (Auto) 71 % (31-73) Lymphocytes (%) (Auto) 15 % (24-48) Monocytes (%) (Auto) 10 % (0-9) Eosinophils (%) (Auto) 4 % (0-3) Basophils (%) (Auto) 1 % (0-3) Neutrophils # (Auto) 11.7 x10^3uL (1.8-7.7) Lymphocytes # (Auto) 2.5 x10^3/uL (1.0-4.8) Monocytes # (Auto) 1.7 x10^3/uL (0.0-1.1) Eosinophils # (Auto) 0.7 x10^3/uL (0.0-0.7) Basophils # (Auto) 0.1 x10^3/uL (0.0-0.2) Prothrombin Time 14.2 SEC (11.7-14.0) Prothromb Time International Ratio 1.1 (0.8-1.1) Activated Partial Thromboplast Time > 150 SEC (24-38) Heparin Anti-Xa Act, Unfractionated 0.82 IU/mL (0.30-0.70) Sodium Level 143 mmol/L (136-145) Potassium Level 4.1 mmol/L (3.5-5.1) Chloride Level 106 mmol/L (98-107) Carbon Dioxide Level 23 mmol/L (21-32) Anion Gap 14 (6-14) Blood Urea Nitrogen 17 mg/dL (7-20) Creatinine 1.8 mg/dL (0.6-1.0) Estimated GFR (Cockcroft-Gault) 33.2 BUN/Creatinine Ratio 9 (6-20) Glucose Level 255 mg/dL (70-99) Lactic Acid Level 2.3 mmol/L (0.4-2.0) 2.2 mmol/L (0.4-2.0) Calcium Level 9.0 mg/dL (8.5-10.1) Total Bilirubin 0.3 mg/dL (0.2-1.0) Aspartate Amino Transf (AST/SGOT) 65 U/L (15-37) Alanine Aminotransferase (ALT/SGPT) 45 U/L (14-59) Alkaline Phosphatase 87 U/L (46-116) Troponin I Quantitative 0.085 ng/mL (0.000-0.055) Total Protein 6.6 g/dL (6.4-8.2) Albumin 3.6 g/dL (3.4-5.0) Albumin/Globulin Ratio 1.2 (1.0-1.7) Procalcitonin 0.72 ng/mL (0.00-0.10) Thyroid Stimulating Hormone (TSH) 2.094 uIU/mL (0.358-3.74) O2 Saturation 99 % (92-99) Arterial Blood pH 7.40 (7.35-7.45) Arterial Blood pH (Temp corrected) 7.45 Arterial Blood pCO2 at Patient Temp 40 mmHg (35-46) Arterial Blood pCO2 (Temp correct) 34 mmHg Arterial Blood pO2 at Patient Temp 150 mmHg (65-108) Arterial Blood pO2 (Temp corrected) 129 mmHg Arterial Blood HCO3 24 mmol/L (21-28) Arterial Blood Base Excess -1 mmol/L (-3-3) FiO2 40 Urine Collection Type Unknown Urine Color Yellow Urine Clarity Clear Urine pH 7.0 Urine Specific [place]ucopia 1.015 Urine Protein 100 mg/dL (NEG-TRACE) Urine Glucose (UA) >=1000 mg/dL (NEG) Urine Ketones (Stick) 15 mg/dL (NEG) Urine Blood Trace (NEG) Urine Nitrite Negative (NEG) Urine Bilirubin Negative (NEG) Urine Urobilinogen Dipstick 0.2 mg/dL (0.2 mg/dL) Urine Leukocyte Esterase Negative (NEG) Urine RBC 6-10 /HPF (0-2) Urine WBC 5-10 /HPF (0-4) Urine Squamous Epithelial Cells Few /LPF Urine Amorphous Sediment Present /HPF Urine Bacteria 0 /HPF (0-FEW) Urine Mucus Slight /LPF Urine Opiates Screen Neg (NEG) Urine Methadone Screen Neg (NEG) Urine Barbiturates Neg (NEG) Urine Phencyclidine Screen Neg (NEG) Urine Amphetamine/Methamphetamine Neg (NEG) Urine Benzodiazepines Screen Pos (NEG) Urine Cocaine Screen Neg (NEG) Urine Cannabinoids Screen Neg (NEG) Urine Ethyl Alcohol Neg (NEG) Test 12/20/18 04:00 12/20/18 04:45 12/20/18 05:00 White Blood Count 11.8 x10^3/uL (4.0-11.0) Red Blood Count 3.68 x10^6/uL (3.50-5.40) Hemoglobin 9.4 g/dL (12.0-15.5) Hematocrit 29.3 % (36.0-47.0) Mean Corpuscular Volume 80 fL (79-100) Mean Corpuscular Hemoglobin 26 pg (25-35) Mean Corpuscular Hemoglobin Concent 32 g/dL (31-37) Red Cell Distribution Width 16.3 % (11.5-14.5) Platelet Count 196 x10^3/uL (140-400) Neutrophils (%) (Auto) 87 % (31-73) Lymphocytes (%) (Auto) 10 % (24-48) Monocytes (%) (Auto) 2 % (0-9) Eosinophils (%) (Auto) 0 % (0-3) Basophils (%) (Auto) 0 % (0-3) Neutrophils # (Auto) 10.3 x10^3uL (1.8-7.7) Lymphocytes # (Auto) 1.2 x10^3/uL (1.0-4.8) Monocytes # (Auto) 0.3 x10^3/uL (0.0-1.1) Eosinophils # (Auto) 0.0 x10^3/uL (0.0-0.7) Basophils # (Auto) 0.0 x10^3/uL (0.0-0.2) Segmented Neutrophils % 84 % (35-66) Band Neutrophils % 1 % (0-9) Lymphocytes % 12 % (24-48) Monocytes % 3 % (0-10) Platelet Estimate Adequate (ADEQUATE) Poikilocytosis Mod Crenated Cell Present Schistocytes Few Lactic Acid Level 1.8 mmol/L (0.4-2.0) Prothrombin Time 13.8 SEC (11.7-14.0) Prothromb Time International Ratio 1.1 (0.8-1.1) Heparin Anti-Xa Act, Unfractionated 0.46 IU/mL (0.30-0.70) Sodium Level 143 mmol/L (136-145) Potassium Level 3.6 mmol/L (3.5-5.1) Chloride Level 105 mmol/L (98-107) Carbon Dioxide Level 22 mmol/L (21-32) Anion Gap 16 (6-14) Blood Urea Nitrogen 22 mg/dL (7-20) Creatinine 1.8 mg/dL (0.6-1.0) Estimated GFR (Cockcroft-Gault) 33.2 BUN/Creatinine Ratio 12 (6-20) Glucose Level 338 mg/dL (70-99) Calcium Level 8.8 mg/dL (8.5-10.1) Phosphorus Level 2.5 mg/dL (2.6-4.7) Magnesium Level 3.2 mg/dL (1.8-2.4) Total Bilirubin 0.4 mg/dL (0.2-1.0) Aspartate Amino Transf (AST/SGOT) 56 U/L (15-37) Alanine Aminotransferase (ALT/SGPT) 39 U/L (14-59) Alkaline Phosphatase 73 U/L (46-116) Total Protein 6.1 g/dL (6.4-8.2) Albumin 3.0 g/dL (3.4-5.0) Albumin/Globulin Ratio 1.0 (1.0-1.7) Comment Review of Relevant I have reviewed the following items glo (where applicable) has been applied. Labs Laboratory Tests Test 12/19/18 18:50 12/19/18 19:20 12/19/18 23:10 12/20/18 00:10 White Blood Count 16.6 x10^3/uL (4.0-11.0) Red Blood Count 3.91 x10^6/uL (3.50-5.40) Hemoglobin 10.0 g/dL (12.0-15.5) Hematocrit 31.1 % (36.0-47.0) Mean Corpuscular Volume 79 fL (79-100) Mean Corpuscular Hemoglobin 26 pg (25-35) Mean Corpuscular Hemoglobin Concent 32 g/dL (31-37) Red Cell Distribution Width 15.9 % (11.5-14.5) Platelet Count 278 x10^3/uL (140-400) Neutrophils (%) (Auto) 71 % (31-73) Lymphocytes (%) (Auto) 15 % (24-48) Monocytes (%) (Auto) 10 % (0-9) Eosinophils (%) (Auto) 4 % (0-3) Basophils (%) (Auto) 1 % (0-3) Neutrophils # (Auto) 11.7 x10^3uL (1.8-7.7) Lymphocytes # (Auto) 2.5 x10^3/uL (1.0-4.8) Monocytes # (Auto) 1.7 x10^3/uL (0.0-1.1) Eosinophils # (Auto) 0.7 x10^3/uL (0.0-0.7) Basophils # (Auto) 0.1 x10^3/uL (0.0-0.2) Prothrombin Time 14.2 SEC (11.7-14.0) Prothromb Time International Ratio 1.1 (0.8-1.1) Activated Partial Thromboplast Time > 150 SEC (24-38) Heparin Anti-Xa Act, Unfractionated 0.82 IU/mL (0.30-0.70) Sodium Level 143 mmol/L (136-145) Potassium Level 4.1 mmol/L (3.5-5.1) Chloride Level 106 mmol/L (98-107) Carbon Dioxide Level 23 mmol/L (21-32) Anion Gap 14 (6-14) Blood Urea Nitrogen 17 mg/dL (7-20) Creatinine 1.8 mg/dL (0.6-1.0) Estimated GFR (Cockcroft-Gault) 33.2 BUN/Creatinine Ratio 9 (6-20) Glucose Level 255 mg/dL (70-99) Lactic Acid Level 2.3 mmol/L (0.4-2.0) 2.2 mmol/L (0.4-2.0) Calcium Level 9.0 mg/dL (8.5-10.1) Total Bilirubin 0.3 mg/dL (0.2-1.0) Aspartate Amino Transf (AST/SGOT) 65 U/L (15-37) Alanine Aminotransferase (ALT/SGPT) 45 U/L (14-59) Alkaline Phosphatase 87 U/L (46-116) Troponin I Quantitative 0.085 ng/mL (0.000-0.055) Total Protein 6.6 g/dL (6.4-8.2) Albumin 3.6 g/dL (3.4-5.0) Albumin/Globulin Ratio 1.2 (1.0-1.7) Procalcitonin 0.72 ng/mL (0.00-0.10) Thyroid Stimulating Hormone (TSH) 2.094 uIU/mL (0.358-3.74) O2 Saturation 99 % (92-99) Arterial Blood pH 7.40 (7.35-7.45) Arterial Blood pH (Temp corrected) 7.45 Arterial Blood pCO2 at Patient Temp 40 mmHg (35-46) Arterial Blood pCO2 (Temp correct) 34 mmHg Arterial Blood pO2 at Patient Temp 150 mmHg (65-108) Arterial Blood pO2 (Temp corrected) 129 mmHg Arterial Blood HCO3 24 mmol/L (21-28) Arterial Blood Base Excess -1 mmol/L (-3-3) FiO2 40 Urine Collection Type Unknown Urine Color Yellow Urine Clarity Clear Urine pH 7.0 Urine Specific [place]ucopia 1.015 Urine Protein 100 mg/dL (NEG-TRACE) Urine Glucose (UA) >=1000 mg/dL (NEG) Urine Ketones (Stick) 15 mg/dL (NEG) Urine Blood Trace (NEG) Urine Nitrite Negative (NEG) Urine Bilirubin Negative (NEG) Urine Urobilinogen Dipstick 0.2 mg/dL (0.2 mg/dL) Urine Leukocyte Esterase Negative (NEG) Urine RBC 6-10 /HPF (0-2) Urine WBC 5-10 /HPF (0-4) Urine Squamous Epithelial Cells Few /LPF Urine Amorphous Sediment Present /HPF Urine Bacteria 0 /HPF (0-FEW) Urine Mucus Slight /LPF Urine Opiates Screen Neg (NEG) Urine Methadone Screen Neg (NEG) Urine Barbiturates Neg (NEG) Urine Phencyclidine Screen Neg (NEG) Urine Amphetamine/Methamphetamine Neg (NEG) Urine Benzodiazepines Screen Pos (NEG) Urine Cocaine Screen Neg (NEG) Urine Cannabinoids Screen Neg (NEG) Urine Ethyl Alcohol Neg (NEG) Test 12/20/18 04:00 12/20/18 04:45 12/20/18 05:00 White Blood Count 11.8 x10^3/uL (4.0-11.0) Red Blood Count 3.68 x10^6/uL (3.50-5.40) Hemoglobin 9.4 g/dL (12.0-15.5) Hematocrit 29.3 % (36.0-47.0) Mean Corpuscular Volume 80 fL (79-100) Mean Corpuscular Hemoglobin 26 pg (25-35) Mean Corpuscular Hemoglobin Concent 32 g/dL (31-37) Red Cell Distribution Width 16.3 % (11.5-14.5) Platelet Count 196 x10^3/uL (140-400) Neutrophils (%) (Auto) 87 % (31-73) Lymphocytes (%) (Auto) 10 % (24-48) Monocytes (%) (Auto) 2 % (0-9) Eosinophils (%) (Auto) 0 % (0-3) Basophils (%) (Auto) 0 % (0-3) Neutrophils # (Auto) 10.3 x10^3uL (1.8-7.7) Lymphocytes # (Auto) 1.2 x10^3/uL (1.0-4.8) Monocytes # (Auto) 0.3 x10^3/uL (0.0-1.1) Eosinophils # (Auto) 0.0 x10^3/uL (0.0-0.7) Basophils # (Auto) 0.0 x10^3/uL (0.0-0.2) Segmented Neutrophils % 84 % (35-66) Band Neutrophils % 1 % (0-9) Lymphocytes % 12 % (24-48) Monocytes % 3 % (0-10) Platelet Estimate Adequate (ADEQUATE) Poikilocytosis Mod Crenated Cell Present Schistocytes Few Lactic Acid Level 1.8 mmol/L (0.4-2.0) Prothrombin Time 13.8 SEC (11.7-14.0) Prothromb Time International Ratio 1.1 (0.8-1.1) Heparin Anti-Xa Act, Unfractionated 0.46 IU/mL (0.30-0.70) Sodium Level 143 mmol/L (136-145) Potassium Level 3.6 mmol/L (3.5-5.1) Chloride Level 105 mmol/L (98-107) Carbon Dioxide Level 22 mmol/L (21-32) Anion Gap 16 (6-14) Blood Urea Nitrogen 22 mg/dL (7-20) Creatinine 1.8 mg/dL (0.6-1.0) Estimated GFR (Cockcroft-Gault) 33.2 BUN/Creatinine Ratio 12 (6-20) Glucose Level 338 mg/dL (70-99) Calcium Level 8.8 mg/dL (8.5-10.1) Phosphorus Level 2.5 mg/dL (2.6-4.7) Magnesium Level 3.2 mg/dL (1.8-2.4) Total Bilirubin 0.4 mg/dL (0.2-1.0) Aspartate Amino Transf (AST/SGOT) 56 U/L (15-37) Alanine Aminotransferase (ALT/SGPT) 39 U/L (14-59) Alkaline Phosphatase 73 U/L (46-116) Total Protein 6.1 g/dL (6.4-8.2) Albumin 3.0 g/dL (3.4-5.0) Albumin/Globulin Ratio 1.0 (1.0-1.7) Laboratory Tests Test 12/19/18 18:50 12/19/18 19:20 12/19/18 23:10 12/20/18 00:10 White Blood Count 16.6 x10^3/uL (4.0-11.0) Red Blood Count 3.91 x10^6/uL (3.50-5.40) Hemoglobin 10.0 g/dL (12.0-15.5) Hematocrit 31.1 % (36.0-47.0) Mean Corpuscular Volume 79 fL (79-100) Mean Corpuscular Hemoglobin 26 pg (25-35) Mean Corpuscular Hemoglobin Concent 32 g/dL (31-37) Red Cell Distribution Width 15.9 % (11.5-14.5) Platelet Count 278 x10^3/uL (140-400) Neutrophils (%) (Auto) 71 % (31-73) Lymphocytes (%) (Auto) 15 % (24-48) Monocytes (%) (Auto) 10 % (0-9) Eosinophils (%) (Auto) 4 % (0-3) Basophils (%) (Auto) 1 % (0-3) Neutrophils # (Auto) 11.7 x10^3uL (1.8-7.7) Lymphocytes # (Auto) 2.5 x10^3/uL (1.0-4.8) Monocytes # (Auto) 1.7 x10^3/uL (0.0-1.1) Eosinophils # (Auto) 0.7 x10^3/uL (0.0-0.7) Basophils # (Auto) 0.1 x10^3/uL (0.0-0.2) Prothrombin Time 14.2 SEC (11.7-14.0) Prothromb Time International Ratio 1.1 (0.8-1.1) Activated Partial Thromboplast Time > 150 SEC (24-38) Heparin Anti-Xa Act, Unfractionated 0.82 IU/mL (0.30-0.70) Sodium Level 143 mmol/L (136-145) Potassium Level 4.1 mmol/L (3.5-5.1) Chloride Level 106 mmol/L (98-107) Carbon Dioxide Level 23 mmol/L (21-32) Anion Gap 14 (6-14) Blood Urea Nitrogen 17 mg/dL (7-20) Creatinine 1.8 mg/dL (0.6-1.0) Estimated GFR (Cockcroft-Gault) 33.2 BUN/Creatinine Ratio 9 (6-20) Glucose Level 255 mg/dL (70-99) Lactic Acid Level 2.3 mmol/L (0.4-2.0) 2.2 mmol/L (0.4-2.0) Calcium Level 9.0 mg/dL (8.5-10.1) Total Bilirubin 0.3 mg/dL (0.2-1.0) Aspartate Amino Transf (AST/SGOT) 65 U/L (15-37) Alanine Aminotransferase (ALT/SGPT) 45 U/L (14-59) Alkaline Phosphatase 87 U/L (46-116) Troponin I Quantitative 0.085 ng/mL (0.000-0.055) Total Protein 6.6 g/dL (6.4-8.2) Albumin 3.6 g/dL (3.4-5.0) Albumin/Globulin Ratio 1.2 (1.0-1.7) Procalcitonin 0.72 ng/mL (0.00-0.10) Thyroid Stimulating Hormone (TSH) 2.094 uIU/mL (0.358-3.74) O2 Saturation 99 % (92-99) Arterial Blood pH 7.40 (7.35-7.45) Arterial Blood pH (Temp corrected) 7.45 Arterial Blood pCO2 at Patient Temp 40 mmHg (35-46) Arterial Blood pCO2 (Temp correct) 34 mmHg Arterial Blood pO2 at Patient Temp 150 mmHg (65-108) Arterial Blood pO2 (Temp corrected) 129 mmHg Arterial Blood HCO3 24 mmol/L (21-28) Arterial Blood Base Excess -1 mmol/L (-3-3) FiO2 40 Urine Collection Type Unknown Urine Color Yellow Urine Clarity Clear Urine pH 7.0 Urine Specific [place]opia 1.015 Urine Protein 100 mg/dL (NEG-TRACE) Urine Glucose (UA) >=1000 mg/dL (NEG) Urine Ketones (Stick) 15 mg/dL (NEG) Urine Blood Trace (NEG) Urine Nitrite Negative (NEG) Urine Bilirubin Negative (NEG) Urine Urobilinogen Dipstick 0.2 mg/dL (0.2 mg/dL) Urine Leukocyte Esterase Negative (NEG) Urine RBC 6-10 /HPF (0-2) Urine WBC 5-10 /HPF (0-4) Urine Squamous Epithelial Cells Few /LPF Urine Amorphous Sediment Present /HPF Urine Bacteria 0 /HPF (0-FEW) Urine Mucus Slight /LPF Urine Opiates Screen Neg (NEG) Urine Methadone Screen Neg (NEG) Urine Barbiturates Neg (NEG) Urine Phencyclidine Screen Neg (NEG) Urine Amphetamine/Methamphetamine Neg (NEG) Urine Benzodiazepines Screen Pos (NEG) Urine Cocaine Screen Neg (NEG) Urine Cannabinoids Screen Neg (NEG) Urine Ethyl Alcohol Neg (NEG) Test 12/20/18 04:00 12/20/18 04:45 12/20/18 05:00 White Blood Count 11.8 x10^3/uL (4.0-11.0) Red Blood Count 3.68 x10^6/uL (3.50-5.40) Hemoglobin 9.4 g/dL (12.0-15.5) Hematocrit 29.3 % (36.0-47.0) Mean Corpuscular Volume 80 fL (79-100) Mean Corpuscular Hemoglobin 26 pg (25-35) Mean Corpuscular Hemoglobin Concent 32 g/dL (31-37) Red Cell Distribution Width 16.3 % (11.5-14.5) Platelet Count 196 x10^3/uL (140-400) Neutrophils (%) (Auto) 87 % (31-73) Lymphocytes (%) (Auto) 10 % (24-48) Monocytes (%) (Auto) 2 % (0-9) Eosinophils (%) (Auto) 0 % (0-3) Basophils (%) (Auto) 0 % (0-3) Neutrophils # (Auto) 10.3 x10^3uL (1.8-7.7) Lymphocytes # (Auto) 1.2 x10^3/uL (1.0-4.8) Monocytes # (Auto) 0.3 x10^3/uL (0.0-1.1) Eosinophils # (Auto) 0.0 x10^3/uL (0.0-0.7) Basophils # (Auto) 0.0 x10^3/uL (0.0-0.2) Segmented Neutrophils % 84 % (35-66) Band Neutrophils % 1 % (0-9) Lymphocytes % 12 % (24-48) Monocytes % 3 % (0-10) Platelet Estimate Adequate (ADEQUATE) Poikilocytosis Mod Crenated Cell Present Schistocytes Few Lactic Acid Level 1.8 mmol/L (0.4-2.0) Prothrombin Time 13.8 SEC (11.7-14.0) Prothromb Time International Ratio 1.1 (0.8-1.1) Heparin Anti-Xa Act, Unfractionated 0.46 IU/mL (0.30-0.70) Sodium Level 143 mmol/L (136-145) Potassium Level 3.6 mmol/L (3.5-5.1) Chloride Level 105 mmol/L (98-107) Carbon Dioxide Level 22 mmol/L (21-32) Anion Gap 16 (6-14) Blood Urea Nitrogen 22 mg/dL (7-20) Creatinine 1.8 mg/dL (0.6-1.0) Estimated GFR (Cockcroft-Gault) 33.2 BUN/Creatinine Ratio 12 (6-20) Glucose Level 338 mg/dL (70-99) Calcium Level 8.8 mg/dL (8.5-10.1) Phosphorus Level 2.5 mg/dL (2.6-4.7) Magnesium Level 3.2 mg/dL (1.8-2.4) Total Bilirubin 0.4 mg/dL (0.2-1.0) Aspartate Amino Transf (AST/SGOT) 56 U/L (15-37) Alanine Aminotransferase (ALT/SGPT) 39 U/L (14-59) Alkaline Phosphatase 73 U/L (46-116) Total Protein 6.1 g/dL (6.4-8.2) Albumin 3.0 g/dL (3.4-5.0) Albumin/Globulin Ratio 1.0 (1.0-1.7) Medications Current Medications Epinephrine HCl 8 mg/Sodium Chloride 250 ml @ 0 mls/hr CONT PRN IV SEE I/O RECORD Last administered on 12/19/18at 19:13; Start 12/19/18 at 17:45 Albuterol Sulfate (Ventolin Neb Soln) 2.5 mg STK-MED ONCE .ROUTE ; Start 12/19/18 at 18:03; Stop 12/19/18 at 18:04; Status DC Propofol 100 ml @ As Directed STK-MED ONCE IV ; Start 12/19/18 at 18:05; Stop 12/19/18 at 18:06; Status DC Lorazepam (Ativan Inj) 2 mg STK-MED ONCE .ROUTE ; Start 12/19/18 at 18:17; Stop 12/19/18 at 18:18; Status DC Propofol 100 ml @ 0 mls/hr CONT PRN IV SEE I/O RECORD; Start 12/19/18 at 18:15; Status UNV Midazolam HCl 100 ml @ 5 mls/hr CONT PRN IV SEE I/O RECORD; Start 12/19/18 at 18:15; Status UNV Fentanyl Citrate (Fentanyl 2ml Vial) 100 mcg 1X ONCE IV ; Start 12/19/18 at 18:15; Stop 12/19/18 at 18:34; Status DC Midazolam HCl (Versed) 2 mg 1X ONCE IV ; Start 12/19/18 at 18:15; Stop 12/19/18 at 18:34; Status DC Buspirone HCl (Buspar) 30 mg Q8H NG ; Start 12/19/18 at 19:00; Stop 12/21/18 at 11:01 Acetaminophen (Tylenol) 650 mg Q4H NG ; Start 12/19/18 at 19:00 Sodium Chloride 1,000 ml @ 2,000 mls/hr Q30M IV ; Start 12/19/18 at 18:15; Stop 12/19/18 at 18:54; Status DC Artificial Tears (Artificial Tears) 1 drop Q6HRS OU Last administered on 12/20/18at 06:03; Start 12/19/18 at 19:00 Artificial Tears (Artificial Tears) 1 drop PRN Q15MIN PRN OU DRY EYE; Start 12/19/18 at 18:15 Heparin Sodium (Porcine) (Heparin Sodium) 5,000 unit BID SQ ; Start 12/19/18 at 21:00; Stop 12/19/18 at 21:02; Status DC Pantoprazole Sodium (PROTONIX VIAL for IV PUSH) 40 mg DAILY IVP ; Start 12/20/18 at 09:00; Status Cancel Fentanyl Citrate 30 ml @ 2.5 mls/hr CONT PRN IV PER PROTOCOL. Last administered on 12/20/18 06:04; Start 12/19/18 at 18:15 Propofol 100 ml @ 0 mls/hr CONT PRN IV PER PROTOCOL. Last administered on 12/19/18at 19:13; Start 12/19/18 at 18:15 Midazolam HCl 100 ml @ 0 mls/hr CONT PRN IV PER PROTOCOL.; Start 12/19/18 at 18:15 Vecuronium Frontier (Norcuron Bolus) 5 mg PRN Q1HR PRN IV SHIVERING; Start 12/19/18 at 18:15 Methylprednisolone Sodium Succinate (SOLU-Medrol 125MG VIAL) 100 mg Q8HRS IV Last administered on 12/20/18 06:03; Start 12/19/18 at 22:00 Ondansetron HCl (Zofran) 4 mg PRN Q6HRS PRN IV NAUSEA/VOMITING; Start 12/19/18 at 18:30 Famotidine (Pepcid Vial) 20 mg QHS IVP Last administered on 12/19/18at 21:22; Start 12/19/18 at 21:00 Heparin Sodium (Porcine) (Heparin Sodium) 5,000 unit Q12HR SQ ; Start 12/19/18 at 21:00; Status UNV Sodium Chloride (Normal Saline Flush) 3 ml QSHIFT PRN IV AFTER MEDS AND BLOOD DRAWS; Start 12/19/18 at 18:30 Bisacodyl (Dulcolax Supp) 10 mg PRN DAILY PRN NM CONSTIPATION; Start 12/19/18 at 18:30 Methylprednisolone Sodium Succinate (SOLU-Medrol 125MG VIAL) 125 mg STK-MED ONCE .ROUTE ; Start 12/19/18 at 18:28; Stop 12/19/18 at 18:34; Status DC Methylprednisolone Sodium Succinate (SOLU-Medrol 125MG VIAL) 100 mg 1X ONCE IV Last administered on 12/19/18at 19:10; Start 12/19/18 at 18:45; Stop 12/19/18 at 18:46; Status DC Meropenem 500 mg/ Sodium Chloride 50 ml @ 100 mls/hr Q12HR IV Last administered on 12/19/18at 20:11; Start 12/19/18 at 20:00 Levofloxacin/ Dextrose 50 ml @ 50 mls/hr Q24H IV Last administered on 12/19/18at 20:11; Start 12/19/18 at 20:00 Sodium Chloride 1,560 ml @ 1,560 mls/hr Q1H IV ; Start 12/19/18 at 18:50; Stop 12/19/18 at 19:49; Status DC Sodium Chloride 500 ml @ 1,000 mls/hr PRN Q30MIN PRN IV SEE COMMENTS; Start 12/19/18 at 19:00 Norepinephrine Bitartrate 250 ml @ 0 mls/hr CONT PRN IV SEE I/O RECORD; Start 12/19/18 at 19:00 Dobutamine HCl/ Dextrose 250 ml @ 0 mls/hr CONT PRN IV SEE I/O RECORD; Start 12/19/18 at 19:00 Linezolid/Dextrose 300 ml @ 300 mls/hr Q12HR IV Last administered on 12/19/18at 21:22; Start 12/19/18 at 21:00 Lorazepam (Ativan Inj) 2 mg PRN Q4HRS PRN IV ANXIETY / AGITATION; Start 12/19/18 at 19:15 Heparin Sodium/ Dextrose 500 ml @ 0 mls/hr CONT PRN IV SEE I/O RECORD; Start 12/19/18 at 21:00; Status UNV Heparin Sodium/ Dextrose 500 ml @ 0 mls/hr CONT PRN IV SEE I/O RECORD; Start 12/19/18 at 21:00 Heparin Sodium (Porcine) (Heparin Sodium) 1,150 unit PRN Q6HRS PRN IV FOR UFH LEVEL LESS THAN 0.2; Start 12/19/18 at 21:00 Albuterol/ Ipratropium (Duoneb) 3 ml RTQID NEB Last administered on 12/20/18at 06:19; Start 12/20/18 at 08:00 Budesonide (Pulmicort) 0.5 mg RTBID NEB Last administered on 12/20/18at 06:19; Start 12/20/18 at 08:00 Budesonide (Pulmicort) 0.5 mg STK-MED ONCE NEB ; Start 12/20/18 at 06:17; Stop 12/20/18 at 06:18; Status DC Albuterol/ Ipratropium (Duoneb) 3 ml STK-MED ONCE .ROUTE ; Start 12/20/18 at 06:17; Stop 12/20/18 at 06:18; Status DC Active Scripts Active Pulmicort (Budesonide) 0.5 Mg/2 Ml Ampul.neb 1 Vial NEB BID Medrol (Methylprednisolone) 4 Mg Tab.ds.pk 1 Pkg PO UD Lisinopril 10 Mg Tablet 1 Tab PO DAILY Ventolin Hfa Inhaler (Albuterol Sulfate) 18 Gm Hfa.aer.ad 2 Puff INH Q4HRS Reported Levofloxacin 500 Mg Tablet 1 Tab PO DAILY Cyanocobalamin Injection (Cyanocobalamin (Vitamin B-12)) 1,000 Mcg/1 Ml Vial 1 Ml IM WEEKLY Vitamin D (Cholecalciferol (Vitamin D3)) 50,000 Unit Capsule 50,000 Unit PO WEEKLY Cetirizine Hcl 10 Mg Tablet 1 Tab PO DAILY NITROGLYCERIN SubLingual (Nitroglycerin) 0.4 Mg Tab.subl 0.4 Mg SL PRN Q5MIN PRN Clopidogrel (Clopidogrel Bisulfate) 75 Mg Tablet 1 Tab PO DAILY Atorvastatin Calcium 40 Mg Tablet 1 Tab PO DAILY Aspirin Ec (Aspirin) 81 Mg Tablet.dr 1 Tab PO DAILY Tylenol (Acetaminophen) 325 Mg Tablet 2 Tab PO PRN Q6HRS PRN Flonase Allergy Relief (Fluticasone Propionate) 9.9 Ml Gulliver.susp 1 Sprays NS DAILY Glipizide 10 Mg Tablet 0.05 Tab PO BID Dorzolamide Hcl 10 Ml Drops 1 Drop EACHEYE BID Latanoprost 2.5 Ml Drops 1 Drop EACHEYE QHS Vitals/I & O Vital Sign - Last 24 Hours 12/19/18 12/19/18 12/19/18 12/19/18 17:35 17:47 18:00 19:00 Temp 92.0 87.3 92.0 Pulse 61 Resp 20 B/P (MAP) 155/67 (96) Pulse Ox 100 100 O2 Delivery Ventilator Ventilator Mechanical Ventilator 12/19/18 12/19/18 12/19/18 12/19/18 19:00 19:11 19:13 20:00 Temp 87.6 Pulse 60 Resp 20 20 B/P (MAP) 169/71 (103) Pulse Ox 100 100 100 O2 Delivery Ventilator Ventilator Ventilator 12/19/18 12/19/18 12/19/18 12/19/18 20:00 20:00 21:00 21:00 Temp 89.1 Pulse 60 58 Resp 20 20 B/P (MAP) 176/81 (112) 137/67 (90) Pulse Ox 100 100 O2 Delivery Ventilator Mechanical Ventilator Ventilator 12/19/18 12/19/18 12/19/18 12/19/18 21:40 22:00 22:00 23:00 Temp 89.2 Pulse 60 54 Resp 20 20 B/P (MAP) 110/60 (77) 110/57 (74) Pulse Ox 100 100 100 O2 Delivery Ventilator Ventilator Ventilator 12/19/18 12/19/18 12/20/18 12/20/18 23:00 23:10 00:00 00:00 Temp 89.1 90.7 Pulse 52 Resp 20 B/P (MAP) 107/53 (71) Pulse Ox 100 100 O2 Delivery Ventilator Ventilator 12/20/18 12/20/18 12/20/18 12/20/18 00:00 00:41 01:00 01:00 Temp 90.5 Pulse 50 Resp 20 B/P (MAP) 101/56 (71) Pulse Ox 100 100 O2 Delivery Mechanical Ventilator Ventilator Ventilator 12/20/18 12/20/18 12/20/18 12/20/18 02:00 02:00 02:55 03:00 Temp 90.9 Pulse 49 47 Resp 20 20 B/P (MAP) 107/57 (74) 107/55 (72) Pulse Ox 100 100 100 O2 Delivery Ventilator Ventilator Ventilator 12/20/18 12/20/18 12/20/18 12/20/18 03:00 04:00 04:00 04:00 Temp 91.0 91.8 Pulse 48 Resp 20 B/P (MAP) 117/56 (76) Pulse Ox 100 O2 Delivery Mechanical Ventilator Ventilator 12/20/18 12/20/18 12/20/18 12/20/18 05:00 05:00 05:14 06:00 Temp 90.5 Pulse 49 47 Resp 20 20 B/P (MAP) 116/54 (74) 112/58 (76) Pulse Ox 100 100 100 O2 Delivery Ventilator Ventilator Ventilator 12/20/18 12/20/18 12/20/18 12/20/18 06:00 06:04 06:19 06:48 Temp 91.2 Resp 20 20 B/P (MAP) Pulse Ox 100 100 100 O2 Delivery Ventilator Ventilator Ventilator 12/20/18 12/20/18 07:00 07:00 Temp 91.5 Pulse 50 Resp 20 B/P (MAP) 112/54 (73) Pulse Ox 100 O2 Delivery Ventilator Intake and Output 12/19/18 12/19/18 12/20/18 15:00 23:00 07:00 Intake Total 49 ml 458.8 ml Output Total 500 ml 355 ml Balance -451 ml 103.8 ml DIANA LEO MD Dec 20, 2018 08:25
--- NOTE | 2018-12-20 08:26 | RAD ---
EXAM: CHEST 1 VIEW. HISTORY: Intubated, respiratory failure. COMPARISON: 12/19/2018. FINDINGS: A frontal view of the chest is obtained. An endotracheal tube has its tip 4 cm above the brittny. A nasogastric tube has its tip just below the gastroesophageal junction. There are no confluent infiltrates. There is no pneumothorax or pleural effusion. The heart is not enlarged. Coronary atherosclerotic calcifications are noted. There is gaseous distention of the colon in the upper abdomen. IMPRESSION: 1. Nasogastric tube tip just below the gastroesophageal junction. 2. No confluent infiltrates. Electronically signed by: Aimee Brizuela MD (12/20/2018 8:22 AM) [facility]
--- NOTE | 2018-12-20 08:47 | PN ---
DATE: 12/20/2018 SUBJECTIVE: The patient is a 73-year-old female patient who was admitted DICTATION ENDS HERE DI HANNAH MD DR: ZEUS/ariel JOB#: [id number] / [id number]
[2018-12-20] MEDS ORDERED: PANTOPRAZOLE IV PUSH 40 MG VIAL. IVP SCH (09:00)
[2018-12-20 09:05] LABS: BASE EXCESS ABG -6 mmol/L (-3-3); CORRECTED PCO2 ABG 40 mmHg; CORRECTED PH ABG 7.31; CORRECTED PO2 ABG 154 mmHg; HCO3 ABG 21 mmol/L (21-28); PCO2 ABG 48 mmHg (35-46); PO2 ABG 176 mmHg (65-108); SAT O2 ABG 99 % (92-99)
[2018-12-20 09:06] LABS: FIO2 ABG 40
--- NOTE | 2018-12-20 09:17 | PN ---
DATE: 12/20/2018 SUBJECTIVE: The patient is a 73-year-old -[place] female patient, who apparently was complaining of shortness of breath at home and took a breathing treatment and lost consciousness and with agonal breathing. Emergency Medical Services arrived on the scene and found her to be in bed with a pulseless electrical activity, and she had CPR. She has had apparently 2 rounds of CPR and epinephrine. She lost her pulse again. She was intubated in the scene and was transferred to [facility] and was transferred directly to [facility] ICU. Apparently, she was started on epinephrine drip for bradycardia, was started on a hypothermia protocol. She has had a CT scan done, and it showed no evidence of intracranial hemorrhage and was started on heparin drip. She was basically continued intubated, ventilated and currently on steroids, hypothermia protocol and heparin drip. She was also started on IV antibiotic, and we consulted the airframe design engineer, reimbursement consultant, infectious disease specialist, bottom cementer as well as neurologist. PHYSICAL EXAMINATION: GENERAL: When I saw her this morning, she was resting slightly propped up in bed, pale, but no jaundice, cyanosis or thyromegaly. No jugular venous distension. No lower limb edema. VITAL SIGNS: Her heart rate was 50, blood pressure 112/54, temperature was 91.5, respiratory rate 20 and oxygen saturation was 100% on FiO2 of 40%. HEAD, EYES, EARS, NOSE AND THROAT: Normocephalic, atraumatic. She has orotracheal and orogastric tube in place. NECK: Supple. HEART: Showed normal first and second heart sounds. No gallop, rub or murmur. CHEST: Shows central trachea, equal bilateral chest expansion, air entry. No crepitation or rhonchi. ABDOMEN: Scaphoid, soft, nontender. NEUROLOGIC: She does not respond to verbal or painful stimuli. She has recurrent twitching movement. Her intake was 500, output was 825. LABORATORY DATA: Her lab work this morning showed a serum sodium 143, potassium 3.6, chloride 105, bicarbonate 22, anion gap of 16, BUN 22, creatinine 1.8, estimated GFR was 83 mL per minute. Her glucose was 338. Her lactic acid came down from 2.2 to 1.8. Calcium was 8.8, phosphorus 2.5, magnesium was 3.2. Her total bilirubin, AST slightly elevated. ALT, alkaline phosphatase normal. Her total protein was 6.1, albumin 3 and procalcitonin was 0.72. Her TSH was normal. Her white cell count is down to 11,800, hemoglobin 9, hematocrit 29, MCV 80 and platelet count of 196,000. Her prothrombin time was 13.8, INR 1.1. Urinalysis was essentially unremarkable. Toxicology is positive for benzodiazepine. Her chest x-ray showed no acute pulmonary finding. Nasogastric tube within the proximal stomach with a side port in the distal esophagus, tube advancement recommended. Endotracheal tube within the mid trachea. In summary, this is a 73-year-old -[place], status post cardiac arrest, with apparently she was found by the EMS to be in pulseless electrical activity. She was resuscitated at the scene and again she had another cardiac arrest at the [facility]. She was intubated at the scene, and she is now sedated on hypothermia protocol. She has also sepsis. PAST MEDICAL HISTORY: Significant for coronary artery disease, hypertension, hyperlipidemia, chronic kidney disease, bronchitis as well as COPD. PAST SURGICAL HISTORY: Significant for PCI with stent deployment twice, one in 2012 at [facility] and the other one was in 2017 done at [facility]. FAMILY HISTORY: Positive for hypertension. SOCIAL HISTORY: She lives at home with her family. She does not smoke, drink alcohol or use any recreational drugs. ALLERGIES: SHE IS ALLERGIC TO PENICILLIN, SULFA DRUGS AND TRAMADOL. MEDICATIONS: She is currently on cetirizine 10 mg tablet once a day, albuterol sulfate 2 puffs every 4 hours, Plavix 75 mg once a day, atorvastatin 40 mg at bedtime, nitroglycerin 0.4 mg sublingually every 5 minutes, lisinopril 10 mg once a day, aspirin 81 mg once a day, Tylenol 650 mg every 6 hours. She is on Flonase 1 spray to each nostril twice a day and Pulmicort 0.5 mg 3 mL by nebulizer twice a day. She is on dorzolamide 1 drop to both eyes twice a day, latanoprost 1 drop to both eyes at bedtime. She is on glipizide 10 mg half a tablet twice a day, cyanocobalamin 1000 mcg once a day. Vitamin D, cholecalciferol 50,000 units once a week. Plan is obviously to continue with mechanical ventilation and hypothermia protocol. Continue with all her other steroids, antibiotics and heparin drip together with IV antibiotic. DI HANNAH MD DR: ZEUS/ariel JOB#: [id number] / [id number]
[2018-12-20] MEDS: ASPIRIN CHEWABLE 81 MG TABLET. PO SCH (09:46)
[2018-12-20] MEDS: PRASUGREL 10 MG TABLET. PO SCH (09:47)
[2018-12-20] MEDS: MEROPENEM 500 MG in IV NORMAL SALINE 50ML 50 ML IV SCH ×2 (09:47→21:13)
--- NOTE | 2018-12-20 09:48 | PDOC ---
PULMONARY PROGRESS NOTES Vitals Vital Signs Date Time Temp Pulse Resp B/P (MAP) Pulse Ox O2 Delivery O2 Flow Rate FiO2 12/20/18 09:00 91.5 12/20/18 09:00 55 20 100 Ventilator General: Alert, No acute distress HEENT: Other Lungs: Clear, Other Cardiovascular: S1 Abdomen: Soft Extremities: No Edema Labs Laboratory Tests Test 12/19/18 18:50 12/19/18 19:20 12/19/18 23:10 12/20/18 00:10 White Blood Count 16.6 x10^3/uL (4.0-11.0) Red Blood Count 3.91 x10^6/uL (3.50-5.40) Hemoglobin 10.0 g/dL (12.0-15.5) Hematocrit 31.1 % (36.0-47.0) Mean Corpuscular Volume 79 fL (79-100) Mean Corpuscular Hemoglobin 26 pg (25-35) Mean Corpuscular Hemoglobin Concent 32 g/dL (31-37) Red Cell Distribution Width 15.9 % (11.5-14.5) Platelet Count 278 x10^3/uL (140-400) Neutrophils (%) (Auto) 71 % (31-73) Lymphocytes (%) (Auto) 15 % (24-48) Monocytes (%) (Auto) 10 % (0-9) Eosinophils (%) (Auto) 4 % (0-3) Basophils (%) (Auto) 1 % (0-3) Neutrophils # (Auto) 11.7 x10^3uL (1.8-7.7) Lymphocytes # (Auto) 2.5 x10^3/uL (1.0-4.8) Monocytes # (Auto) 1.7 x10^3/uL (0.0-1.1) Eosinophils # (Auto) 0.7 x10^3/uL (0.0-0.7) Basophils # (Auto) 0.1 x10^3/uL (0.0-0.2) Prothrombin Time 14.2 SEC (11.7-14.0) Prothromb Time International Ratio 1.1 (0.8-1.1) Activated Partial Thromboplast Time > 150 SEC (24-38) Heparin Anti-Xa Act, Unfractionated 0.82 IU/mL (0.30-0.70) Sodium Level 143 mmol/L (136-145) Potassium Level 4.1 mmol/L (3.5-5.1) Chloride Level 106 mmol/L (98-107) Carbon Dioxide Level 23 mmol/L (21-32) Anion Gap 14 (6-14) Blood Urea Nitrogen 17 mg/dL (7-20) Creatinine 1.8 mg/dL (0.6-1.0) Estimated GFR (Cockcroft-Gault) 33.2 BUN/Creatinine Ratio 9 (6-20) Glucose Level 255 mg/dL (70-99) Lactic Acid Level 2.3 mmol/L (0.4-2.0) 2.2 mmol/L (0.4-2.0) Calcium Level 9.0 mg/dL (8.5-10.1) Total Bilirubin 0.3 mg/dL (0.2-1.0) Aspartate Amino Transf (AST/SGOT) 65 U/L (15-37) Alanine Aminotransferase (ALT/SGPT) 45 U/L (14-59) Alkaline Phosphatase 87 U/L (46-116) Troponin I Quantitative 0.085 ng/mL (0.000-0.055) Total Protein 6.6 g/dL (6.4-8.2) Albumin 3.6 g/dL (3.4-5.0) Albumin/Globulin Ratio 1.2 (1.0-1.7) Procalcitonin 0.72 ng/mL (0.00-0.10) Thyroid Stimulating Hormone (TSH) 2.094 uIU/mL (0.358-3.74) O2 Saturation 99 % (92-99) Arterial Blood pH 7.40 (7.35-7.45) Arterial Blood pH (Temp corrected) 7.45 Arterial Blood pCO2 at Patient Temp 40 mmHg (35-46) Arterial Blood pCO2 (Temp correct) 34 mmHg Arterial Blood pO2 at Patient Temp 150 mmHg (65-108) Arterial Blood pO2 (Temp corrected) 129 mmHg Arterial Blood HCO3 24 mmol/L (21-28) Arterial Blood Base Excess -1 mmol/L (-3-3) FiO2 40 Urine Collection Type Unknown Urine Color Yellow Urine Clarity Clear Urine pH 7.0 Urine Specific [place] 1.015 Urine Protein 100 mg/dL (NEG-TRACE) Urine Glucose (UA) >=1000 mg/dL (NEG) Urine Ketones (Stick) 15 mg/dL (NEG) Urine Blood Trace (NEG) Urine Nitrite Negative (NEG) Urine Bilirubin Negative (NEG) Urine Urobilinogen Dipstick 0.2 mg/dL (0.2 mg/dL) Urine Leukocyte Esterase Negative (NEG) Urine RBC 6-10 /HPF (0-2) Urine WBC 5-10 /HPF (0-4) Urine Squamous Epithelial Cells Few /LPF Urine Amorphous Sediment Present /HPF Urine Bacteria 0 /HPF (0-FEW) Urine Mucus Slight /LPF Urine Opiates Screen Neg (NEG) Urine Methadone Screen Neg (NEG) Urine Barbiturates Neg (NEG) Urine Phencyclidine Screen Neg (NEG) Urine Amphetamine/Methamphetamine Neg (NEG) Urine Benzodiazepines Screen Pos (NEG) Urine Cocaine Screen Neg (NEG) Urine Cannabinoids Screen Neg (NEG) Urine Ethyl Alcohol Neg (NEG) Test 12/20/18 04:00 12/20/18 04:45 12/20/18 05:00 12/20/18 08:00 White Blood Count 11.8 x10^3/uL (4.0-11.0) Red Blood Count 3.68 x10^6/uL (3.50-5.40) Hemoglobin 9.4 g/dL (12.0-15.5) Hematocrit 29.3 % (36.0-47.0) Mean Corpuscular Volume 80 fL (79-100) Mean Corpuscular Hemoglobin 26 pg (25-35) Mean Corpuscular Hemoglobin Concent 32 g/dL (31-37) Red Cell Distribution Width 16.3 % (11.5-14.5) Platelet Count 196 x10^3/uL (140-400) Neutrophils (%) (Auto) 87 % (31-73) Lymphocytes (%) (Auto) 10 % (24-48) Monocytes (%) (Auto) 2 % (0-9) Eosinophils (%) (Auto) 0 % (0-3) Basophils (%) (Auto) 0 % (0-3) Neutrophils # (Auto) 10.3 x10^3uL (1.8-7.7) Lymphocytes # (Auto) 1.2 x10^3/uL (1.0-4.8) Monocytes # (Auto) 0.3 x10^3/uL (0.0-1.1) Eosinophils # (Auto) 0.0 x10^3/uL (0.0-0.7) Basophils # (Auto) 0.0 x10^3/uL (0.0-0.2) Segmented Neutrophils % 84 % (35-66) Band Neutrophils % 1 % (0-9) Lymphocytes % 12 % (24-48) Monocytes % 3 % (0-10) Platelet Estimate Adequate (ADEQUATE) Poikilocytosis Mod Crenated Cell Present Schistocytes Few Lactic Acid Level 1.8 mmol/L (0.4-2.0) Prothrombin Time 13.8 SEC (11.7-14.0) Prothromb Time International Ratio 1.1 (0.8-1.1) Heparin Anti-Xa Act, Unfractionated 0.46 IU/mL (0.30-0.70) Sodium Level 143 mmol/L (136-145) Potassium Level 3.6 mmol/L (3.5-5.1) Chloride Level 105 mmol/L (98-107) Carbon Dioxide Level 22 mmol/L (21-32) Anion Gap 16 (6-14) Blood Urea Nitrogen 22 mg/dL (7-20) Creatinine 1.8 mg/dL (0.6-1.0) Estimated GFR (Cockcroft-Gault) 33.2 BUN/Creatinine Ratio 12 (6-20) Glucose Level 338 mg/dL (70-99) Calcium Level 8.8 mg/dL (8.5-10.1) Phosphorus Level 2.5 mg/dL (2.6-4.7) Magnesium Level 3.2 mg/dL (1.8-2.4) Total Bilirubin 0.4 mg/dL (0.2-1.0) Aspartate Amino Transf (AST/SGOT) 56 U/L (15-37) Alanine Aminotransferase (ALT/SGPT) 39 U/L (14-59) Alkaline Phosphatase 73 U/L (46-116) Total Protein 6.1 g/dL (6.4-8.2) Albumin 3.0 g/dL (3.4-5.0) Albumin/Globulin Ratio 1.0 (1.0-1.7) O2 Saturation 99 % (92-99) Arterial Blood pH 7.26 (7.35-7.45) Arterial Blood pH (Temp corrected) 7.31 Arterial Blood pCO2 at Patient Temp 48 mmHg (35-46) Arterial Blood pCO2 (Temp correct) 40 mmHg Arterial Blood pO2 at Patient Temp 176 mmHg (65-108) Arterial Blood pO2 (Temp corrected) 154 mmHg Arterial Blood HCO3 21 mmol/L (21-28) Arterial Blood Base Excess -6 mmol/L (-3-3) FiO2 40 Laboratory Tests Test 12/19/18 18:50 12/19/18 19:20 12/19/18 23:10 12/20/18 00:10 White Blood Count 16.6 x10^3/uL (4.0-11.0) Red Blood Count 3.91 x10^6/uL (3.50-5.40) Hemoglobin 10.0 g/dL (12.0-15.5) Hematocrit 31.1 % (36.0-47.0) Mean Corpuscular Volume 79 fL (79-100) Mean Corpuscular Hemoglobin 26 pg (25-35) Mean Corpuscular Hemoglobin Concent 32 g/dL (31-37) Red Cell Distribution Width 15.9 % (11.5-14.5) Platelet Count 278 x10^3/uL (140-400) Neutrophils (%) (Auto) 71 % (31-73) Lymphocytes (%) (Auto) 15 % (24-48) Monocytes (%) (Auto) 10 % (0-9) Eosinophils (%) (Auto) 4 % (0-3) Basophils (%) (Auto) 1 % (0-3) Neutrophils # (Auto) 11.7 x10^3uL (1.8-7.7) Lymphocytes # (Auto) 2.5 x10^3/uL (1.0-4.8) Monocytes # (Auto) 1.7 x10^3/uL (0.0-1.1) Eosinophils # (Auto) 0.7 x10^3/uL (0.0-0.7) Basophils # (Auto) 0.1 x10^3/uL (0.0-0.2) Prothrombin Time 14.2 SEC (11.7-14.0) Prothromb Time International Ratio 1.1 (0.8-1.1) Activated Partial Thromboplast Time > 150 SEC (24-38) Heparin Anti-Xa Act, Unfractionated 0.82 IU/mL (0.30-0.70) Sodium Level 143 mmol/L (136-145) Potassium Level 4.1 mmol/L (3.5-5.1) Chloride Level 106 mmol/L (98-107) Carbon Dioxide Level 23 mmol/L (21-32) Anion Gap 14 (6-14) Blood Urea Nitrogen 17 mg/dL (7-20) Creatinine 1.8 mg/dL (0.6-1.0) Estimated GFR (Cockcroft-Gault) 33.2 BUN/Creatinine Ratio 9 (6-20) Glucose Level 255 mg/dL (70-99) Lactic Acid Level 2.3 mmol/L (0.4-2.0) 2.2 mmol/L (0.4-2.0) Calcium Level 9.0 mg/dL (8.5-10.1) Total Bilirubin 0.3 mg/dL (0.2-1.0) Aspartate Amino Transf (AST/SGOT) 65 U/L (15-37) Alanine Aminotransferase (ALT/SGPT) 45 U/L (14-59) Alkaline Phosphatase 87 U/L (46-116) Troponin I Quantitative 0.085 ng/mL (0.000-0.055) Total Protein 6.6 g/dL (6.4-8.2) Albumin 3.6 g/dL (3.4-5.0) Albumin/Globulin Ratio 1.2 (1.0-1.7) Procalcitonin 0.72 ng/mL (0.00-0.10) Thyroid Stimulating Hormone (TSH) 2.094 uIU/mL (0.358-3.74) O2 Saturation 99 % (92-99) Arterial Blood pH 7.40 (7.35-7.45) Arterial Blood pH (Temp corrected) 7.45 Arterial Blood pCO2 at Patient Temp 40 mmHg (35-46) Arterial Blood pCO2 (Temp correct) 34 mmHg Arterial Blood pO2 at Patient Temp 150 mmHg (65-108) Arterial Blood pO2 (Temp corrected) 129 mmHg Arterial Blood HCO3 24 mmol/L (21-28) Arterial Blood Base Excess -1 mmol/L (-3-3) FiO2 40 Urine Collection Type Unknown Urine Color Yellow Urine Clarity Clear Urine pH 7.0 Urine Specific [place] 1.015 Urine Protein 100 mg/dL (NEG-TRACE) Urine Glucose (UA) >=1000 mg/dL (NEG) Urine Ketones (Stick) 15 mg/dL (NEG) Urine Blood Trace (NEG) Urine Nitrite Negative (NEG) Urine Bilirubin Negative (NEG) Urine Urobilinogen Dipstick 0.2 mg/dL (0.2 mg/dL) Urine Leukocyte Esterase Negative (NEG) Urine RBC 6-10 /HPF (0-2) Urine WBC 5-10 /HPF (0-4) Urine Squamous Epithelial Cells Few /LPF Urine Amorphous Sediment Present /HPF Urine Bacteria 0 /HPF (0-FEW) Urine Mucus Slight /LPF Urine Opiates Screen Neg (NEG) Urine Methadone Screen Neg (NEG) Urine Barbiturates Neg (NEG) Urine Phencyclidine Screen Neg (NEG) Urine Amphetamine/Methamphetamine Neg (NEG) Urine Benzodiazepines Screen Pos (NEG) Urine Cocaine Screen Neg (NEG) Urine Cannabinoids Screen Neg (NEG) Urine Ethyl Alcohol Neg (NEG) Test 12/20/18 04:00 12/20/18 04:45 12/20/18 05:00 12/20/18 08:00 White Blood Count 11.8 x10^3/uL (4.0-11.0) Red Blood Count 3.68 x10^6/uL (3.50-5.40) Hemoglobin 9.4 g/dL (12.0-15.5) Hematocrit 29.3 % (36.0-47.0) Mean Corpuscular Volume 80 fL (79-100) Mean Corpuscular Hemoglobin 26 pg (25-35) Mean Corpuscular Hemoglobin Concent 32 g/dL (31-37) Red Cell Distribution Width 16.3 % (11.5-14.5) Platelet Count 196 x10^3/uL (140-400) Neutrophils (%) (Auto) 87 % (31-73) Lymphocytes (%) (Auto) 10 % (24-48) Monocytes (%) (Auto) 2 % (0-9) Eosinophils (%) (Auto) 0 % (0-3) Basophils (%) (Auto) 0 % (0-3) Neutrophils # (Auto) 10.3 x10^3uL (1.8-7.7) Lymphocytes # (Auto) 1.2 x10^3/uL (1.0-4.8) Monocytes # (Auto) 0.3 x10^3/uL (0.0-1.1) Eosinophils # (Auto) 0.0 x10^3/uL (0.0-0.7) Basophils # (Auto) 0.0 x10^3/uL (0.0-0.2) Segmented Neutrophils % 84 % (35-66) Band Neutrophils % 1 % (0-9) Lymphocytes % 12 % (24-48) Monocytes % 3 % (0-10) Platelet Estimate Adequate (ADEQUATE) Poikilocytosis Mod Crenated Cell Present Schistocytes Few Lactic Acid Level 1.8 mmol/L (0.4-2.0) Prothrombin Time 13.8 SEC (11.7-14.0) Prothromb Time International Ratio 1.1 (0.8-1.1) Heparin Anti-Xa Act, Unfractionated 0.46 IU/mL (0.30-0.70) Sodium Level 143 mmol/L (136-145) Potassium Level 3.6 mmol/L (3.5-5.1) Chloride Level 105 mmol/L (98-107) Carbon Dioxide Level 22 mmol/L (21-32) Anion Gap 16 (6-14) Blood Urea Nitrogen 22 mg/dL (7-20) Creatinine 1.8 mg/dL (0.6-1.0) Estimated GFR (Cockcroft-Gault) 33.2 BUN/Creatinine Ratio 12 (6-20) Glucose Level 338 mg/dL (70-99) Calcium Level 8.8 mg/dL (8.5-10.1) Phosphorus Level 2.5 mg/dL (2.6-4.7) Magnesium Level 3.2 mg/dL (1.8-2.4) Total Bilirubin 0.4 mg/dL (0.2-1.0) Aspartate Amino Transf (AST/SGOT) 56 U/L (15-37) Alanine Aminotransferase (ALT/SGPT) 39 U/L (14-59) Alkaline Phosphatase 73 U/L (46-116) Total Protein 6.1 g/dL (6.4-8.2) Albumin 3.0 g/dL (3.4-5.0) Albumin/Globulin Ratio 1.0 (1.0-1.7) O2 Saturation 99 % (92-99) Arterial Blood pH 7.26 (7.35-7.45) Arterial Blood pH (Temp corrected) 7.31 Arterial Blood pCO2 at Patient Temp 48 mmHg (35-46) Arterial Blood pCO2 (Temp correct) 40 mmHg Arterial Blood pO2 at Patient Temp 176 mmHg (65-108) Arterial Blood pO2 (Temp corrected) 154 mmHg Arterial Blood HCO3 21 mmol/L (21-28) Arterial Blood Base Excess -6 mmol/L (-3-3) FiO2 40 Medications Active Scripts Medications Dose Route/Sig Max Daily Dose Days Date Category Levofloxacin 500 Mg Tablet 1 Tab PO DAILY 12/02/18 Reported Cyanocobalamin Injection (Cyanocobalamin (Vitamin B-12)) 1,000 Mcg/1 Ml Vial 1 Ml IM WEEKLY 12/02/18 Reported Pulmicort (Budesonide) 0.5 Mg/2 Ml Ampul.neb 1 Vial NEB BID 03/26/17 Rx Medrol (Methylprednisolone) 4 Mg Tab.ds.pk 1 Pkg PO UD 03/26/17 Rx Lisinopril 10 Mg Tablet 1 Tab PO DAILY 03/26/17 Rx Vitamin D (Cholecalciferol (Vitamin D3)) 50,000 Unit Capsule 50,000 Unit PO WEEKLY 03/25/17 Reported Cetirizine Hcl 10 Mg Tablet 1 Tab PO DAILY 03/25/17 Reported NITROGLYCERIN SubLingual (Nitroglycerin) 0.4 Mg Tab.subl 0.4 Mg SL PRN Q5MIN PRN 03/25/17 Reported Clopidogrel (Clopidogrel Bisulfate) 75 Mg Tablet 1 Tab PO DAILY 03/08/17 Reported Atorvastatin Calcium 40 Mg Tablet 1 Tab PO DAILY 03/08/17 Reported Aspirin Ec (Aspirin) 81 Mg Tablet.dr 1 Tab PO DAILY 03/08/17 Reported Tylenol (Acetaminophen) 325 Mg Tablet 2 Tab PO PRN Q6HRS PRN 03/08/17 Reported Ventolin Hfa Inhaler (Albuterol Sulfate) 18 Gm Hfa.aer.ad 2 Puff INH Q4HRS 12/12/16 Rx Flonase Allergy Relief (Fluticasone Propionate) 9.9 Ml [place].susp 1 Sprays NS DAILY 12/09/16 Reported Glipizide 10 Mg Tablet 0.05 Tab PO BID 12/09/16 Reported Dorzolamide Hcl 10 Ml Drops 1 Drop EACHEYE BID 12/09/16 Reported Latanoprost 2.5 Ml Drops 1 Drop EACHEYE QHS 12/09/16 Reported Impression . CONSULT DICTATED OUT OF HOSPITAL ARREST SUSPECT PULMONARY N NATURE. ..HAD A CHANGE TO TALK TO AFTER MY DICTATION WIIL TREAT FOR EMPIRIC ANTI BS DOUBT SEPSIS WILL DE ESCALATE ANTI BX SOON D/W DR CLEMENT NEED A CT ANGIO BUT HER CREATINE IS ELEVATED WILL CONTINUE HEPARIN FOR NOW VENOUS DOPPLER POSSIBLE V/Q SCAN ONCE STABLE ARTURO DANIEL MD Dec 20, 2018 09:48
--- NOTE | 2018-12-20 09:55 | RAD ---
EXAM: RENAL/RETROPERITONEAL ULTRASOUND. HISTORY: Renal failure. COMPARISON: None. FINDINGS: Ultrasound of the kidneys, bladder and retroperitoneum was performed. The right kidney measures 9.6 cm. Cortical echogenicity is increased. Cortical thickness is preserved. There is no hydronephrosis. The left kidney measures at least 8.7 cm. Cortical echogenicity is increased. Cortical thickness appears preserved. There is no hydronephrosis. The bladder is mostly decompressed. There is no gross sonographically abnormality. IMPRESSION: 1. Bilaterally increased cortical echogenicity is consistent with intrinsic renal disease. The left kidney measures slightly small consistent with mild atrophy. No hydronephrosis. Electronically signed by: Aimee Brizuela MD (12/20/2018 9:52 AM) [facility]
--- NOTE | 2018-12-20 10:08 | CONS ---
DATE OF CONSULTATION: 12/20/2018 REASON FOR CONSULTATION: Cardiac arrest. HISTORY OF PRESENT ILLNESS: The patient is a pleasant 73-year-old woman who is well known to our service, who was actually was recently admitted to the hospital in 11/2018 and underwent PCI to the LAD. Her history dates back several years when in 2017 she underwent multivessel PCI to her LAD and RCA by Dr. Chavez. She apparently was in her usual state of health up until November of this year when she presented with a non-ST elevation IN. Repeat cardiac angiography demonstrated in-stent restenosis of her LAD and she underwent angioplasty successfully. She was discharged in stable condition, but was noted to have ischemic cardiomyopathy with ejection fraction of 25%-30%. History is unclear since her discharge, but it appears that she had some mental status changes while at home and ultimately upon arrival to the outside facility, she was noted to have significant T-wave inversions across the precordium and I spoke with the outside hospital physician and after discussion, it was felt that she was not having an ST elevation myocardial infarction and this was more likely respiratory failure of unclear etiology. At the outside facility, she apparently had a CT scan of the chest and CT pulmonary angiogram to rule out any emboli and both of these studies were negative. Her initial troponin upon arrival to our hospital was 0.085. Repeat EKG at our institution revealed diffuse anterolateral T-wave inversions, consistent with her ischemic cardiomyopathy without any acute new ischemic changes. Presently, the patient is sedated and on the hypothermia protocol and therefore, the history is limited and the family is not at bedside at this present time. PAST MEDICAL HISTORY: 1. Coronary artery disease, status post multivessel stenting as noted above. 2. Hypertension. 3. Dyslipidemia. 4. Chronic kidney disease with a baseline creatinine of 1.8. 5. History of COPD, unclear baseline. SOCIAL HISTORY: Not able to be obtained at this time, but based on previous evaluations, she quit smoking remotely. She does not consume any significant alcohol and she lives with her family. ALLERGIES: PENICILLIN, SULFA and TRAMADOL. CURRENT CARDIOVASCULAR MEDICATIONS: 1. Aspirin. 2. Prasugrel 10 mg daily. 3. Currently on a heparin drip. REVIEW OF SYSTEMS: Not able to be obtained due to the patient's current mentation. PHYSICAL EXAMINATION: VITAL SIGNS: Temp 91.5 on the hypothermia protocol, pulse 55, respirations 20, BP 132/55,100% on ventilator. Last ABG, 7.31/48/176 on 40% FiO2. GENERAL: She is sedated and nonresponsive. HEAD AND NECK: Unremarkable. CARDIAC: Regular rate and rhythm without any obvious murmurs, rubs or gallops. LUNGS: With diffuse bilateral wheezing. ABDOMEN: Soft, nontender, nondistended. EXTREMITIES: No obvious cyanosis or edema. Her distal pulses are diminished, essentially nonpalpable in the legs and 1+ in her wrists. NEUROLOGIC: No obvious focal deficits, but again she is sedated on the hypothermic protocol. DIAGNOSTIC STUDIES: White blood cell count initially elevated 16.6, now down trending; hemoglobin 9.4; creatinine 1.8; initial troponin of 0.085, which is down trending since her peak of approximately 3.3 about a month ago. A chest x-ray does not demonstrate any acute edema and there is hyperinflation of her lung parenchyma. Cardiac catheterization on 11/30/2018 revealed an ejection fraction of 25% with 2-vessel coronary artery disease and severe ISR which was dilated with a 3.0 x 8 mm noncompliant balloon at 18 atmospheres. This was confirmed with intravascular ultrasound. EKG today demonstrates sinus rhythm with diffuse anterior T-wave inversions, unchanged from her discharge 3 weeks ago. Echocardiogram demonstrated ejection fraction of 35%-40% with moderate hypokinesis involving the distal two-thirds of the left ventricle suggestive of previous LAD territory infarct. IMPRESSION: 1. Acute respiratory failure: Differential diagnosis is broad, but main issues including acute myocardial infarction and pulmonary embolism have been ruled out. I suspect some underlying chronic obstructive pulmonary disease given her significant wheezing on examination that may have led to her mental status changes and acute respiratory failure. At this present time, she also does not appear to be in acute heart failure based on her examination findings. 2. Coronary artery disease with percutaneous coronary intervention as noted above. 3. Hypertension, currently well controlled. 4. Dyslipidemia. 5. Chronic kidney disease, stable. RECOMMENDATIONS: 1. We will repeat a troponin and if it is minimally elevated, then most likely we can stop her heparin and continue her aspirin and Effient therapy for her recent angioplasty. 2. Aggressive pulmonary resuscitation with steroids and DuoNebs as tolerated. Pulmonary consultation pending. 3. We will await input from the family regarding any other acute issues. Thank you for this consultation. CYNTHIA CLEMENT MD DR: FLYNN/ariel JOB#: [id number] / [id number]
--- NOTE | 2018-12-20 10:51 | PDOC ---
Provider Note Provider Note Unclear if CT angio done at OSH Case discussed with pulmonary continue hep gtt until definite r/o of P.E. Supportive care from CV standpoint. Thanks. CYNTHIA CLEMENT MD Dec 20, 2018 10:51
[2018-12-20 11:29] LABS: MAGNESIUM 3.2 mg/dL (1.8-2.4)
[2018-12-20] MEDS: POTASSIUM PHOSPHATE DIBASIC 13.6 MMOL in IV NORMAL SALINE 100ML 100 ML IV SCH ×3 (12:00→14:00)
--- NOTE | 2018-12-20 12:10 | PDOC ---
Infectious Disease Note Vital Sign Vital Signs Vital Signs Date Time Temp Pulse Resp B/P (MAP) Pulse Ox O2 Delivery O2 Flow Rate FiO2 12/20/18 10:18 100 Ventilator 12/20/18 10:00 56 26 155/57 (89) 12/20/18 10:00 91.7 Labs Lab Laboratory Tests Test 12/19/18 18:50 12/19/18 19:20 12/19/18 23:10 12/20/18 00:10 White Blood Count 16.6 x10^3/uL (4.0-11.0) Red Blood Count 3.91 x10^6/uL (3.50-5.40) Hemoglobin 10.0 g/dL (12.0-15.5) Hematocrit 31.1 % (36.0-47.0) Mean Corpuscular Volume 79 fL (79-100) Mean Corpuscular Hemoglobin 26 pg (25-35) Mean Corpuscular Hemoglobin Concent 32 g/dL (31-37) Red Cell Distribution Width 15.9 % (11.5-14.5) Platelet Count 278 x10^3/uL (140-400) Neutrophils (%) (Auto) 71 % (31-73) Lymphocytes (%) (Auto) 15 % (24-48) Monocytes (%) (Auto) 10 % (0-9) Eosinophils (%) (Auto) 4 % (0-3) Basophils (%) (Auto) 1 % (0-3) Neutrophils # (Auto) 11.7 x10^3uL (1.8-7.7) Lymphocytes # (Auto) 2.5 x10^3/uL (1.0-4.8) Monocytes # (Auto) 1.7 x10^3/uL (0.0-1.1) Eosinophils # (Auto) 0.7 x10^3/uL (0.0-0.7) Basophils # (Auto) 0.1 x10^3/uL (0.0-0.2) Prothrombin Time 14.2 SEC (11.7-14.0) Prothromb Time International Ratio 1.1 (0.8-1.1) Activated Partial Thromboplast Time > 150 SEC (24-38) Heparin Anti-Xa Act, Unfractionated 0.82 IU/mL (0.30-0.70) Sodium Level 143 mmol/L (136-145) Potassium Level 4.1 mmol/L (3.5-5.1) Chloride Level 106 mmol/L (98-107) Carbon Dioxide Level 23 mmol/L (21-32) Anion Gap 14 (6-14) Blood Urea Nitrogen 17 mg/dL (7-20) Creatinine 1.8 mg/dL (0.6-1.0) Estimated GFR (Cockcroft-Gault) 33.2 BUN/Creatinine Ratio 9 (6-20) Glucose Level 255 mg/dL (70-99) Lactic Acid Level 2.3 mmol/L (0.4-2.0) 2.2 mmol/L (0.4-2.0) Calcium Level 9.0 mg/dL (8.5-10.1) Total Bilirubin 0.3 mg/dL (0.2-1.0) Aspartate Amino Transf (AST/SGOT) 65 U/L (15-37) Alanine Aminotransferase (ALT/SGPT) 45 U/L (14-59) Alkaline Phosphatase 87 U/L (46-116) Troponin I Quantitative 0.085 ng/mL (0.000-0.055) Total Protein 6.6 g/dL (6.4-8.2) Albumin 3.6 g/dL (3.4-5.0) Albumin/Globulin Ratio 1.2 (1.0-1.7) Procalcitonin 0.72 ng/mL (0.00-0.10) Thyroid Stimulating Hormone (TSH) 2.094 uIU/mL (0.358-3.74) O2 Saturation 99 % (92-99) Arterial Blood pH 7.40 (7.35-7.45) Arterial Blood pH (Temp corrected) 7.45 Arterial Blood pCO2 at Patient Temp 40 mmHg (35-46) Arterial Blood pCO2 (Temp correct) 34 mmHg Arterial Blood pO2 at Patient Temp 150 mmHg (65-108) Arterial Blood pO2 (Temp corrected) 129 mmHg Arterial Blood HCO3 24 mmol/L (21-28) Arterial Blood Base Excess -1 mmol/L (-3-3) FiO2 40 Urine Collection Type Unknown Urine Color Yellow Urine Clarity Clear Urine pH 7.0 Urine Specific [place] 1.015 Urine Protein 100 mg/dL (NEG-TRACE) Urine Glucose (UA) >=1000 mg/dL (NEG) Urine Ketones (Stick) 15 mg/dL (NEG) Urine Blood Trace (NEG) Urine Nitrite Negative (NEG) Urine Bilirubin Negative (NEG) Urine Urobilinogen Dipstick 0.2 mg/dL (0.2 mg/dL) Urine Leukocyte Esterase Negative (NEG) Urine RBC 6-10 /HPF (0-2) Urine WBC 5-10 /HPF (0-4) Urine Squamous Epithelial Cells Few /LPF Urine Amorphous Sediment Present /HPF Urine Bacteria 0 /HPF (0-FEW) Urine Mucus Slight /LPF Urine Opiates Screen Neg (NEG) Urine Methadone Screen Neg (NEG) Urine Barbiturates Neg (NEG) Urine Phencyclidine Screen Neg (NEG) Urine Amphetamine/Methamphetamine Neg (NEG) Urine Benzodiazepines Screen Pos (NEG) Urine Cocaine Screen Neg (NEG) Urine Cannabinoids Screen Neg (NEG) Urine Ethyl Alcohol Neg (NEG) Test 12/20/18 04:00 12/20/18 04:34 12/20/18 04:45 12/20/18 05:00 White Blood Count 11.8 x10^3/uL (4.0-11.0) Red Blood Count 3.68 x10^6/uL (3.50-5.40) Hemoglobin 9.4 g/dL (12.0-15.5) Hematocrit 29.3 % (36.0-47.0) Mean Corpuscular Volume 80 fL (79-100) Mean Corpuscular Hemoglobin 26 pg (25-35) Mean Corpuscular Hemoglobin Concent 32 g/dL (31-37) Red Cell Distribution Width 16.3 % (11.5-14.5) Platelet Count 196 x10^3/uL (140-400) Neutrophils (%) (Auto) 87 % (31-73) Lymphocytes (%) (Auto) 10 % (24-48) Monocytes (%) (Auto) 2 % (0-9) Eosinophils (%) (Auto) 0 % (0-3) Basophils (%) (Auto) 0 % (0-3) Neutrophils # (Auto) 10.3 x10^3uL (1.8-7.7) Lymphocytes # (Auto) 1.2 x10^3/uL (1.0-4.8) Monocytes # (Auto) 0.3 x10^3/uL (0.0-1.1) Eosinophils # (Auto) 0.0 x10^3/uL (0.0-0.7) Basophils # (Auto) 0.0 x10^3/uL (0.0-0.2) Segmented Neutrophils % 84 % (35-66) Band Neutrophils % 1 % (0-9) Lymphocytes % 12 % (24-48) Monocytes % 3 % (0-10) Platelet Estimate Adequate (ADEQUATE) Poikilocytosis Mod Crenated Cell Present Schistocytes Few Lactic Acid Level 1.8 mmol/L (0.4-2.0) Troponin I Quantitative 0.123 ng/mL (0.000-0.055) Prothrombin Time 13.8 SEC (11.7-14.0) Prothromb Time International Ratio 1.1 (0.8-1.1) Heparin Anti-Xa Act, Unfractionated 0.46 IU/mL (0.30-0.70) Sodium Level 143 mmol/L (136-145) Potassium Level 3.6 mmol/L (3.5-5.1) Chloride Level 105 mmol/L (98-107) Carbon Dioxide Level 22 mmol/L (21-32) Anion Gap 16 (6-14) Blood Urea Nitrogen 22 mg/dL (7-20) Creatinine 1.8 mg/dL (0.6-1.0) Estimated GFR (Cockcroft-Gault) 33.2 BUN/Creatinine Ratio 12 (6-20) Glucose Level 338 mg/dL (70-99) Calcium Level 8.8 mg/dL (8.5-10.1) Phosphorus Level 2.5 mg/dL (2.6-4.7) Magnesium Level 3.2 mg/dL (1.8-2.4) Total Bilirubin 0.4 mg/dL (0.2-1.0) Aspartate Amino Transf (AST/SGOT) 56 U/L (15-37) Alanine Aminotransferase (ALT/SGPT) 39 U/L (14-59) Alkaline Phosphatase 73 U/L (46-116) Total Protein 6.1 g/dL (6.4-8.2) Albumin 3.0 g/dL (3.4-5.0) Albumin/Globulin Ratio 1.0 (1.0-1.7) Test 12/20/18 08:00 O2 Saturation 99 % (92-99) Arterial Blood pH 7.26 (7.35-7.45) Arterial Blood pH (Temp corrected) 7.31 Arterial Blood pCO2 at Patient Temp 48 mmHg (35-46) Arterial Blood pCO2 (Temp correct) 40 mmHg Arterial Blood pO2 at Patient Temp 176 mmHg (65-108) Arterial Blood pO2 (Temp corrected) 154 mmHg Arterial Blood HCO3 21 mmol/L (21-28) Arterial Blood Base Excess -6 mmol/L (-3-3) FiO2 40 Objective Assessment s/p outside code blue Induced hypothermia Leukocytosis PCN and sulfa allergy Acute respiratory failure Seizure-like activity Lactic acidosis, resolved CAD s/p PTCA on 11/30 CKD Diabetes Plan Plan of Care Continue abx coverage empirically for aspiration No need for Zyvox or Levaquin f/u BC D/w family D/w nursing D/w Dr. Slaughter Records [place] reviewed. Critically ill [id number] Attending Co-Sign The patient was seen and interviewed as well as examined at the bedside. The chart was reviewed. The case was discussed. Agree with the plan of care. JENNIFER BENJAMIN APRN Dec 20, 2018 12:10 BIANCA DOYLE MD Dec 20, 2018 13:35
--- NOTE | 2018-12-20 12:50 | RAD ---
EXAM: Bilateral lower extremity venous Doppler. HISTORY: History of pulmonary embolism. Lower extremity swelling. Respiratory failure. COMPARISON: None. FINDINGS: Grayscale and Doppler analysis of the both lower extremity deep venous systems was performed with graded compression and augmentation. The common femoral, greater saphenous, superficial femoral, popliteal and calf veins were assessed. There is no evidence of deep venous thrombosis. IMPRESSION: 1. No evidence of deep venous thrombosis. Electronically signed by: Aimee Brizuela MD (12/20/2018 12:48 PM) [facility]
--- NOTE | 2018-12-20 13:23 | CONS ---
DATE OF CONSULTATION: 12/20/2018 ATTENDING PHYSICIAN: Karen Felipe MD. CONSULTING PHYSICIAN: Arturo Daniel MD. REASON FOR CONSULTATION: The patient seen in pulmonary consultation at the request of Dr. Felipe for vent management, status post out of hospital arrest. HISTORY OF PRESENT ILLNESS: The patient is a 73-year-old that was recently hospitalized at [facility]. At that time, she underwent left heart catheterization, had a non-ST segment elevation DC, status post PTCA to the LAD with mild disease to other major vessels. She has a history of ischemic cardiomyopathy 35%-40%. Yesterday, she arrested. I do not know the details. I spoke with Dr. Haddad. Apparently, the patient was found in [place]. There is no documentation of VFib or V-tach. She was resuscitated. She is currently on mechanical ventilation. She is currently undergoing hypothermic protocol, sedated, on assist control ventilation. PAST MEDICAL HISTORY: Coronary artery disease as described above, ischemic cardiomyopathy 35%-40%, recent PTCA to the LAD. She has also had previous PCI to the RCA in 2012. She has a history of hypertension, chronic systolic and diastolic heart failure, type 2 diabetes, chronic kidney disease. PAST SURGICAL HISTORY: Left heart catheterization as above. In addition, she had previous stent placement. FAMILY HISTORY: Hypertension. SOCIAL HISTORY: She lives with the family. No history of alcohol or tobacco use. REVIEW OF SYSTEMS: Unable secondary to the patient's condition. ALLERGIES: LISTED TO PENICILLIN, SULFA AND TRAMADOL. CURRENT MEDICATIONS: List was reviewed. PHYSICAL EXAMINATION: GENERAL: The patient was sedated, undergoing hypothermic protocol. HEENT: Eyes, the sclerae were nonicteric. NECK: Jugular venous distention could not be assessed. Orally placed tracheostomy tube. CHEST: Full expansion. LUNGS: Adequate airway flow with no wheezes. CARDIOVASCULAR: Regular rate and rhythm with S1, S2, no S3. ABDOMEN: Soft. EXTREMITIES: No pitting edema. NEUROLOGIC: The patient was sedated and undergoing hypothermic protocol. LABORATORY DATA: Arterial blood gas this morning, pH of 7.31, PaCO2 of 48, pO2 of 176. White count was elevated. Hemoglobin and hematocrit were noted. BUN was elevated, creatinine was elevated. Procalcitonin was elevated at 0.72. Troponin was elevated. UA was noted. Toxicology screen was negative. Chest x-ray reviewed, no acute cardiopulmonary process. IMPRESSION: 1. Acute hypoxemic respiratory failure secondary to out of hospital cardiac arrest. 2. Out of hospital arrest, suspect cardiac in origin. 3. Coronary artery disease with history of ischemic cardiomyopathy, ejection fraction -40% percent. Recent percutaneous transluminal coronary angioplasty to the left anterior descending back in 11/2018. 4. Hypertension. 5. Chronic systolic, diastolic heart failure. 6. Type 2 diabetes. 7. Chronic kidney disease. 8. ALLERGIES TO PENICILLIN, SULFA AND TRAMADOL. PLAN: 1. Continue current hypothermic protocol. 2. Suspect leukocytosis is reactive. We will empirically treat for antibiotics for now. 3. Case discussed with Dr. Haddad. 4. Sedate. 5. Nebulized treatments. 6. Consult Nephrology, already performed. I do appreciate the privilege in sharing in the patient's care. Total cumulative critical care time of 40 minutes. ARTURO DANIEL MD DR: KYLEE/ariel JOB#: [id number] / [id number]
--- NOTE | 2018-12-20 13:52 | CONS ---
DATE OF CONSULTATION: 12/20/2018 Mp Hernandez dictating for Dr. Dayton Lopez, Infectious Disease. REQUESTING PHYSICIAN: Dr. Kohli. REASON FOR CONSULTATION: Possible aspiration. HISTORY OF PRESENT ILLNESS: This patient is a 73-year-old -[place] female who is currently orally intubated and sedated, unable to provide history of present illness, past medical history or review of systems. According to her , she had a rattly cough for the past few days. Yesterday morning, she woke with complaints of difficulty breathing which improved with rest. She ate some breakfast and then had a breathing treatment. They told her to call 911. She lost consciousness. EMS arrived and then she had CPR. She was initially taken to [facility] before transferring here to [place] for further management. She is on hypothermia protocol. She has not required any vasopressor support. She had a seizure-like activity. Neurology has been consulted. She has a history of coronary artery disease, status post PTCA on 11/30. PAST MEDICAL HISTORY: Coronary artery disease, diabetes, chronic kidney disease, hypertension, fibromyalgia, questionable history of seizure, hyperlipidemia, small pulmonary nodule. PAST SURGICAL HISTORY: Hysterectomy, cardiac stents. FAMILY HISTORY: Coronary artery disease. SOCIAL HISTORY: The patient is and lives at home. Former smoker. ALLERGIES: PENICILLIN AND SULFA, reaction unknown. MEDICATIONS: Zyvox, meropenem and levofloxacin. Other medications are available and have been reviewed on the AUG. REVIEW OF SYSTEMS: Unobtainable as the patient is sedated, orally intubated. PHYSICAL EXAMINATION: VITAL SIGNS: Temperature is 91.7, blood pressure 155/57, heart rate 56, respiratory rate 26, pulse oximetry 100% on FiO2 of 40%. GENERAL: The patient is slightly propped up in bed, her eyes were rolled back, and she is exhibiting rhythmic facial movements. HEENT: Pupils equally small. OGT and ETT in place. LUNGS: Clear anteriorly. HEART: S1, S2 regular. ABDOMEN: Soft, bowel sounds present. GENITOURINARY: Bertrand in place. EXTREMITIES: Trace edema, no cyanosis. SKIN: Cold. She has a cooling device in place. NEUROLOGIC: Unresponsive/sedated. LABORATORY DATA: Today's WBC 11.8, from 16.6. Hemoglobin 9.4, platelets 196,000. Sodium 143, potassium 3.6, creatinine 1.8, BUN 22, glucose 338. Lactic acid 1.8 and 2.3. Troponin 0.123. Total bilirubin 0.4, AST 56, ALT 39. TSH 2.094. Procalcitonin 0.72. Urinalysis showed wbc's 5-10, few squamous epithelial cells. Urine toxicology positive for benzodiazepines. MRSA PCR blood and sputum cultures pending. Chest x-ray shows no confluent infiltrates. Renal ultrasound showed bilaterally increased cortical echogenicity consistent with intrinsic renal disease. No hydronephrosis. Lower extremity ultrasound pending. ASSESSMENT: 1. Status post outside code blue. 2. Induced hypothermia. 3. Leukocytosis. 4. PENICILLIN AND SULFA ALLERGY. 5. Acute respiratory failure. 6. Seizure-like activity. 7. Lactic acidosis, resolved. 8. Coronary artery disease, status post PTCA on 11/30. 9. Chronic kidney disease. 10. Diabetes. PLAN: Continue antibiotic coverage empirically for aspiration. No need for Zyvox or levofloxacin. We will follow up on blood culture results and monitor response. Discussed with family. Records from [place] were reviewed. Critically ill. Thank you, Dr. Kohli, for asking us to participate in this patient's care. Should you have further questions or concerns, please call. The patient is seen and examined and plan of care implemented by Dr. Dayton Lopez. DAYTON LOPEZ MD DR: AURA/ariel JOB#: [id number] / [id number] MADDIE
[2018-12-20] MEDS ORDERED: levETIRAcetam 1,000 MG in IV DEXTROSE 5% 100ML 100 ML IV ONE (14:30)
[2018-12-20 14:39] LABS: BILIRUBIN,URINE NEGATIVE (NEG); CLARITY,URINE CLEAR; COLOR,URINE YELLOW; NITRITE,URINE NEGATIVE (NEG); PH,URINE 5.5; PROTEIN,URINE >=300 mg/dL (NEG-TRACE); UROBILINOGEN,URINE 0.2 mg/dL (0.2 mg/dL)
[2018-12-20 14:49] LABS: BASO % 0 % (0-3); EOS % 0 % (0-3); HEMATOCRIT 32.4 % (36.0-47.0); HEMOGLOBIN 10.4 g/dL (12.0-15.5); LYMPH # 1.7 x10^3/uL (1.0-4.8); LYMPH % 7 % (24-48); MEAN CORPUSCULAR HEMOGLOBIN 25 pg (25-35); MEAN CORPUSCULAR HGB CONC 32 g/dL (31-37); MEAN CORPUSCULAR VOLUME 79 fL (79-100); MONO # 1.3 x10^3/uL (0.0-1.1); MONO % 5 % (0-9); NEUT # 22.6 x10^3uL (1.8-7.7); NEUT % 88 % (31-73); PLATELET COUNT 267 x10^3/uL (140-400); RED BLOOD COUNT 4.13 x10^6/uL (3.50-5.40); RED CELL DISTRIBUTION WIDTH 16.6 % (11.5-14.5); WHITE BLOOD COUNT 25.6 x10^3/uL (4.0-11.0)
--- NOTE | 2018-12-20 14:59 | CONS ---
DATE OF CONSULTATION: 12/20/2018 REFERRING PHYSICIAN: Dr. Felipe. REASON FOR CONSULTATION: Cardiopulmonary arrest under hypothermic protocol and possible seizure. HISTORY OF PRESENT ILLNESS: The patient is a 73-year-old woman who had been having progressive difficulty with breathing. She normally has lung difficulty and using breathing treatments at home. According to discussions with nursing staff, she had been using an excessive amount of breathing treatments because of progressive difficulty with breathing. She then told her she was short of breath while doing a breathing treatment and lost consciousness and had agonal respirations. EMS came to the scene and found her in bed. She then went into pulseless electrical activity and CPR was initiated. She received epinephrine. She was intubated at the scene. She is currently in the hypothermic protocol, being intubated with propofol and fentanyl. She recently had balloon angioplasty for coronary artery disease. She was told she would need bypass surgery, but refused. The nurses also noted that she has been having twitching activity where her eyes were open and she will have some twitching of the arms and mouth. This usually lasts for several seconds, but it cycles. PAST MEDICAL HISTORY: 1. Coronary artery disease, status post recent balloon angioplasty. 2. Hypertension. 3. Hyperlipidemia. 4. Chronic kidney disease. 5. Bronchitis. 6. Chronic obstructive pulmonary disease. ALLERGIES: PENICILLINS, SULFA AND TRAMADOL. MEDICATIONS PRIOR TO ADMISSION: Acetaminophen as needed, albuterol metered dose inhaler as needed, aspirin 81 mg, atorvastatin 40 mg, Pulmicort twice per day, cetirizine 10 mg, vitamin D2 50,000 units weekly, clopidogrel 75 mg, vitamin B12 IM weekly, dorzolamide ophthalmic twice per day, Flonase nasal spray, glipizide 5 mg twice per day, latanoprost ophthalmic, levofloxacin 500 mg, lisinopril 10 mg, methylprednisolone 4 mg and nitroglycerin sublingual as needed. FAMILY HISTORY: Hypertension. SOCIAL HISTORY: She lives with her . She does not smoke tobacco, drink alcohol or use recreational drugs. REVIEW OF SYSTEMS: Not obtainable from the patient as she was in a coma. She has had shortness of breath and may have been developing an upper respiratory tract infection. PHYSICAL EXAMINATION: VITAL SIGNS: The blood pressure was 155/57, pulse 56, respirations 26, temperature 91.7 degrees rectally. Oximetry was 100% on the ventilator. NEUROLOGIC: She was intubated, ventilated and sedated with propofol and fentanyl. The eyes were open a slit. With noxious stimulation, the eyes would open slightly more. Periodically, her eyes would open and she would have twitching of the mouth and arms. This would only last a second or two and then subside. She did not follow command or look up or down to command. When held open, the eyes were disconjugate. She did not respond to visual threat or loud clap. Pupils were 3-4 mm and did not react. Funduscopic exam on the right did not reveal papilledema. I was not able to see the funduscopic exam on the left due to cloudiness of the lens. Corneal reflex was absent. Oculocephalic reflex was absent. NECK: Not rigid. EXTREMITIES: Tone was increased in the upper and lower extremities. Nail bed pressure did not provoke a response, but she did appear to be in some extensor posturing. Tendon reflexes were brisk in the upper extremities, absent in the legs and feet. Toes were not up or downgoing. She did have some edema of her feet. Peripheral pulses were 2/4 at the wrists and very diminished in the feet. HEART: Auscultation of the carotid arteries did not reveal a bruit. Heart rhythm was regular without a murmur. She was not overbreathing on the ventilator. REVIEW OF LABORATORY INFORMATION: CBC revealed an elevated white count of 11.8. Hemoglobin was diminished at 9.4 and hematocrit at 29.3 with normal platelet count. Chemistries revealed normal electrolytes. BUN was 22 and creatinine 1.8 with a calculated GFR of 33.2. Glucose was elevated at 338. Lactic acid was initially 2.3, came down to 2.2 and then this morning was 1.8. Phosphorus was elevated at 2.5 and magnesium at 3.2. SGOT was 56. The remainder of the liver enzymes were not elevated. Total protein was 6.1, albumin was 3 with calcium at 8.8. Troponin was elevated at 0.123. Drug screen was negative. Urinalysis revealed greater than 1000 mg/dL of glucose, 15 ketones, trace blood, 6-10 red blood cells, 5-10 white blood cells, few squamous epithelial cells and no bacteria. PT/INR was 1.1. PTT was greater than 150, but she is on a heparin drip. CT scan of the brain was performed at the referring hospital. I do have the report, which revealed no acute intracranial process. IMPRESSION: The patient is a 73-year-old woman who began with a respiratory arrest that led to a cardiopulmonary arrest with pulseless electrical activity. She did receive CPR in a timely fashion. Unfortunately, the primary issue was likely hypoxia because of the respiratory arrest leading to the cardiac arrest, so the CPR may not have been as effective. She does appear to be having some twitching activity, which could be a physical manifestation of a burst suppression pattern or could potentially be underlying seizure. She is under the hypothermic protocol, so the neurologic examination is not valid. RECOMMENDATIONS: She should complete the hypothermic protocol and be warmed per protocol. Neurology will reevaluate when she is warm. I will initiate levetiracetam 1000 mg now and 500 mg twice per day intravenously. We may need to proceed with an EEG if it appears that this activity might be seizure. I spoke with the family at bedside and explained the situation at length. I appreciate being involved in her care. SAIMA ESCOBAR MD DR: CHARY/ariel JOB#: [id number] / [id number]
[2018-12-20 15:05] LABS: BACTERIA,URINE FEW /HPF (0-FEW); RBC,URINE 20-40 /HPF (0-2); SQUAMOUS EPITHELIAL CELL,UR FEW /LPF
[2018-12-20 15:10] LABS: CALCIUM 8.9 mg/dL (8.5-10.1); CREATININE 1.8 mg/dL (0.6-1.0); GFR 33.2; POTASSIUM 5.1 mmol/L (3.5-5.1)
[2018-12-20 15:11] LABS: % BANDS 9 % (0-9); % LYMPHS 5 % (24-48); % MONOS 3 % (0-10); % SEGS 83 % (35-66)
[2018-12-20 15:15] LABS: MAGNESIUM 3.1 mg/dL (1.8-2.4); PHOSPHORUS 8.3 mg/dL (2.6-4.7)
[2018-12-20 15:16] LABS: PLT ESTIMATE ADEQUATE (ADEQUATE); POIKILOCYTOSIS MOD; SCHISTOCYTES FEW
[2018-12-20] MEDS: PANTOPRAZOLE IV PUSH 40 MG VIAL. IVP SCH (15:33)
[2018-12-20] MEDS: levETIRAcetam 500 MG in IV DEXTROSE 5% 100ML 100 ML IV SCH (21:13)
[2018-12-21] VITALS (24 sets, daily range): BP systolic 75–140; BP diastolic 41–90
[2018-12-21] MEDS: PROPOFOL 100 ML IV PRN (00:13)
[2018-12-21] MEDS: busPIRone 10 MG TABLET. NG SCH ×2 (03:00→11:00)
[2018-12-21] MEDS: ACETAMINOPHEN 650 MG/20.3 ML SOLUTION. NG SCH ×4 (03:00→15:00)
[2018-12-21] MEDS: methylPREDNISolone SOD SUCC PF 125 MG/2 ML VIAL. IV SCH ×3 (05:51→21:30)
[2018-12-21] MEDS: POLYVINYL ALCOHOL 1.4% OPHTH SOLUTION 15ML BOTTLE. OU SCH ×5 (05:51→23:41)
--- NOTE | 2018-12-21 07:44 | PDOC ---
Infectious Disease Note Subjective Subjective pt is unresponsive ROS ROS unable to do Vital Sign Vital Signs Vital Signs Date Time Temp Pulse Resp B/P (MAP) Pulse Ox O2 Delivery O2 Flow Rate FiO2 12/21/18 06:33 26 100 Ventilator 12/21/18 06:00 79 83/62 (69) 12/21/18 06:00 96.4 Physical Exam PHYSICAL EXAM GENERAL: The patient is in bed, her eyes were rolled back, and she is exhibiting rhythmic facial movements. HEENT: Pupils equally small. OGT and ETT in place. LUNGS: Clear anteriorly. HEART: S1, S2 regular. ABDOMEN: Soft, bowel sounds present. GENITOURINARY: Bertrand in place. EXTREMITIES: Trace edema, no cyanosis. SKIN: Cold. She has a cooling device in place. NEUROLOGIC: Unresponsive/sedated. Labs Lab Laboratory Tests Test 12/20/18 08:00 12/20/18 11:05 12/20/18 14:20 12/20/18 14:40 O2 Saturation 99 % (92-99) Arterial Blood pH 7.26 (7.35-7.45) Arterial Blood pH (Temp corrected) 7.31 Arterial Blood pCO2 at Patient Temp 48 mmHg (35-46) Arterial Blood pCO2 (Temp correct) 40 mmHg Arterial Blood pO2 at Patient Temp 176 mmHg (65-108) Arterial Blood pO2 (Temp corrected) 154 mmHg Arterial Blood HCO3 21 mmol/L (21-28) Arterial Blood Base Excess -6 mmol/L (-3-3) FiO2 40 Heparin Anti-Xa Act, Unfractionated 0.47 IU/mL (0.30-0.70) Urine Collection Type Unknown Urine Color Yellow Urine Clarity Clear Urine pH 5.5 Urine Specific [place]pe 1.020 Urine Protein >=300 mg/dL (NEG-TRACE) Urine Glucose (UA) 250 mg/dL (NEG) Urine Ketones (Stick) Trace mg/dL (NEG) Urine Blood Large (NEG) Urine Nitrite Negative (NEG) Urine Bilirubin Negative (NEG) Urine Urobilinogen Dipstick 0.2 mg/dL (0.2 mg/dL) Urine Leukocyte Esterase Negative (NEG) Urine RBC 20-40 /HPF (0-2) Urine WBC 1-4 /HPF (0-4) Urine Squamous Epithelial Cells Few /LPF Urine Bacteria Few /HPF (0-FEW) White Blood Count 25.6 x10^3/uL (4.0-11.0) Red Blood Count 4.13 x10^6/uL (3.50-5.40) Hemoglobin 10.4 g/dL (12.0-15.5) Hematocrit 32.4 % (36.0-47.0) Mean Corpuscular Volume 79 fL (79-100) Mean Corpuscular Hemoglobin 25 pg (25-35) Mean Corpuscular Hemoglobin Concent 32 g/dL (31-37) Red Cell Distribution Width 16.6 % (11.5-14.5) Platelet Count 267 x10^3/uL (140-400) Neutrophils (%) (Auto) 88 % (31-73) Lymphocytes (%) (Auto) 7 % (24-48) Monocytes (%) (Auto) 5 % (0-9) Eosinophils (%) (Auto) 0 % (0-3) Basophils (%) (Auto) 0 % (0-3) Neutrophils # (Auto) 22.6 x10^3uL (1.8-7.7) Lymphocytes # (Auto) 1.7 x10^3/uL (1.0-4.8) Monocytes # (Auto) 1.3 x10^3/uL (0.0-1.1) Eosinophils # (Auto) 0.0 x10^3/uL (0.0-0.7) Basophils # (Auto) 0.0 x10^3/uL (0.0-0.2) Segmented Neutrophils % 83 % (35-66) Band Neutrophils % 9 % (0-9) Lymphocytes % 5 % (24-48) Monocytes % 3 % (0-10) Platelet Estimate Adequate (ADEQUATE) Poikilocytosis Mod Crenated Cell Present Schistocytes Few Activated Partial Thromboplast Time 99 SEC (24-38) Sodium Level 144 mmol/L (136-145) Potassium Level 5.1 mmol/L (3.5-5.1) Chloride Level 106 mmol/L (98-107) Carbon Dioxide Level 27 mmol/L (21-32) Anion Gap 11 (6-14) Blood Urea Nitrogen 25 mg/dL (7-20) Creatinine 1.8 mg/dL (0.6-1.0) Estimated GFR (Cockcroft-Gault) 33.2 Glucose Level 175 mg/dL (70-99) Calcium Level 8.9 mg/dL (8.5-10.1) Ionized Calcium 1.15 mmol/L (1.13-1.32) Phosphorus Level 8.3 mg/dL (2.6-4.7) Magnesium Level 3.1 mg/dL (1.8-2.4) Test 12/20/18 22:19 12/20/18 23:14 12/21/18 00:16 12/21/18 06:02 Glucose (Fingerstick) 142 mg/dL (70-99) 142 mg/dL (70-99) 146 mg/dL (70-99) 161 mg/dL (70-99) Micro Microbiology 12/19/18 Blood Culture - Preliminary, Resulted NO GROWTH AFTER 1 DAY Objective Assessment 1. Status post outside code blue. 2. Induced hypothermia. 3. Leukocytosis. 4. PENICILLIN AND SULFA ALLERGY. 5. Acute respiratory failure. 6. Seizure-like activity. Anoxic brain injury 7. Lactic acidosis, resolved. 8. Coronary artery disease, status post PTCA on 11/30. 9. Chronic kidney disease. 10. Diabetes. Plan Plan of Care on meropenem supportive care prognosis poor BIANCA DOYLE MD Dec 21, 2018 07:44
[2018-12-21] MEDS: levETIRAcetam 500 MG in IV DEXTROSE 5% 100ML 100 ML IV SCH ×2 (08:18→21:29)
[2018-12-21] MEDS: PANTOPRAZOLE IV PUSH 40 MG VIAL. IVP SCH (08:18)
[2018-12-21] MEDS: ASPIRIN CHEWABLE 81 MG TABLET. PO SCH (08:18)
[2018-12-21] MEDS: PRASUGREL 10 MG TABLET. PO SCH (08:18)
[2018-12-21] MEDS: MEROPENEM 500 MG in IV NORMAL SALINE 50ML 50 ML IV SCH ×2 (08:18→21:29)
--- NOTE | 2018-12-21 09:04 | PN ---
DATE: 12/21/2018 SUBJECTIVE: The patient is resting, slightly propped up in bed, continued to be sedated, intubated and mechanically ventilated. She continued to be on hypothermia protocol. Her temperature is up to 97.2. She continued to have twitching that seemed to be generalized, although is not tonic-clonic seizures. She is on Keppra 500 mg twice a day, continues to also be on high dose steroids, IV meropenem. OBJECTIVE: GENERAL: On examining her, she looked pale, no jaundice, cyanosis, or thyromegaly. No jugular venous distension. No limb edema. VITAL SIGNS: Her heart rate was 79, blood pressure was 83/62, temperature was 96.4, respiratory rate was 26 and oxygen saturation was 100% on FiO2 of 40%. HEAD, EYES, EARS, NOSE AND THROAT: Normocephalic, atraumatic. She has orotracheal and orogastric tube in place. NECK: Supple. CARDIAC: Normal first and second heart sounds. No gallop, rub or murmur. CHEST: Shows central trachea, equal bilateral chest expansion, air entry, vesicular sounds. No crepitation or rhonchi. ABDOMEN: Distended, soft, nontender. NEUROLOGIC: She is encephalopathic. She does not respond to verbal or painful stimuli, has no gag reflex and has generalized twitching. Her intake over the last 24 hours was 507, output was 825. LABORATORY DATA: Her lab work as of yesterday showed a white cell count of 25,600, hemoglobin 10, hematocrit 32, MCV 79 and platelet count 267,000. Her chemistry showed a serum sodium 144, potassium 5.1, chloride 106, bicarbonate 27, anion gap 11, BUN 25, creatinine 1.8, estimated GFR was 53 mL per minute. Her glucose 175, calcium was 8.9, phosphorus was 8.3, and magnesium was 3.1. Total bilirubin, AST, ALT were normal. Alkaline phosphatase, her troponin was slightly elevated. Total protein was 6.1, albumin 3. Today's labs are still pending at the time of this dictation. ASSESSMENT: 1. Out of hospital cardiac arrest. 2. Acute respiratory failure, currently intubated and mechanically ventilated. 3. Coronary artery disease or history of ischemic cardiomyopathy, ejection fraction approximately 40%. 4. Recent percutaneous transluminal coronary angioplasty and stent deployment, hypertension, chronic systolic and diastolic congestive heart failure, type 2 diabetes, chronic kidney disease. PLAN: To continue with hypothermia protocol. Continue with the IV antibiotic. Continue with Solu-Medrol and nebulized treatment. Continue with DVT prophylaxis. Continue with GI prophylaxis. The patient continued to be on hypothermia protocol once she is rewarmed Obviously, she will be evaluated by the neurologist. She continued to have twitching that might indicate seizure activity for which she was started on Keppra 500 mg IV twice a day. DI HANNAH MD DR: ZEUS/ariel JOB#: [id number] / [id number]
[2018-12-21 09:06] LABS: BASE EXCESS ABG -3 mmol/L (-3-3); HCO3 ABG 19 mmol/L (21-28); PCO2 ABG 26 mmHg (35-46); PO2 ABG 207 mmHg (65-108); SAT O2 ABG 99 % (92-99)
[2018-12-21] MEDS: IPRATRPIUM/ALBUTEROL 0.5/2.5MG 3 ML NEBU. NEB SCH ×4 (09:08→20:06)
[2018-12-21] MEDS: BUDESONIDE 0.5 MG/2 ML NEBU. NEB SCH ×2 (09:08→20:06)
[2018-12-21 09:13] LABS: FIO2 ABG 40
--- NOTE | 2018-12-21 09:16 | RAD ---
Examination: PORTABLE CHEST 1V History: Respiratory failure Comparison/Correlation: 12/20/2018 portable chest x-ray exam Findings: Portable chest x-ray exam was performed to patient semiupright. Endotracheal tube terminates 4.6 cm from the brittny. Nasogastric tube is identified the subdiaphragmatic region. Heart size is normal. No pneumothorax. Pulmonary vasculature is at the upper limits of normal. Pulmonary interstitial thickening or edema is similar to previous exam. No focal consolidation in the interval. Impression: No focal process. No change in pulmonary aeration. Electronically signed by: Jamie Irwin MD (12/21/2018 9:13 AM) [facility]
--- NOTE | 2018-12-21 09:33 | PDOC ---
PULMONARY PROGRESS NOTES Subjective PT WARMED THIS AM NOW ON AC MODE Vitals Vital Signs Date Time Temp Pulse Resp B/P (MAP) Pulse Ox O2 Delivery O2 Flow Rate FiO2 12/21/18 08:51 100 Ventilator 12/21/18 08:00 97.2 12/21/18 06:33 26 12/21/18 06:00 79 HEENT: Other Lungs: Clear Cardiovascular: S1, S2 Abdomen: Soft Extremities: No Edema Skin: Warm Labs Laboratory Tests Test 12/19/18 18:18 12/19/18 18:50 12/19/18 19:20 12/19/18 23:10 Nasal Screen MRSA (PCR) Negative (Negative) White Blood Count 16.6 x10^3/uL (4.0-11.0) Red Blood Count 3.91 x10^6/uL (3.50-5.40) Hemoglobin 10.0 g/dL (12.0-15.5) Hematocrit 31.1 % (36.0-47.0) Mean Corpuscular Volume 79 fL (79-100) Mean Corpuscular Hemoglobin 26 pg (25-35) Mean Corpuscular Hemoglobin Concent 32 g/dL (31-37) Red Cell Distribution Width 15.9 % (11.5-14.5) Platelet Count 278 x10^3/uL (140-400) Neutrophils (%) (Auto) 71 % (31-73) Lymphocytes (%) (Auto) 15 % (24-48) Monocytes (%) (Auto) 10 % (0-9) Eosinophils (%) (Auto) 4 % (0-3) Basophils (%) (Auto) 1 % (0-3) Neutrophils # (Auto) 11.7 x10^3uL (1.8-7.7) Lymphocytes # (Auto) 2.5 x10^3/uL (1.0-4.8) Monocytes # (Auto) 1.7 x10^3/uL (0.0-1.1) Eosinophils # (Auto) 0.7 x10^3/uL (0.0-0.7) Basophils # (Auto) 0.1 x10^3/uL (0.0-0.2) Prothrombin Time 14.2 SEC (11.7-14.0) Prothromb Time International Ratio 1.1 (0.8-1.1) Activated Partial Thromboplast Time > 150 SEC (24-38) Heparin Anti-Xa Act, Unfractionated 0.82 IU/mL (0.30-0.70) Sodium Level 143 mmol/L (136-145) Potassium Level 4.1 mmol/L (3.5-5.1) Chloride Level 106 mmol/L (98-107) Carbon Dioxide Level 23 mmol/L (21-32) Anion Gap 14 (6-14) Blood Urea Nitrogen 17 mg/dL (7-20) Creatinine 1.8 mg/dL (0.6-1.0) Estimated GFR (Cockcroft-Gault) 33.2 BUN/Creatinine Ratio 9 (6-20) Glucose Level 255 mg/dL (70-99) Lactic Acid Level 2.3 mmol/L (0.4-2.0) 2.2 mmol/L (0.4-2.0) Calcium Level 9.0 mg/dL (8.5-10.1) Phosphorus Level 5.0 mg/dL (2.6-4.7) Magnesium Level 3.2 mg/dL (1.8-2.4) Total Bilirubin 0.3 mg/dL (0.2-1.0) Aspartate Amino Transf (AST/SGOT) 65 U/L (15-37) Alanine Aminotransferase (ALT/SGPT) 45 U/L (14-59) Alkaline Phosphatase 87 U/L (46-116) Troponin I Quantitative 0.085 ng/mL (0.000-0.055) Total Protein 6.6 g/dL (6.4-8.2) Albumin 3.6 g/dL (3.4-5.0) Albumin/Globulin Ratio 1.2 (1.0-1.7) Triglycerides Level 38 mg/dL (0-150) Procalcitonin 0.72 ng/mL (0.00-0.10) Thyroid Stimulating Hormone (TSH) 2.094 uIU/mL (0.358-3.74) O2 Saturation 99 % (92-99) Arterial Blood pH 7.40 (7.35-7.45) Arterial Blood pH (Temp corrected) 7.45 Arterial Blood pCO2 at Patient Temp 40 mmHg (35-46) Arterial Blood pCO2 (Temp correct) 34 mmHg Arterial Blood pO2 at Patient Temp 150 mmHg (65-108) Arterial Blood pO2 (Temp corrected) 129 mmHg Arterial Blood HCO3 24 mmol/L (21-28) Arterial Blood Base Excess -1 mmol/L (-3-3) FiO2 40 Test 12/20/18 00:10 12/20/18 04:00 12/20/18 04:34 12/20/18 04:45 Urine Collection Type Unknown Urine Color Yellow Urine Clarity Clear Urine pH 7.0 Urine Specific [place] 1.015 Urine Protein 100 mg/dL (NEG-TRACE) Urine Glucose (UA) >=1000 mg/dL (NEG) Urine Ketones (Stick) 15 mg/dL (NEG) Urine Blood Trace (NEG) Urine Nitrite Negative (NEG) Urine Bilirubin Negative (NEG) Urine Urobilinogen Dipstick 0.2 mg/dL (0.2 mg/dL) Urine Leukocyte Esterase Negative (NEG) Urine RBC 6-10 /HPF (0-2) Urine WBC 5-10 /HPF (0-4) Urine Squamous Epithelial Cells Few /LPF Urine Amorphous Sediment Present /HPF Urine Bacteria 0 /HPF (0-FEW) Urine Mucus Slight /LPF Urine Opiates Screen Neg (NEG) Urine Methadone Screen Neg (NEG) Urine Barbiturates Neg (NEG) Urine Phencyclidine Screen Neg (NEG) Urine Amphetamine/Methamphetamine Neg (NEG) Urine Benzodiazepines Screen Pos (NEG) Urine Cocaine Screen Neg (NEG) Urine Cannabinoids Screen Neg (NEG) Urine Ethyl Alcohol Neg (NEG) White Blood Count 11.8 x10^3/uL (4.0-11.0) Red Blood Count 3.68 x10^6/uL (3.50-5.40) Hemoglobin 9.4 g/dL (12.0-15.5) Hematocrit 29.3 % (36.0-47.0) Mean Corpuscular Volume 80 fL (79-100) Mean Corpuscular Hemoglobin 26 pg (25-35) Mean Corpuscular Hemoglobin Concent 32 g/dL (31-37) Red Cell Distribution Width 16.3 % (11.5-14.5) Platelet Count 196 x10^3/uL (140-400) Neutrophils (%) (Auto) 87 % (31-73) Lymphocytes (%) (Auto) 10 % (24-48) Monocytes (%) (Auto) 2 % (0-9) Eosinophils (%) (Auto) 0 % (0-3) Basophils (%) (Auto) 0 % (0-3) Neutrophils # (Auto) 10.3 x10^3uL (1.8-7.7) Lymphocytes # (Auto) 1.2 x10^3/uL (1.0-4.8) Monocytes # (Auto) 0.3 x10^3/uL (0.0-1.1) Eosinophils # (Auto) 0.0 x10^3/uL (0.0-0.7) Basophils # (Auto) 0.0 x10^3/uL (0.0-0.2) Segmented Neutrophils % 84 % (35-66) Band Neutrophils % 1 % (0-9) Lymphocytes % 12 % (24-48) Monocytes % 3 % (0-10) Platelet Estimate Adequate (ADEQUATE) Poikilocytosis Mod Crenated Cell Present Schistocytes Few Lactic Acid Level 1.8 mmol/L (0.4-2.0) Troponin I Quantitative 0.123 ng/mL (0.000-0.055) Prothrombin Time 13.8 SEC (11.7-14.0) Prothromb Time International Ratio 1.1 (0.8-1.1) Heparin Anti-Xa Act, Unfractionated 0.46 IU/mL (0.30-0.70) Test 12/20/18 05:00 12/20/18 08:00 12/20/18 11:05 12/20/18 14:20 Sodium Level 143 mmol/L (136-145) Potassium Level 3.6 mmol/L (3.5-5.1) Chloride Level 105 mmol/L (98-107) Carbon Dioxide Level 22 mmol/L (21-32) Anion Gap 16 (6-14) Blood Urea Nitrogen 22 mg/dL (7-20) Creatinine 1.8 mg/dL (0.6-1.0) Estimated GFR (Cockcroft-Gault) 33.2 BUN/Creatinine Ratio 12 (6-20) Glucose Level 338 mg/dL (70-99) Calcium Level 8.8 mg/dL (8.5-10.1) Phosphorus Level 2.5 mg/dL (2.6-4.7) Magnesium Level 3.2 mg/dL (1.8-2.4) Total Bilirubin 0.4 mg/dL (0.2-1.0) Aspartate Amino Transf (AST/SGOT) 56 U/L (15-37) Alanine Aminotransferase (ALT/SGPT) 39 U/L (14-59) Alkaline Phosphatase 73 U/L (46-116) Total Protein 6.1 g/dL (6.4-8.2) Albumin 3.0 g/dL (3.4-5.0) Albumin/Globulin Ratio 1.0 (1.0-1.7) O2 Saturation 99 % (92-99) Arterial Blood pH 7.26 (7.35-7.45) Arterial Blood pH (Temp corrected) 7.31 Arterial Blood pCO2 at Patient Temp 48 mmHg (35-46) Arterial Blood pCO2 (Temp correct) 40 mmHg Arterial Blood pO2 at Patient Temp 176 mmHg (65-108) Arterial Blood pO2 (Temp corrected) 154 mmHg Arterial Blood HCO3 21 mmol/L (21-28) Arterial Blood Base Excess -6 mmol/L (-3-3) FiO2 40 Heparin Anti-Xa Act, Unfractionated 0.47 IU/mL (0.30-0.70) Urine Collection Type Unknown Urine Color Yellow Urine Clarity Clear Urine pH 5.5 Urine Specific [place] 1.020 Urine Protein >=300 mg/dL (NEG-TRACE) Urine Glucose (UA) 250 mg/dL (NEG) Urine Ketones (Stick) Trace mg/dL (NEG) Urine Blood Large (NEG) Urine Nitrite Negative (NEG) Urine Bilirubin Negative (NEG) Urine Urobilinogen Dipstick 0.2 mg/dL (0.2 mg/dL) Urine Leukocyte Esterase Negative (NEG) Urine RBC 20-40 /HPF (0-2) Urine WBC 1-4 /HPF (0-4) Urine Squamous Epithelial Cells Few /LPF Urine Bacteria Few /HPF (0-FEW) Test 12/20/18 14:40 12/20/18 22:19 12/20/18 23:14 12/21/18 00:16 White Blood Count 25.6 x10^3/uL (4.0-11.0) Red Blood Count 4.13 x10^6/uL (3.50-5.40) Hemoglobin 10.4 g/dL (12.0-15.5) Hematocrit 32.4 % (36.0-47.0) Mean Corpuscular Volume 79 fL (79-100) Mean Corpuscular Hemoglobin 25 pg (25-35) Mean Corpuscular Hemoglobin Concent 32 g/dL (31-37) Red Cell Distribution Width 16.6 % (11.5-14.5) Platelet Count 267 x10^3/uL (140-400) Neutrophils (%) (Auto) 88 % (31-73) Lymphocytes (%) (Auto) 7 % (24-48) Monocytes (%) (Auto) 5 % (0-9) Eosinophils (%) (Auto) 0 % (0-3) Basophils (%) (Auto) 0 % (0-3) Neutrophils # (Auto) 22.6 x10^3uL (1.8-7.7) Lymphocytes # (Auto) 1.7 x10^3/uL (1.0-4.8) Monocytes # (Auto) 1.3 x10^3/uL (0.0-1.1) Eosinophils # (Auto) 0.0 x10^3/uL (0.0-0.7) Basophils # (Auto) 0.0 x10^3/uL (0.0-0.2) Segmented Neutrophils % 83 % (35-66) Band Neutrophils % 9 % (0-9) Lymphocytes % 5 % (24-48) Monocytes % 3 % (0-10) Platelet Estimate Adequate (ADEQUATE) Poikilocytosis Mod Crenated Cell Present Schistocytes Few Activated Partial Thromboplast Time 99 SEC (24-38) Sodium Level 144 mmol/L (136-145) Potassium Level 5.1 mmol/L (3.5-5.1) Chloride Level 106 mmol/L (98-107) Carbon Dioxide Level 27 mmol/L (21-32) Anion Gap 11 (6-14) Blood Urea Nitrogen 25 mg/dL (7-20) Creatinine 1.8 mg/dL (0.6-1.0) Estimated GFR (Cockcroft-Gault) 33.2 Glucose Level 175 mg/dL (70-99) Calcium Level 8.9 mg/dL (8.5-10.1) Ionized Calcium 1.15 mmol/L (1.13-1.32) Phosphorus Level 8.3 mg/dL (2.6-4.7) Magnesium Level 3.1 mg/dL (1.8-2.4) Glucose (Fingerstick) 142 mg/dL (70-99) 142 mg/dL (70-99) 146 mg/dL (70-99) Test 12/21/18 06:02 12/21/18 08:21 12/21/18 09:00 Glucose (Fingerstick) 161 mg/dL (70-99) 142 mg/dL (70-99) O2 Saturation 99 % (92-99) Arterial Blood pH 7.48 (7.35-7.45) Arterial Blood pCO2 at Patient Temp 26 mmHg (35-46) Arterial Blood pO2 at Patient Temp 207 mmHg (65-108) Arterial Blood HCO3 19 mmol/L (21-28) Arterial Blood Base Excess -3 mmol/L (-3-3) FiO2 40 Laboratory Tests Test 12/20/18 11:05 12/20/18 14:20 12/20/18 14:40 12/20/18 22:19 Heparin Anti-Xa Act, Unfractionated 0.47 IU/mL (0.30-0.70) Urine Collection Type Unknown Urine Color Yellow Urine Clarity Clear Urine pH 5.5 Urine Specific [place] 1.020 Urine Protein >=300 mg/dL (NEG-TRACE) Urine Glucose (UA) 250 mg/dL (NEG) Urine Ketones (Stick) Trace mg/dL (NEG) Urine Blood Large (NEG) Urine Nitrite Negative (NEG) Urine Bilirubin Negative (NEG) Urine Urobilinogen Dipstick 0.2 mg/dL (0.2 mg/dL) Urine Leukocyte Esterase Negative (NEG) Urine RBC 20-40 /HPF (0-2) Urine WBC 1-4 /HPF (0-4) Urine Squamous Epithelial Cells Few /LPF Urine Bacteria Few /HPF (0-FEW) White Blood Count 25.6 x10^3/uL (4.0-11.0) Red Blood Count 4.13 x10^6/uL (3.50-5.40) Hemoglobin 10.4 g/dL (12.0-15.5) Hematocrit 32.4 % (36.0-47.0) Mean Corpuscular Volume 79 fL (79-100) Mean Corpuscular Hemoglobin 25 pg (25-35) Mean Corpuscular Hemoglobin Concent 32 g/dL (31-37) Red Cell Distribution Width 16.6 % (11.5-14.5) Platelet Count 267 x10^3/uL (140-400) Neutrophils (%) (Auto) 88 % (31-73) Lymphocytes (%) (Auto) 7 % (24-48) Monocytes (%) (Auto) 5 % (0-9) Eosinophils (%) (Auto) 0 % (0-3) Basophils (%) (Auto) 0 % (0-3) Neutrophils # (Auto) 22.6 x10^3uL (1.8-7.7) Lymphocytes # (Auto) 1.7 x10^3/uL (1.0-4.8) Monocytes # (Auto) 1.3 x10^3/uL (0.0-1.1) Eosinophils # (Auto) 0.0 x10^3/uL (0.0-0.7) Basophils # (Auto) 0.0 x10^3/uL (0.0-0.2) Segmented Neutrophils % 83 % (35-66) Band Neutrophils % 9 % (0-9) Lymphocytes % 5 % (24-48) Monocytes % 3 % (0-10) Platelet Estimate Adequate (ADEQUATE) Poikilocytosis Mod Crenated Cell Present Schistocytes Few Activated Partial Thromboplast Time 99 SEC (24-38) Sodium Level 144 mmol/L (136-145) Potassium Level 5.1 mmol/L (3.5-5.1) Chloride Level 106 mmol/L (98-107) Carbon Dioxide Level 27 mmol/L (21-32) Anion Gap 11 (6-14) Blood Urea Nitrogen 25 mg/dL (7-20) Creatinine 1.8 mg/dL (0.6-1.0) Estimated GFR (Cockcroft-Gault) 33.2 Glucose Level 175 mg/dL (70-99) Calcium Level 8.9 mg/dL (8.5-10.1) Ionized Calcium 1.15 mmol/L (1.13-1.32) Phosphorus Level 8.3 mg/dL (2.6-4.7) Magnesium Level 3.1 mg/dL (1.8-2.4) Glucose (Fingerstick) 142 mg/dL (70-99) Test 12/20/18 23:14 12/21/18 00:16 12/21/18 06:02 12/21/18 08:21 Glucose (Fingerstick) 142 mg/dL (70-99) 146 mg/dL (70-99) 161 mg/dL (70-99) 142 mg/dL (70-99) Test 12/21/18 09:00 O2 Saturation 99 % (92-99) Arterial Blood pH 7.48 (7.35-7.45) Arterial Blood pCO2 at Patient Temp 26 mmHg (35-46) Arterial Blood pO2 at Patient Temp 207 mmHg (65-108) Arterial Blood HCO3 19 mmol/L (21-28) Arterial Blood Base Excess -3 mmol/L (-3-3) FiO2 40 Medications Active Scripts Medications Dose Route/Sig Max Daily Dose Days Date Category Levofloxacin 500 Mg Tablet 1 Tab PO DAILY 12/02/18 Reported Cyanocobalamin Injection (Cyanocobalamin (Vitamin B-12)) 1,000 Mcg/1 Ml Vial 1 Ml IM WEEKLY 12/02/18 Reported Pulmicort (Budesonide) 0.5 Mg/2 Ml Ampul.neb 1 Vial NEB BID 03/26/17 Rx Medrol (Methylprednisolone) 4 Mg Tab.ds.pk 1 Pkg PO UD 03/26/17 Rx Lisinopril 10 Mg Tablet 1 Tab PO DAILY 03/26/17 Rx Vitamin D (Cholecalciferol (Vitamin D3)) 50,000 Unit Capsule 50,000 Unit PO WEEKLY 03/25/17 Reported Cetirizine Hcl 10 Mg Tablet 1 Tab PO DAILY 03/25/17 Reported NITROGLYCERIN SubLingual (Nitroglycerin) 0.4 Mg Tab.subl 0.4 Mg SL PRN Q5MIN PRN 03/25/17 Reported Clopidogrel (Clopidogrel Bisulfate) 75 Mg Tablet 1 Tab PO DAILY 03/08/17 Reported Atorvastatin Calcium 40 Mg Tablet 1 Tab PO DAILY 03/08/17 Reported Aspirin Ec (Aspirin) 81 Mg Tablet.dr 1 Tab PO DAILY 03/08/17 Reported Tylenol (Acetaminophen) 325 Mg Tablet 2 Tab PO PRN Q6HRS PRN 03/08/17 Reported Ventolin Hfa Inhaler (Albuterol Sulfate) 18 Gm Hfa.aer.ad 2 Puff INH Q4HRS 12/12/16 Rx Flonase Allergy Relief (Fluticasone Propionate) 9.9 Ml [place].susp 1 Sprays NS DAILY 12/09/16 Reported Glipizide 10 Mg Tablet 0.05 Tab PO BID 12/09/16 Reported Dorzolamide Hcl 10 Ml Drops 1 Drop EACHEYE BID 12/09/16 Reported Latanoprost 2.5 Ml Drops 1 Drop EACHEYE QHS 12/09/16 Reported Impression . IMPRESSION: 1. Acute hypoxemic respiratory failure secondary to out of hospital cardiac arrest. 2. Out of hospital arrest suspect pulmonary in origin 3. Coronary artery disease with history of ischemic cardiomyopathy, ejection fraction 40% percent. Recent percutaneous transluminal coronary angioplasty to the left anterior descending back in 11/2018. 4. Hypertension. 5. Chronic systolic, diastolic heart failure. 6. Type 2 diabetes. 7. Chronic kidney disease. 8. ALLERGIES TO PENICILLIN, SULFA AND TRAMADOL. 9. Possible seizures 10. POSSIBLE ANOXIC BRAIN INJURY 11. NEGATIVE VENOUS DOPPLER LOWER EXT, CLINICAL SUSPICION FOR PE IS LOW Plan . SPOKE WITH AND SON D/C HEPARIN NG ASPIRATE WITH BLOODY SECRETIONS I AGREE WITH MAIN ISSUE WAS LOW 02 SAT LEADING TO ARREST WILL ASSESS MENTAL STATUS IN AM IF CLEAR THAN TRIAL ANTI BS PER ID D/W RN REPLACE K START TUBE FEEDING ARTURO DANIEL MD Dec 21, 2018 09:33
[2018-12-21 09:41] LABS: BASO % 0 % (0-3); EOS % 0 % (0-3); HEMATOCRIT 26.9 % (36.0-47.0); HEMOGLOBIN 8.5 g/dL (12.0-15.5); LYMPH # 1.1 x10^3/uL (1.0-4.8); LYMPH % 5 % (24-48); MEAN CORPUSCULAR HEMOGLOBIN 25 pg (25-35); MEAN CORPUSCULAR HGB CONC 32 g/dL (31-37); MEAN CORPUSCULAR VOLUME 79 fL (79-100); MONO # 1.4 x10^3/uL (0.0-1.1); MONO % 7 % (0-9); NEUT # 18.7 x10^3uL (1.8-7.7); NEUT % 88 % (31-73); PLATELET COUNT 193 x10^3/uL (140-400); RED BLOOD COUNT 3.42 x10^6/uL (3.50-5.40); RED CELL DISTRIBUTION WIDTH 16.3 % (11.5-14.5); WHITE BLOOD COUNT 21.2 x10^3/uL (4.0-11.0)
[2018-12-21 10:36] LABS: CALCIUM 8.6 mg/dL (8.5-10.1); CREATININE 2.3 mg/dL (0.6-1.0)
--- NOTE | 2018-12-21 12:09 | PDOC ---
CARDIO Progress Notes Date and Time Date of Service 12/21/18 Time of Evaluation 1205 Subjective Subjective: Other (sedated/intubated ) Vitals Vitals Vital Signs Date Time Temp Pulse Resp B/P (MAP) Pulse Ox O2 Delivery O2 Flow Rate FiO2 12/21/18 10:00 98.2 89 26 102/48 (66) 100 Ventilator 98.2 Weight Weight [ ] Input and Output Intake and Output Intake and Output 12/21/18 06:59 Intake Total 371.3 ml Output Total 720 ml Balance -348.7 ml Intake Oral 0 ml IV Total 371.3 ml Output Urine Total 720 ml Laboratory Labs Laboratory Tests Test 12/20/18 14:20 12/20/18 14:40 12/20/18 22:19 12/20/18 23:14 Urine Collection Type Unknown Urine Color Yellow Urine Clarity Clear Urine pH 5.5 Urine Specific [place] 1.020 Urine Protein >=300 mg/dL (NEG-TRACE) Urine Glucose (UA) 250 mg/dL (NEG) Urine Ketones (Stick) Trace mg/dL (NEG) Urine Blood Large (NEG) Urine Nitrite Negative (NEG) Urine Bilirubin Negative (NEG) Urine Urobilinogen Dipstick 0.2 mg/dL (0.2 mg/dL) Urine Leukocyte Esterase Negative (NEG) Urine RBC 20-40 /HPF (0-2) Urine WBC 1-4 /HPF (0-4) Urine Squamous Epithelial Cells Few /LPF Urine Bacteria Few /HPF (0-FEW) White Blood Count 25.6 x10^3/uL (4.0-11.0) Red Blood Count 4.13 x10^6/uL (3.50-5.40) Hemoglobin 10.4 g/dL (12.0-15.5) Hematocrit 32.4 % (36.0-47.0) Mean Corpuscular Volume 79 fL (79-100) Mean Corpuscular Hemoglobin 25 pg (25-35) Mean Corpuscular Hemoglobin Concent 32 g/dL (31-37) Red Cell Distribution Width 16.6 % (11.5-14.5) Platelet Count 267 x10^3/uL (140-400) Neutrophils (%) (Auto) 88 % (31-73) Lymphocytes (%) (Auto) 7 % (24-48) Monocytes (%) (Auto) 5 % (0-9) Eosinophils (%) (Auto) 0 % (0-3) Basophils (%) (Auto) 0 % (0-3) Neutrophils # (Auto) 22.6 x10^3uL (1.8-7.7) Lymphocytes # (Auto) 1.7 x10^3/uL (1.0-4.8) Monocytes # (Auto) 1.3 x10^3/uL (0.0-1.1) Eosinophils # (Auto) 0.0 x10^3/uL (0.0-0.7) Basophils # (Auto) 0.0 x10^3/uL (0.0-0.2) Segmented Neutrophils % 83 % (35-66) Band Neutrophils % 9 % (0-9) Lymphocytes % 5 % (24-48) Monocytes % 3 % (0-10) Platelet Estimate Adequate (ADEQUATE) Poikilocytosis Mod Crenated Cell Present Schistocytes Few Activated Partial Thromboplast Time 99 SEC (24-38) Sodium Level 144 mmol/L (136-145) Potassium Level 5.1 mmol/L (3.5-5.1) Chloride Level 106 mmol/L (98-107) Carbon Dioxide Level 27 mmol/L (21-32) Anion Gap 11 (6-14) Blood Urea Nitrogen 25 mg/dL (7-20) Creatinine 1.8 mg/dL (0.6-1.0) Estimated GFR (Cockcroft-Gault) 33.2 Glucose Level 175 mg/dL (70-99) Calcium Level 8.9 mg/dL (8.5-10.1) Ionized Calcium 1.15 mmol/L (1.13-1.32) Phosphorus Level 8.3 mg/dL (2.6-4.7) Magnesium Level 3.1 mg/dL (1.8-2.4) Glucose (Fingerstick) 142 mg/dL (70-99) 142 mg/dL (70-99) Test 12/21/18 00:16 12/21/18 06:02 12/21/18 08:21 12/21/18 09:00 Glucose (Fingerstick) 146 mg/dL (70-99) 161 mg/dL (70-99) 142 mg/dL (70-99) O2 Saturation 99 % (92-99) Arterial Blood pH 7.48 (7.35-7.45) Arterial Blood pCO2 at Patient Temp 26 mmHg (35-46) Arterial Blood pO2 at Patient Temp 207 mmHg (65-108) Arterial Blood HCO3 19 mmol/L (21-28) Arterial Blood Base Excess -3 mmol/L (-3-3) FiO2 40 Test 12/21/18 09:30 White Blood Count 21.2 x10^3/uL (4.0-11.0) Red Blood Count 3.42 x10^6/uL (3.50-5.40) Hemoglobin 8.5 g/dL (12.0-15.5) Hematocrit 26.9 % (36.0-47.0) Mean Corpuscular Volume 79 fL (79-100) Mean Corpuscular Hemoglobin 25 pg (25-35) Mean Corpuscular Hemoglobin Concent 32 g/dL (31-37) Red Cell Distribution Width 16.3 % (11.5-14.5) Platelet Count 193 x10^3/uL (140-400) Neutrophils (%) (Auto) 88 % (31-73) Lymphocytes (%) (Auto) 5 % (24-48) Monocytes (%) (Auto) 7 % (0-9) Eosinophils (%) (Auto) 0 % (0-3) Basophils (%) (Auto) 0 % (0-3) Neutrophils # (Auto) 18.7 x10^3uL (1.8-7.7) Lymphocytes # (Auto) 1.1 x10^3/uL (1.0-4.8) Monocytes # (Auto) 1.4 x10^3/uL (0.0-1.1) Eosinophils # (Auto) 0.0 x10^3/uL (0.0-0.7) Basophils # (Auto) 0.0 x10^3/uL (0.0-0.2) Sodium Level 142 mmol/L (136-145) Potassium Level 3.0 mmol/L (3.5-5.1) Chloride Level 104 mmol/L (98-107) Carbon Dioxide Level 20 mmol/L (21-32) Anion Gap 18 (6-14) Blood Urea Nitrogen 35 mg/dL (7-20) Creatinine 2.3 mg/dL (0.6-1.0) Estimated GFR (Cockcroft-Gault) 25.0 Glucose Level 193 mg/dL (70-99) Calcium Level 8.6 mg/dL (8.5-10.1) Microbiology Micro Microbiology 12/19/18 Blood Culture - Preliminary, Resulted NO GROWTH AFTER 1 DAY Physical Exam HEENT: Neck Supple W Full Motion Chest: Symmetric LUNGS: Other (mechanical ventilation) Heart: S1S2, RRR, other (distant heart tones) Abdomen: Other (soft) Extremities: No Edema Neurology: other (sedated) Assessment Assessment 1. PEA arrest; most probably pulm in etiology. 2. Acute respiratory failure. Initial concern for PE; heparin discontinued due to bloody aspirate per NG. LE US negative for DVT 3. Leukocytosis, lactic acidosis 4. Mild troponin elevation; highest 0.123. Most probably type II, demand ischemia secondary to above. 5. CAD s/p PCI/stent to RCA in 2012 and PCI/YEMI to the LAD and RCA 02/2017. Cath earlier this most with PTCA to LAD with mild disease to other major vessels 6. CM: EF at 35-40% compensated 7. Chronic systolic/diastolic CHF: compensated 8. USHA on CKD 9. Hypertension 10. DM, II/ HLP 11. Hypokalemia 12. Hypoxic/anoxic encephalopathy, jerking movements. On Keppra Recommendations Secondary prevention; DAPT with ASA/Effient Low-dose BB Hold ROSLYN with USHA Lasix PRN Lung optimization as per pulmonary Supportive care NAGA VASQUEZ APRN Dec 21, 2018 12:09
[2018-12-21] MEDS: POTASSIUM CHLORIDE 20 MEQ TABLET.ER. PO SCH ×2 (13:32→15:00)
--- NOTE | 2018-12-21 14:17 | PDOC ---
SUBJECTIVE ROS Unresponsive, No reflexes per RN OBJECTIVE Vital Signs Vital Signs Date Time Temp Pulse Resp B/P (MAP) Pulse Ox O2 Delivery O2 Flow Rate FiO2 12/21/18 13:00 98.7 12/21/18 13:00 90 25 100 Ventilator I & 0 Intake and Output 12/21/18 07:00 Intake Total 371.3 ml Output Total 695 ml Balance -323.7 ml Intake Oral 0 ml IV Total 371.3 ml Output Urine Total 695 ml PHYSICAL EXAM Physical Exam GENERAL: eyes rolled back, HEENT: OGT and ETT in place. LUNGS: Clear anteriorly. HEART: S1, S2 regular. ABDOMEN: Soft, bowel sounds present. GENITOURINARY: Bertrand in place. EXTREMITIES: Trace edema, no cyanosis. NEUROLOGIC: Unresponsive/ DIAGNOSIS/ASSESSMENT Assessment & Plan USHA - Status post code blue Supportive care Chronic kidney disease stage III: Unclear etiology. Presume a diabetic hypertensive nephrosclerosis [facility] [place] Chr med disease Status post outside code blue. Acute respiratory failure. Seizure-like activity. Anoxic brain injury Awaiting Neurology recommendations Coronary artery disease, status post PTCA on 11/30. Poor Prognosis COMMENT/RELEVANT DATA Meds Current Medications Medications (Trade) Dose Ordered Sig/Tangela Start Time Stop Time Status Last Admin Dose Admin Acetaminophen (Tylenol) 650 mg Q4H 12/19/18 19:00 Albuterol Sulfate (Ventolin Neb Soln) 2.5 mg STK-MED ONCE 12/19/18 18:03 12/19/18 18:04 DC Albuterol/ Ipratropium (Duoneb) 3 ml STK-MED ONCE 12/20/18 06:17 12/20/18 06:18 DC Artificial Tears (Artificial Tears) 1 drop PRN Q15MIN PRN 12/19/18 18:15 Aspirin (Children'S Aspirin) 81 mg DAILYWBKFT 12/20/18 09:30 12/21/18 08:18 81 MG Bisacodyl (Dulcolax Supp) 10 mg PRN DAILY PRN 12/19/18 18:30 Budesonide (Pulmicort) 0.5 mg STK-MED ONCE 12/20/18 06:17 12/20/18 06:18 DC Buspirone HCl (Buspar) 30 mg Q8H 12/19/18 19:00 12/21/18 11:01 DC Dobutamine HCl/ Dextrose 250 ml @ 0 mls/hr CONT PRN 12/19/18 19:00 Epinephrine HCl 8 mg/Sodium Chloride 250 ml @ 0 mls/hr CONT PRN 12/19/18 17:45 12/19/18 19:13 18.75 MLS/HR Famotidine (Pepcid Vial) 20 mg QHS 12/19/18 21:00 12/20/18 15:25 DC 12/19/18 21:22 20 MG Fentanyl Citrate 30 ml @ 2.5 mls/hr CONT PRN 12/19/18 18:15 12/21/18 05:53 2.5 MLS/HR Fentanyl Citrate (Fentanyl 2ml Vial) 100 mcg 1X ONCE 12/19/18 18:15 12/19/18 18:34 DC Heparin Sodium (Porcine) (Heparin Sodium) 1,150 unit PRN Q6HRS PRN 12/19/18 21:00 12/20/18 18:36 DC Heparin Sodium/ Dextrose 500 ml @ 0 mls/hr CONT PRN 12/19/18 21:00 12/20/18 18:36 DC Levetiracetam 1000 mg/Dextrose 110 ml @ 440 mls/hr 1X ONCE 12/20/18 14:30 12/20/18 14:44 DC 12/20/18 14:39 440 MLS/HR Levetiracetam 500 mg/Dextrose 105 ml @ 420 mls/hr Q12HR 12/20/18 21:00 12/21/18 08:18 420 MLS/HR Levofloxacin/ Dextrose 50 ml @ 50 mls/hr Q24H 12/19/18 20:00 12/20/18 11:16 DC 12/19/18 20:11 50 MLS/HR Linezolid/Dextrose 300 ml @ 300 mls/hr Q12HR 12/19/18 21:00 12/20/18 11:16 DC 12/20/18 09:47 300 MLS/HR Lorazepam (Ativan Inj) 2 mg PRN Q4HRS PRN 12/19/18 19:15 12/21/18 00:14 2 MG Meropenem 500 mg/ Sodium Chloride 50 ml @ 100 mls/hr Q12HR 12/19/18 20:00 12/21/18 08:18 100 MLS/HR Methylprednisolone Sodium Succinate (SOLU-Medrol 125MG VIAL) 100 mg 1X ONCE 12/19/18 18:45 12/19/18 18:46 DC 12/19/18 19:10 100 MG Midazolam HCl 100 ml @ 0 mls/hr CONT PRN 12/19/18 18:15 Midazolam HCl (Versed) 2 mg 1X ONCE 12/19/18 18:15 12/19/18 18:34 DC Norepinephrine Bitartrate 250 ml @ 0 mls/hr CONT PRN 12/19/18 19:00 Ondansetron HCl (Zofran) 4 mg PRN Q6HRS PRN 12/19/18 18:30 Pantoprazole Sodium (PROTONIX VIAL for IV PUSH) 40 mg DAILYAC 12/20/18 15:30 12/21/18 08:18 40 MG Potassium Phosphate 13.6 mmol/Sodium Chloride 104.5333 ml @ 52.267 m... Q2H 12/20/18 10:00 12/20/18 15:59 DC 12/20/18 13:36 52.267 MLS/HR Potassium Chloride (Klor-Con) 40 meq Q2H 12/21/18 13:00 12/21/18 15:01 12/21/18 13:32 40 MEQ Prasugrel (Effient) 10 mg DAILYWBKFT 12/20/18 09:30 12/21/18 08:18 10 MG Propofol 100 ml @ 0 mls/hr CONT PRN 12/19/18 18:15 12/21/18 00:13 2.7 MLS/HR Sodium Chloride 500 ml @ 1,000 mls/hr PRN Q30MIN PRN 12/19/18 19:00 Sodium Chloride (Normal Saline Flush) 3 ml QSHIFT PRN 12/19/18 18:30 Vecuronium [place] (Norcuron Bolus) 5 mg PRN Q1HR PRN 12/19/18 18:15 Lab Laboratory Tests Test 12/20/18 14:20 12/20/18 14:40 12/20/18 22:19 12/20/18 23:14 Urine Collection Type Unknown Urine Color Yellow Urine Clarity Clear Urine pH 5.5 Urine Specific [place] 1.020 Urine Protein >=300 mg/dL (NEG-TRACE) Urine Glucose (UA) 250 mg/dL (NEG) Urine Ketones (Stick) Trace mg/dL (NEG) Urine Blood Large (NEG) Urine Nitrite Negative (NEG) Urine Bilirubin Negative (NEG) Urine Urobilinogen Dipstick 0.2 mg/dL (0.2 mg/dL) Urine Leukocyte Esterase Negative (NEG) Urine RBC 20-40 /HPF (0-2) Urine WBC 1-4 /HPF (0-4) Urine Squamous Epithelial Cells Few /LPF Urine Bacteria Few /HPF (0-FEW) White Blood Count 25.6 x10^3/uL (4.0-11.0) Red Blood Count 4.13 x10^6/uL (3.50-5.40) Hemoglobin 10.4 g/dL (12.0-15.5) Hematocrit 32.4 % (36.0-47.0) Mean Corpuscular Volume 79 fL (79-100) Mean Corpuscular Hemoglobin 25 pg (25-35) Mean Corpuscular Hemoglobin Concent 32 g/dL (31-37) Red Cell Distribution Width 16.6 % (11.5-14.5) Platelet Count 267 x10^3/uL (140-400) Neutrophils (%) (Auto) 88 % (31-73) Lymphocytes (%) (Auto) 7 % (24-48) Monocytes (%) (Auto) 5 % (0-9) Eosinophils (%) (Auto) 0 % (0-3) Basophils (%) (Auto) 0 % (0-3) Neutrophils # (Auto) 22.6 x10^3uL (1.8-7.7) Lymphocytes # (Auto) 1.7 x10^3/uL (1.0-4.8) Monocytes # (Auto) 1.3 x10^3/uL (0.0-1.1) Eosinophils # (Auto) 0.0 x10^3/uL (0.0-0.7) Basophils # (Auto) 0.0 x10^3/uL (0.0-0.2) Segmented Neutrophils % 83 % (35-66) Band Neutrophils % 9 % (0-9) Lymphocytes % 5 % (24-48) Monocytes % 3 % (0-10) Platelet Estimate Adequate (ADEQUATE) Poikilocytosis Mod Crenated Cell Present Schistocytes Few Activated Partial Thromboplast Time 99 SEC (24-38) Sodium Level 144 mmol/L (136-145) Potassium Level 5.1 mmol/L (3.5-5.1) Chloride Level 106 mmol/L (98-107) Carbon Dioxide Level 27 mmol/L (21-32) Anion Gap 11 (6-14) Blood Urea Nitrogen 25 mg/dL (7-20) Creatinine 1.8 mg/dL (0.6-1.0) Estimated GFR (Cockcroft-Gault) 33.2 Glucose Level 175 mg/dL (70-99) Calcium Level 8.9 mg/dL (8.5-10.1) Ionized Calcium 1.15 mmol/L (1.13-1.32) Phosphorus Level 8.3 mg/dL (2.6-4.7) Magnesium Level 3.1 mg/dL (1.8-2.4) Glucose (Fingerstick) 142 mg/dL (70-99) 142 mg/dL (70-99) Test 12/21/18 00:16 12/21/18 06:02 12/21/18 08:21 12/21/18 09:00 Glucose (Fingerstick) 146 mg/dL (70-99) 161 mg/dL (70-99) 142 mg/dL (70-99) O2 Saturation 99 % (92-99) Arterial Blood pH 7.48 (7.35-7.45) Arterial Blood pCO2 at Patient Temp 26 mmHg (35-46) Arterial Blood pO2 at Patient Temp 207 mmHg (65-108) Arterial Blood HCO3 19 mmol/L (21-28) Arterial Blood Base Excess -3 mmol/L (-3-3) FiO2 40 Test 12/21/18 09:30 White Blood Count 21.2 x10^3/uL (4.0-11.0) Red Blood Count 3.42 x10^6/uL (3.50-5.40) Hemoglobin 8.5 g/dL (12.0-15.5) Hematocrit 26.9 % (36.0-47.0) Mean Corpuscular Volume 79 fL (79-100) Mean Corpuscular Hemoglobin 25 pg (25-35) Mean Corpuscular Hemoglobin Concent 32 g/dL (31-37) Red Cell Distribution Width 16.3 % (11.5-14.5) Platelet Count 193 x10^3/uL (140-400) Neutrophils (%) (Auto) 88 % (31-73) Lymphocytes (%) (Auto) 5 % (24-48) Monocytes (%) (Auto) 7 % (0-9) Eosinophils (%) (Auto) 0 % (0-3) Basophils (%) (Auto) 0 % (0-3) Neutrophils # (Auto) 18.7 x10^3uL (1.8-7.7) Lymphocytes # (Auto) 1.1 x10^3/uL (1.0-4.8) Monocytes # (Auto) 1.4 x10^3/uL (0.0-1.1) Eosinophils # (Auto) 0.0 x10^3/uL (0.0-0.7) Basophils # (Auto) 0.0 x10^3/uL (0.0-0.2) Sodium Level 142 mmol/L (136-145) Potassium Level 3.0 mmol/L (3.5-5.1) Chloride Level 104 mmol/L (98-107) Carbon Dioxide Level 20 mmol/L (21-32) Anion Gap 18 (6-14) Blood Urea Nitrogen 35 mg/dL (7-20) Creatinine 2.3 mg/dL (0.6-1.0) Estimated GFR (Cockcroft-Gault) 25.0 Glucose Level 193 mg/dL (70-99) Calcium Level 8.6 mg/dL (8.5-10.1) Magnesium Level 3.3 mg/dL (1.8-2.4) Results All relevant outside records, renal labs, imaging studies, telemetry/EKG's were reviewed. Other Bilaterally increased cortical echogenicity is consistent with intrinsic renal disease. The left kidney measures slightly small consistent with mild atrophy. No hydronephrosis. HELGA STAPLETON MD Dec 21, 2018 14:17
--- NOTE | 2018-12-21 14:23 | PDOC ---
PROGRESS NOTES Assessment Assessment IMPRESSION: Hypoxia/anoxia encephalopathy. metabolic encephalopathy. Respiratory failure. S/p cardiopulmonary arrest, downtime > 5 minutes. Abnormal jerk or myoclonic movements. CAD. COPD. HTN. HLD. CKD. RECOMMENDATIONS/PLAN: Continue life support in ICU. Continue Keppra 500 mg IV q12h. HCT when stable. Treat medical diseases. Discussed with her and son at bedside in ICU on 12-21-18. PAST MEDICAL HISTORY: Coronary artery disease, status post recent balloon angioplasty. Hypertension. Hyperlipidemia. Chronic kidney disease. Bronchitis. Chronic obstructive pulmonary disease. ALLERGIES: PENICILLINS, SULFA AND TRAMADOL. FAMILY HISTORY: Hypertension. SOCIAL HISTORY: She lives with her . She denied smoking tobacco, drinking alcohol or using recreational drugs. MEDICATIONS: Refer to MAR REVIEW OF SYSTEMS: Constitutional: No malnutrition, weight loss, cachexia. Head: No traumatic brain or head injury. Skin: No edema, or rash. Ear: No infection. Eyes: No vision loss, or diplopia. Nose: No bleeding or purulent discharges. Hearing: No hearing decrease. Neck: No injury. Breast: No history of cancer, masses, or discharges. Cardiac: CAD, HTN, HLD Pulmonary: COPD. GI: No GI Ulcer, GI bleeding Urinary/genital: UTI. Endocrine: No cousin face, craniofacial dysmorphism. Skeletomuscular: No muscular atrophy. Neurological: see HP. Psychiatric: Denies drug use/abuse. Otherwise, not [id number] review of systems. PHYSICAL EXAMINATION: General appearance in subacute distress. HEENT: Normocephalic and nontraumatic. Eyes, nose, ears, and throat are unremarkable. Neck is supple. No lymphadenopathy. No Crepitus. Cardiovascular: S1, S2, regular rate and rhythm. Pulmonary: On vent Abdomen: Bowel sounds are positive. Extremities: No rash, lesions. No restriction of range of motion NEUROLOGICAL EXAMINATION: Unresponsive. Not oriented to time, place and person. PERRL. EOMI not elicited. CN: no focal findings. Muscle tone: decreased.. Muscle strength: no movements observed to stimuli. DTR: 0-1 Plantar reflex: No response bilaterally Gait: not able to walk. Sensory exam: no response to stimuli. Not able to access cerebellar signs at the present time. F-T-N test not performed. Objective Objective Vital Signs Date Time Temp Pulse Resp B/P (MAP) Pulse Ox O2 Delivery O2 Flow Rate FiO2 12/21/18 13:00 98.7 12/21/18 13:00 90 25 100 Ventilator Intake and Output 12/21/18 07:00 Intake Total 371.3 ml Output Total 695 ml Balance -323.7 ml Intake Oral 0 ml IV Total 371.3 ml Output Urine Total 695 ml Vitals Signs Vitals VS - Last 72 Hours, by Label Date Time Temp Pulse Resp B/P (MAP) Pulse Ox O2 Delivery O2 Flow Rate FiO2 12/21/18 13:00 98.7 12/21/18 13:00 98.7 90 25 105/41 (62) 100 Ventilator 98.7 12/21/18 12:26 100 Ventilator 12/21/18 12:00 98.6 12/21/18 12:00 98.6 86 25 111/52 (71) 100 Ventilator 98.6 12/21/18 12:00 Mechanical Ventilator 12/21/18 11:00 98.6 88 25 105/43 (63) 100 Ventilator 98.6 12/21/18 11:00 98.6 12/21/18 10:00 98.2 12/21/18 10:00 98.2 89 26 102/48 (66) 100 Ventilator 98.2 12/21/18 09:43 100 Ventilator 12/21/18 09:00 97.5 12/21/18 09:00 97.5 84 25 114/57 (76) 100 Ventilator 97.5 12/21/18 08:51 100 Ventilator 12/21/18 08:00 Mechanical Ventilator 12/21/18 08:00 97.2 12/21/18 08:00 97.3 84 25 98/53 (68) 100 Ventilator 97.3 12/21/18 07:00 97.0 12/21/18 07:00 80 25 99/64 (76) 100 Ventilator 12/21/18 06:33 26 100 Ventilator 12/21/18 06:00 79 26 83/62 (69) 100 Ventilator 12/21/18 06:00 96.4 12/21/18 05:53 26 100 Ventilator 12/21/18 05:49 100 Ventilator 12/21/18 05:00 78 26 120/90 (100) 100 Ventilator 12/21/18 05:00 96.0 12/21/18 04:00 95.5 12/21/18 04:00 80 26 128/56 (80) 100 Ventilator 12/21/18 04:00 Mechanical Ventilator 12/21/18 03:40 100 Ventilator 12/21/18 03:00 77 26 97/46 (63) 100 Ventilator 12/21/18 03:00 94.6 12/21/18 02:00 94.2 12/21/18 02:00 84 26 101/45 (63) 100 Ventilator 12/21/18 01:00 94.2 12/21/18 01:00 73 26 75/46 (56) 100 Ventilator 12/21/18 00:30 100 Ventilator 12/21/18 00:00 Mechanical Ventilator 12/21/18 00:00 93.4 12/21/18 00:00 62 26 115/57 (76) 100 Ventilator 12/20/18 23:00 74 26 113/82 (92) 100 Ventilator 12/20/18 23:00 93.0 12/20/18 22:00 92.8 12/20/18 22:00 75 26 124/57 (79) 100 Ventilator 12/20/18 21:00 92.5 12/20/18 21:00 77 26 92/51 (65) 100 Ventilator 12/20/18 20:00 77 26 109/69 (82) 100 Ventilator 12/20/18 20:00 Mechanical Ventilator 12/20/18 20:00 91.7 12/20/18 19:59 100 Ventilator 12/20/18 19:58 100 Ventilator 12/20/18 19:00 76 26 121/50 (73) 100 Ventilator 12/20/18 19:00 91.6 12/20/18 18:07 100 Ventilator 12/20/18 18:00 91.7 12/20/18 18:00 68 26 139/51 (80) 100 Ventilator 12/20/18 17:00 66 26 110/57 (74) 100 Ventilator 12/20/18 17:00 91.7 12/20/18 16:41 100 12/20/18 16:00 69 26 106/58 (74) 100 Ventilator 12/20/18 16:00 Mechanical Ventilator 12/20/18 16:00 91.7 12/20/18 15:19 100 Ventilator 12/20/18 15:00 92.0 12/20/18 15:00 68 26 155/60 (91) 100 Ventilator 12/20/18 14:00 91.9 12/20/18 14:00 66 26 151/60 (90) 100 Ventilator 12/20/18 13:00 65 26 86/55 (65) 100 Ventilator 12/20/18 13:00 91.7 12/20/18 12:34 100 Ventilator 12/20/18 12:00 Mechanical Ventilator 12/20/18 12:00 92.0 12/20/18 12:00 62 26 152/55 (87) 100 Ventilator 12/20/18 11:00 92.0 12/20/18 11:00 63 26 162/57 (92) 100 Ventilator 12/20/18 10:18 100 Ventilator 12/20/18 10:00 56 26 155/57 (89) 100 Ventilator 12/20/18 10:00 91.7 12/20/18 09:00 91.5 12/20/18 09:00 55 20 132/55 (80) 100 Ventilator 12/20/18 08:13 100 Ventilator 12/20/18 08:00 Mechanical Ventilator 12/20/18 08:00 91.5 12/20/18 08:00 55 20 133/60 (84) 100 Ventilator 12/20/18 07:00 50 20 112/54 (73) 100 Ventilator 12/20/18 07:00 91.5 Laboratory Laboratory Laboratory Tests Test 12/20/18 14:20 12/20/18 14:40 12/20/18 22:19 12/20/18 23:14 Urine Collection Type Unknown Urine Color Yellow Urine Clarity Clear Urine pH 5.5 Urine Specific [place] 1.020 Urine Protein >=300 mg/dL (NEG-TRACE) Urine Glucose (UA) 250 mg/dL (NEG) Urine Ketones (Stick) Trace mg/dL (NEG) Urine Blood Large (NEG) Urine Nitrite Negative (NEG) Urine Bilirubin Negative (NEG) Urine Urobilinogen Dipstick 0.2 mg/dL (0.2 mg/dL) Urine Leukocyte Esterase Negative (NEG) Urine RBC 20-40 /HPF (0-2) Urine WBC 1-4 /HPF (0-4) Urine Squamous Epithelial Cells Few /LPF Urine Bacteria Few /HPF (0-FEW) White Blood Count 25.6 x10^3/uL (4.0-11.0) Red Blood Count 4.13 x10^6/uL (3.50-5.40) Hemoglobin 10.4 g/dL (12.0-15.5) Hematocrit 32.4 % (36.0-47.0) Mean Corpuscular Volume 79 fL (79-100) Mean Corpuscular Hemoglobin 25 pg (25-35) Mean Corpuscular Hemoglobin Concent 32 g/dL (31-37) Red Cell Distribution Width 16.6 % (11.5-14.5) Platelet Count 267 x10^3/uL (140-400) Neutrophils (%) (Auto) 88 % (31-73) Lymphocytes (%) (Auto) 7 % (24-48) Monocytes (%) (Auto) 5 % (0-9) Eosinophils (%) (Auto) 0 % (0-3) Basophils (%) (Auto) 0 % (0-3) Neutrophils # (Auto) 22.6 x10^3uL (1.8-7.7) Lymphocytes # (Auto) 1.7 x10^3/uL (1.0-4.8) Monocytes # (Auto) 1.3 x10^3/uL (0.0-1.1) Eosinophils # (Auto) 0.0 x10^3/uL (0.0-0.7) Basophils # (Auto) 0.0 x10^3/uL (0.0-0.2) Segmented Neutrophils % 83 % (35-66) Band Neutrophils % 9 % (0-9) Lymphocytes % 5 % (24-48) Monocytes % 3 % (0-10) Platelet Estimate Adequate (ADEQUATE) Poikilocytosis Mod Crenated Cell Present Schistocytes Few Activated Partial Thromboplast Time 99 SEC (24-38) Sodium Level 144 mmol/L (136-145) Potassium Level 5.1 mmol/L (3.5-5.1) Chloride Level 106 mmol/L (98-107) Carbon Dioxide Level 27 mmol/L (21-32) Anion Gap 11 (6-14) Blood Urea Nitrogen 25 mg/dL (7-20) Creatinine 1.8 mg/dL (0.6-1.0) Estimated GFR (Cockcroft-Gault) 33.2 Glucose Level 175 mg/dL (70-99) Calcium Level 8.9 mg/dL (8.5-10.1) Ionized Calcium 1.15 mmol/L (1.13-1.32) Phosphorus Level 8.3 mg/dL (2.6-4.7) Magnesium Level 3.1 mg/dL (1.8-2.4) Glucose (Fingerstick) 142 mg/dL (70-99) 142 mg/dL (70-99) Test 12/21/18 00:16 12/21/18 06:02 12/21/18 08:21 12/21/18 09:00 Glucose (Fingerstick) 146 mg/dL (70-99) 161 mg/dL (70-99) 142 mg/dL (70-99) O2 Saturation 99 % (92-99) Arterial Blood pH 7.48 (7.35-7.45) Arterial Blood pCO2 at Patient Temp 26 mmHg (35-46) Arterial Blood pO2 at Patient Temp 207 mmHg (65-108) Arterial Blood HCO3 19 mmol/L (21-28) Arterial Blood Base Excess -3 mmol/L (-3-3) FiO2 40 Test 12/21/18 09:30 White Blood Count 21.2 x10^3/uL (4.0-11.0) Red Blood Count 3.42 x10^6/uL (3.50-5.40) Hemoglobin 8.5 g/dL (12.0-15.5) Hematocrit 26.9 % (36.0-47.0) Mean Corpuscular Volume 79 fL (79-100) Mean Corpuscular Hemoglobin 25 pg (25-35) Mean Corpuscular Hemoglobin Concent 32 g/dL (31-37) Red Cell Distribution Width 16.3 % (11.5-14.5) Platelet Count 193 x10^3/uL (140-400) Neutrophils (%) (Auto) 88 % (31-73) Lymphocytes (%) (Auto) 5 % (24-48) Monocytes (%) (Auto) 7 % (0-9) Eosinophils (%) (Auto) 0 % (0-3) Basophils (%) (Auto) 0 % (0-3) Neutrophils # (Auto) 18.7 x10^3uL (1.8-7.7) Lymphocytes # (Auto) 1.1 x10^3/uL (1.0-4.8) Monocytes # (Auto) 1.4 x10^3/uL (0.0-1.1) Eosinophils # (Auto) 0.0 x10^3/uL (0.0-0.7) Basophils # (Auto) 0.0 x10^3/uL (0.0-0.2) Sodium Level 142 mmol/L (136-145) Potassium Level 3.0 mmol/L (3.5-5.1) Chloride Level 104 mmol/L (98-107) Carbon Dioxide Level 20 mmol/L (21-32) Anion Gap 18 (6-14) Blood Urea Nitrogen 35 mg/dL (7-20) Creatinine 2.3 mg/dL (0.6-1.0) Estimated GFR (Cockcroft-Gault) 25.0 Glucose Level 193 mg/dL (70-99) Calcium Level 8.6 mg/dL (8.5-10.1) Magnesium Level 3.3 mg/dL (1.8-2.4) Microbiology 12/19/18 Blood Culture - Preliminary, Resulted NO GROWTH AFTER 1 DAY Medication Medications Current Medications Levetiracetam 1000 mg/Dextrose 110 ml @ 440 mls/hr 1X ONCE IV Last administered on 12/20/18at 14:39; Start 12/20/18 at 14:30; Stop 12/20/18 at 14:44; Status DC Levetiracetam 500 mg/Dextrose 105 ml @ 420 mls/hr Q12HR IV Last administered on 12/21/18at 08:18; Start 12/20/18 at 21:00 Pantoprazole Sodium (PROTONIX VIAL for IV PUSH) 40 mg DAILYAC IVP Last administered on 12/21/18at 08:18; Start 12/20/18 at 15:30 Potassium Chloride (Klor-Con) 40 meq Q2H PO Last administered on 12/21/18at 13:32; Start 12/21/18 at 13:00; Stop 12/21/18 at 15:01 Comment Review of Relevant I have reviewed the following items glo (where applicable) has been applied. GLEN AIKEN MD Dec 21, 2018 14:23
[2018-12-21] MEDS: METOPROLOL TART IMMED RELEASE 25 MG TABLET. PO SCH (21:30)
[2018-12-22] VITALS (24 sets, daily range): BP systolic 109–170; BP diastolic 44–65
[2018-12-22 03:51] LABS: BASO % 0 % (0-3); EOS % 0 % (0-3); HEMATOCRIT 24.9 % (36.0-47.0); HEMOGLOBIN 8.2 g/dL (12.0-15.5); LYMPH # 0.3 x10^3/uL (1.0-4.8); LYMPH % 2 % (24-48); MEAN CORPUSCULAR HEMOGLOBIN 25 pg (25-35); MEAN CORPUSCULAR HGB CONC 33 g/dL (31-37); MEAN CORPUSCULAR VOLUME 77 fL (79-100); MONO # 0.7 x10^3/uL (0.0-1.1); MONO % 3 % (0-9); NEUT % 95 % (31-73); PLATELET COUNT 192 x10^3/uL (140-400); RED BLOOD COUNT 3.25 x10^6/uL (3.50-5.40); RED CELL DISTRIBUTION WIDTH 16.8 % (11.5-14.5)
[2018-12-22 04:21] LABS: ALBUMIN 2.6 g/dL (3.4-5.0); ALBUMIN/GLOBULIN RATIO 0.8 (1.0-1.7); CALCIUM 8.1 mg/dL (8.5-10.1); CREATININE 2.8 mg/dL (0.6-1.0); GFR 19.9; POTASSIUM 3.9 mmol/L (3.5-5.1); TOTAL BILIRUBIN 0.3 mg/dL (0.2-1.0); TOTAL PROTEIN 5.8 g/dL (6.4-8.2)
[2018-12-22] MEDS: POLYVINYL ALCOHOL 1.4% OPHTH SOLUTION 15ML BOTTLE. OU SCH ×4 (05:37→23:57)
[2018-12-22] MEDS: methylPREDNISolone SOD SUCC PF 125 MG/2 ML VIAL. IV SCH ×3 (05:38→21:49)
[2018-12-22] MEDS: IPRATRPIUM/ALBUTEROL 0.5/2.5MG 3 ML NEBU. NEB SCH ×4 (07:46→19:53)
[2018-12-22] MEDS: BUDESONIDE 0.5 MG/2 ML NEBU. NEB SCH ×2 (07:47→19:53)
[2018-12-22 07:59] LABS: BASE EXCESS ABG -4 mmol/L (-3-3); HCO3 ABG 20 mmol/L (21-28); PCO2 ABG 31 mmHg (35-46); PO2 ABG 173 mmHg (65-108); SAT O2 ABG 99 % (92-99)
--- NOTE | 2018-12-22 08:03 | PDOC ---
Infectious Disease Note Subjective Subjective pt is unresponsive ROS ROS no n/v/d/ Vital Sign Vital Signs Vital Signs Date Time Temp Pulse Resp B/P (MAP) Pulse Ox O2 Delivery O2 Flow Rate FiO2 12/22/18 07:47 100 Ventilator 12/22/18 06:00 100.0 87 26 133/47 (75) 100.0 Physical Exam PHYSICAL EXAM GENERAL: The patient is in bed, her eyes were rolled back, and she is exhibiting rhythmic facial movements. HEENT: Pupils equally small. OGT and ETT in place. LUNGS: Clear anteriorly. HEART: S1, S2 regular. ABDOMEN: Soft, bowel sounds present. GENITOURINARY: Bertrand in place. EXTREMITIES: Trace edema, no cyanosis. SKIN: Cold. She has a cooling device in place. NEUROLOGIC: Unresponsive/sedated. Labs Lab Laboratory Tests Test 12/21/18 08:21 12/21/18 09:00 12/21/18 09:30 12/22/18 03:25 Glucose (Fingerstick) 142 mg/dL (70-99) O2 Saturation 99 % (92-99) Arterial Blood pH 7.48 (7.35-7.45) Arterial Blood pCO2 at Patient Temp 26 mmHg (35-46) Arterial Blood pO2 at Patient Temp 207 mmHg (65-108) Arterial Blood HCO3 19 mmol/L (21-28) Arterial Blood Base Excess -3 mmol/L (-3-3) FiO2 40 White Blood Count 21.2 x10^3/uL (4.0-11.0) 21.0 x10^3/uL (4.0-11.0) Red Blood Count 3.42 x10^6/uL (3.50-5.40) 3.25 x10^6/uL (3.50-5.40) Hemoglobin 8.5 g/dL (12.0-15.5) 8.2 g/dL (12.0-15.5) Hematocrit 26.9 % (36.0-47.0) 24.9 % (36.0-47.0) Mean Corpuscular Volume 79 fL (79-100) 77 fL (79-100) Mean Corpuscular Hemoglobin 25 pg (25-35) 25 pg (25-35) Mean Corpuscular Hemoglobin Concent 32 g/dL (31-37) 33 g/dL (31-37) Red Cell Distribution Width 16.3 % (11.5-14.5) 16.8 % (11.5-14.5) Platelet Count 193 x10^3/uL (140-400) 192 x10^3/uL (140-400) Neutrophils (%) (Auto) 88 % (31-73) 95 % (31-73) Lymphocytes (%) (Auto) 5 % (24-48) 2 % (24-48) Monocytes (%) (Auto) 7 % (0-9) 3 % (0-9) Eosinophils (%) (Auto) 0 % (0-3) 0 % (0-3) Basophils (%) (Auto) 0 % (0-3) 0 % (0-3) Neutrophils # (Auto) 18.7 x10^3uL (1.8-7.7) 20.0 x10^3uL (1.8-7.7) Lymphocytes # (Auto) 1.1 x10^3/uL (1.0-4.8) 0.3 x10^3/uL (1.0-4.8) Monocytes # (Auto) 1.4 x10^3/uL (0.0-1.1) 0.7 x10^3/uL (0.0-1.1) Eosinophils # (Auto) 0.0 x10^3/uL (0.0-0.7) 0.0 x10^3/uL (0.0-0.7) Basophils # (Auto) 0.0 x10^3/uL (0.0-0.2) 0.0 x10^3/uL (0.0-0.2) Sodium Level 142 mmol/L (136-145) 140 mmol/L (136-145) Potassium Level 3.0 mmol/L (3.5-5.1) 3.9 mmol/L (3.5-5.1) Chloride Level 104 mmol/L (98-107) 104 mmol/L (98-107) Carbon Dioxide Level 20 mmol/L (21-32) 21 mmol/L (21-32) Anion Gap 18 (6-14) 15 (6-14) Blood Urea Nitrogen 35 mg/dL (7-20) 47 mg/dL (7-20) Creatinine 2.3 mg/dL (0.6-1.0) 2.8 mg/dL (0.6-1.0) Estimated GFR (Cockcroft-Gault) 25.0 19.9 Glucose Level 193 mg/dL (70-99) 262 mg/dL (70-99) Calcium Level 8.6 mg/dL (8.5-10.1) 8.1 mg/dL (8.5-10.1) Magnesium Level 3.3 mg/dL (1.8-2.4) BUN/Creatinine Ratio 17 (6-20) Total Bilirubin 0.3 mg/dL (0.2-1.0) Aspartate Amino Transf (AST/SGOT) 119 U/L (15-37) Alanine Aminotransferase (ALT/SGPT) 35 U/L (14-59) Alkaline Phosphatase 69 U/L (46-116) Total Protein 5.8 g/dL (6.4-8.2) Albumin 2.6 g/dL (3.4-5.0) Albumin/Globulin Ratio 0.8 (1.0-1.7) Micro Microbiology 12/19/18 Blood Culture - Preliminary, Resulted NO GROWTH AFTER 1 DAY Objective Assessment 1. Status post outside code blue. 2. Induced hypothermia. 3. Leukocytosis. 4. PENICILLIN AND SULFA ALLERGY. 5. Acute respiratory failure. 6. Seizure-like activity. Anoxic brain injury 7. Lactic acidosis, resolved. 8. Coronary artery disease, status post PTCA on 11/30. 9. Chronic kidney disease. 10. Diabetes. Plan Plan of Care on meropenem supportive care prognosis poor BIANCA DOYLE MD Dec 22, 2018 08:02
[2018-12-22] MEDS: levETIRAcetam 500 MG in IV DEXTROSE 5% 100ML 100 ML IV SCH ×2 (08:34→20:35)
[2018-12-22] MEDS: PANTOPRAZOLE IV PUSH 40 MG VIAL. IVP SCH (08:34)
[2018-12-22] MEDS: ASPIRIN CHEWABLE 81 MG TABLET. PO SCH (08:35)
[2018-12-22] MEDS: PRASUGREL 10 MG TABLET. PO SCH (08:35)
[2018-12-22] MEDS: METOPROLOL TART IMMED RELEASE 25 MG TABLET. PO SCH ×2 (08:35→21:09)
[2018-12-22] MEDS: MEROPENEM 500 MG in IV NORMAL SALINE 50ML 50 ML IV SCH ×2 (08:36→21:09)
--- NOTE | 2018-12-22 08:38 | PDOC ---
PULMONARY PROGRESS NOTES Subjective PT OFF SEDATION SINCE 70 am NOW ON AC MODE Vitals Vital Signs Date Time Temp Pulse Resp B/P (MAP) Pulse Ox O2 Delivery O2 Flow Rate FiO2 12/22/18 08:35 102 158/59 12/22/18 08:00 99.7 25 100 Ventilator 99.7 HEENT: Other Lungs: Clear Cardiovascular: S1, S2 Abdomen: Soft Extremities: No Edema Skin: Warm Labs Laboratory Tests Test 12/20/18 11:05 12/20/18 14:20 12/20/18 14:40 12/20/18 22:19 Heparin Anti-Xa Act, Unfractionated 0.47 IU/mL (0.30-0.70) Urine Collection Type Unknown Urine Color Yellow Urine Clarity Clear Urine pH 5.5 Urine Specific [place] 1.020 Urine Protein >=300 mg/dL (NEG-TRACE) Urine Glucose (UA) 250 mg/dL (NEG) Urine Ketones (Stick) Trace mg/dL (NEG) Urine Blood Large (NEG) Urine Nitrite Negative (NEG) Urine Bilirubin Negative (NEG) Urine Urobilinogen Dipstick 0.2 mg/dL (0.2 mg/dL) Urine Leukocyte Esterase Negative (NEG) Urine RBC 20-40 /HPF (0-2) Urine WBC 1-4 /HPF (0-4) Urine Squamous Epithelial Cells Few /LPF Urine Bacteria Few /HPF (0-FEW) White Blood Count 25.6 x10^3/uL (4.0-11.0) Red Blood Count 4.13 x10^6/uL (3.50-5.40) Hemoglobin 10.4 g/dL (12.0-15.5) Hematocrit 32.4 % (36.0-47.0) Mean Corpuscular Volume 79 fL (79-100) Mean Corpuscular Hemoglobin 25 pg (25-35) Mean Corpuscular Hemoglobin Concent 32 g/dL (31-37) Red Cell Distribution Width 16.6 % (11.5-14.5) Platelet Count 267 x10^3/uL (140-400) Neutrophils (%) (Auto) 88 % (31-73) Lymphocytes (%) (Auto) 7 % (24-48) Monocytes (%) (Auto) 5 % (0-9) Eosinophils (%) (Auto) 0 % (0-3) Basophils (%) (Auto) 0 % (0-3) Neutrophils # (Auto) 22.6 x10^3uL (1.8-7.7) Lymphocytes # (Auto) 1.7 x10^3/uL (1.0-4.8) Monocytes # (Auto) 1.3 x10^3/uL (0.0-1.1) Eosinophils # (Auto) 0.0 x10^3/uL (0.0-0.7) Basophils # (Auto) 0.0 x10^3/uL (0.0-0.2) Segmented Neutrophils % 83 % (35-66) Band Neutrophils % 9 % (0-9) Lymphocytes % 5 % (24-48) Monocytes % 3 % (0-10) Platelet Estimate Adequate (ADEQUATE) Poikilocytosis Mod Crenated Cell Present Schistocytes Few Activated Partial Thromboplast Time 99 SEC (24-38) Sodium Level 144 mmol/L (136-145) Potassium Level 5.1 mmol/L (3.5-5.1) Chloride Level 106 mmol/L (98-107) Carbon Dioxide Level 27 mmol/L (21-32) Anion Gap 11 (6-14) Blood Urea Nitrogen 25 mg/dL (7-20) Creatinine 1.8 mg/dL (0.6-1.0) Estimated GFR (Cockcroft-Gault) 33.2 Glucose Level 175 mg/dL (70-99) Calcium Level 8.9 mg/dL (8.5-10.1) Ionized Calcium 1.15 mmol/L (1.13-1.32) Phosphorus Level 8.3 mg/dL (2.6-4.7) Magnesium Level 3.1 mg/dL (1.8-2.4) Glucose (Fingerstick) 142 mg/dL (70-99) Test 12/20/18 23:14 12/21/18 00:16 12/21/18 06:02 12/21/18 08:21 Glucose (Fingerstick) 142 mg/dL (70-99) 146 mg/dL (70-99) 161 mg/dL (70-99) 142 mg/dL (70-99) Test 12/21/18 09:00 12/21/18 09:30 12/22/18 03:25 O2 Saturation 99 % (92-99) Arterial Blood pH 7.48 (7.35-7.45) Arterial Blood pCO2 at Patient Temp 26 mmHg (35-46) Arterial Blood pO2 at Patient Temp 207 mmHg (65-108) Arterial Blood HCO3 19 mmol/L (21-28) Arterial Blood Base Excess -3 mmol/L (-3-3) FiO2 40 White Blood Count 21.2 x10^3/uL (4.0-11.0) 21.0 x10^3/uL (4.0-11.0) Red Blood Count 3.42 x10^6/uL (3.50-5.40) 3.25 x10^6/uL (3.50-5.40) Hemoglobin 8.5 g/dL (12.0-15.5) 8.2 g/dL (12.0-15.5) Hematocrit 26.9 % (36.0-47.0) 24.9 % (36.0-47.0) Mean Corpuscular Volume 79 fL (79-100) 77 fL (79-100) Mean Corpuscular Hemoglobin 25 pg (25-35) 25 pg (25-35) Mean Corpuscular Hemoglobin Concent 32 g/dL (31-37) 33 g/dL (31-37) Red Cell Distribution Width 16.3 % (11.5-14.5) 16.8 % (11.5-14.5) Platelet Count 193 x10^3/uL (140-400) 192 x10^3/uL (140-400) Neutrophils (%) (Auto) 88 % (31-73) 95 % (31-73) Lymphocytes (%) (Auto) 5 % (24-48) 2 % (24-48) Monocytes (%) (Auto) 7 % (0-9) 3 % (0-9) Eosinophils (%) (Auto) 0 % (0-3) 0 % (0-3) Basophils (%) (Auto) 0 % (0-3) 0 % (0-3) Neutrophils # (Auto) 18.7 x10^3uL (1.8-7.7) 20.0 x10^3uL (1.8-7.7) Lymphocytes # (Auto) 1.1 x10^3/uL (1.0-4.8) 0.3 x10^3/uL (1.0-4.8) Monocytes # (Auto) 1.4 x10^3/uL (0.0-1.1) 0.7 x10^3/uL (0.0-1.1) Eosinophils # (Auto) 0.0 x10^3/uL (0.0-0.7) 0.0 x10^3/uL (0.0-0.7) Basophils # (Auto) 0.0 x10^3/uL (0.0-0.2) 0.0 x10^3/uL (0.0-0.2) Sodium Level 142 mmol/L (136-145) 140 mmol/L (136-145) Potassium Level 3.0 mmol/L (3.5-5.1) 3.9 mmol/L (3.5-5.1) Chloride Level 104 mmol/L (98-107) 104 mmol/L (98-107) Carbon Dioxide Level 20 mmol/L (21-32) 21 mmol/L (21-32) Anion Gap 18 (6-14) 15 (6-14) Blood Urea Nitrogen 35 mg/dL (7-20) 47 mg/dL (7-20) Creatinine 2.3 mg/dL (0.6-1.0) 2.8 mg/dL (0.6-1.0) Estimated GFR (Cockcroft-Gault) 25.0 19.9 Glucose Level 193 mg/dL (70-99) 262 mg/dL (70-99) Calcium Level 8.6 mg/dL (8.5-10.1) 8.1 mg/dL (8.5-10.1) Magnesium Level 3.3 mg/dL (1.8-2.4) BUN/Creatinine Ratio 17 (6-20) Total Bilirubin 0.3 mg/dL (0.2-1.0) Aspartate Amino Transf (AST/SGOT) 119 U/L (15-37) Alanine Aminotransferase (ALT/SGPT) 35 U/L (14-59) Alkaline Phosphatase 69 U/L (46-116) Total Protein 5.8 g/dL (6.4-8.2) Albumin 2.6 g/dL (3.4-5.0) Albumin/Globulin Ratio 0.8 (1.0-1.7) Laboratory Tests Test 12/21/18 09:00 12/21/18 09:30 12/22/18 03:25 O2 Saturation 99 % (92-99) Arterial Blood pH 7.48 (7.35-7.45) Arterial Blood pCO2 at Patient Temp 26 mmHg (35-46) Arterial Blood pO2 at Patient Temp 207 mmHg (65-108) Arterial Blood HCO3 19 mmol/L (21-28) Arterial Blood Base Excess -3 mmol/L (-3-3) FiO2 40 White Blood Count 21.2 x10^3/uL (4.0-11.0) 21.0 x10^3/uL (4.0-11.0) Red Blood Count 3.42 x10^6/uL (3.50-5.40) 3.25 x10^6/uL (3.50-5.40) Hemoglobin 8.5 g/dL (12.0-15.5) 8.2 g/dL (12.0-15.5) Hematocrit 26.9 % (36.0-47.0) 24.9 % (36.0-47.0) Mean Corpuscular Volume 79 fL (79-100) 77 fL (79-100) Mean Corpuscular Hemoglobin 25 pg (25-35) 25 pg (25-35) Mean Corpuscular Hemoglobin Concent 32 g/dL (31-37) 33 g/dL (31-37) Red Cell Distribution Width 16.3 % (11.5-14.5) 16.8 % (11.5-14.5) Platelet Count 193 x10^3/uL (140-400) 192 x10^3/uL (140-400) Neutrophils (%) (Auto) 88 % (31-73) 95 % (31-73) Lymphocytes (%) (Auto) 5 % (24-48) 2 % (24-48) Monocytes (%) (Auto) 7 % (0-9) 3 % (0-9) Eosinophils (%) (Auto) 0 % (0-3) 0 % (0-3) Basophils (%) (Auto) 0 % (0-3) 0 % (0-3) Neutrophils # (Auto) 18.7 x10^3uL (1.8-7.7) 20.0 x10^3uL (1.8-7.7) Lymphocytes # (Auto) 1.1 x10^3/uL (1.0-4.8) 0.3 x10^3/uL (1.0-4.8) Monocytes # (Auto) 1.4 x10^3/uL (0.0-1.1) 0.7 x10^3/uL (0.0-1.1) Eosinophils # (Auto) 0.0 x10^3/uL (0.0-0.7) 0.0 x10^3/uL (0.0-0.7) Basophils # (Auto) 0.0 x10^3/uL (0.0-0.2) 0.0 x10^3/uL (0.0-0.2) Sodium Level 142 mmol/L (136-145) 140 mmol/L (136-145) Potassium Level 3.0 mmol/L (3.5-5.1) 3.9 mmol/L (3.5-5.1) Chloride Level 104 mmol/L (98-107) 104 mmol/L (98-107) Carbon Dioxide Level 20 mmol/L (21-32) 21 mmol/L (21-32) Anion Gap 18 (6-14) 15 (6-14) Blood Urea Nitrogen 35 mg/dL (7-20) 47 mg/dL (7-20) Creatinine 2.3 mg/dL (0.6-1.0) 2.8 mg/dL (0.6-1.0) Estimated GFR (Cockcroft-Gault) 25.0 19.9 Glucose Level 193 mg/dL (70-99) 262 mg/dL (70-99) Calcium Level 8.6 mg/dL (8.5-10.1) 8.1 mg/dL (8.5-10.1) Magnesium Level 3.3 mg/dL (1.8-2.4) BUN/Creatinine Ratio 17 (6-20) Total Bilirubin 0.3 mg/dL (0.2-1.0) Aspartate Amino Transf (AST/SGOT) 119 U/L (15-37) Alanine Aminotransferase (ALT/SGPT) 35 U/L (14-59) Alkaline Phosphatase 69 U/L (46-116) Total Protein 5.8 g/dL (6.4-8.2) Albumin 2.6 g/dL (3.4-5.0) Albumin/Globulin Ratio 0.8 (1.0-1.7) Medications Active Scripts Medications Dose Route/Sig Max Daily Dose Days Date Category Levofloxacin 500 Mg Tablet 1 Tab PO DAILY 12/02/18 Reported Cyanocobalamin Injection (Cyanocobalamin (Vitamin B-12)) 1,000 Mcg/1 Ml Vial 1 Ml IM WEEKLY 12/02/18 Reported Pulmicort (Budesonide) 0.5 Mg/2 Ml Ampul.neb 1 Vial NEB BID 03/26/17 Rx Medrol (Methylprednisolone) 4 Mg Tab.ds.pk 1 Pkg PO UD 03/26/17 Rx Lisinopril 10 Mg Tablet 1 Tab PO DAILY 03/26/17 Rx Vitamin D (Cholecalciferol (Vitamin D3)) 50,000 Unit Capsule 50,000 Unit PO WEEKLY 03/25/17 Reported Cetirizine Hcl 10 Mg Tablet 1 Tab PO DAILY 03/25/17 Reported NITROGLYCERIN SubLingual (Nitroglycerin) 0.4 Mg Tab.subl 0.4 Mg SL PRN Q5MIN PRN 03/25/17 Reported Clopidogrel (Clopidogrel Bisulfate) 75 Mg Tablet 1 Tab PO DAILY 03/08/17 Reported Atorvastatin Calcium 40 Mg Tablet 1 Tab PO DAILY 03/08/17 Reported Aspirin Ec (Aspirin) 81 Mg Tablet.dr 1 Tab PO DAILY 03/08/17 Reported Tylenol (Acetaminophen) 325 Mg Tablet 2 Tab PO PRN Q6HRS PRN 03/08/17 Reported Ventolin Hfa Inhaler (Albuterol Sulfate) 18 Gm Hfa.aer.ad 2 Puff INH Q4HRS 12/12/16 Rx Flonase Allergy Relief (Fluticasone Propionate) 9.9 Ml [place].susp 1 Sprays NS DAILY 12/09/16 Reported Glipizide 10 Mg Tablet 0.05 Tab PO BID 12/09/16 Reported Dorzolamide Hcl 10 Ml Drops 1 Drop EACHEYE BID 12/09/16 Reported Latanoprost 2.5 Ml Drops 1 Drop EACHEYE QHS 12/09/16 Reported Impression . IMPRESSION: 1. Acute hypoxemic respiratory failure secondary to out of hospital cardiac arrest. 2. Out of hospital arrest suspect pulmonary in origin 3. Coronary artery disease with history of ischemic cardiomyopathy, ejection fraction 40% percent. Recent percutaneous transluminal coronary angioplasty to the left anterior descending back in 11/2018. 4. Hypertension. 5. Chronic systolic, diastolic heart failure. 6. Type 2 diabetes. 7. Chronic kidney disease. 8. ALLERGIES TO PENICILLIN, SULFA AND TRAMADOL. 9. Possible seizures 10. POSSIBLE ANOXIC BRAIN INJURY 11. NEGATIVE VENOUS DOPPLER LOWER EXT, CLINICAL SUSPICION FOR PE IS LOW Plan . TOOK PT OFF VENT, NO SPONTANEOUS BREATHING AFTER 2 MINUTES SPOKE WITH AND SON TIA CONTINUE OFF SEDATION NEURO TO FOLLOW D/C HEPARIN NG ASPIRATE WITH BLOODY SECRETIONS I AGREE WITH MAIN ISSUE WAS LOW 02 SAT LEADING TO ARREST ANTI BS PER ID D/W RN START TUBE FEEDING PROGNOSIS IS POOR MAY NEED A APNEA TEST WILL WAIT TILL AM ARTURO DANIEL MD Dec 22, 2018 08:38
[2018-12-22 08:40] LABS: FIO2 ABG 40
[2018-12-22] MEDS ORDERED: IV NORMAL SALINE 250ML 250 ML IV ONE (09:15)
--- NOTE | 2018-12-22 09:16 | PDOC ---
SUBJECTIVE ROS Unresponsive OBJECTIVE Vital Signs Vital Signs Date Time Temp Pulse Resp B/P (MAP) Pulse Ox O2 Delivery O2 Flow Rate FiO2 12/22/18 08:35 102 158/59 12/22/18 08:00 99.7 25 100 Ventilator 99.7 I & 0 Intake and Output 12/22/18 07:00 Intake Total 861 ml Output Total 345 ml Balance 516 ml IV Total 377 ml Tube Feeding 384 ml Other 100 ml Output Urine Total 345 ml Gastric Drainage Total 0 ml PHYSICAL EXAM Physical Exam GENERAL: Intubated HEENT: OGT and ETT in place. LUNGS: Clear anteriorly. HEART: S1, S2 regular. ABDOMEN: Soft, bowel sounds present. GENITOURINARY: Bertrand in place. EXTREMITIES: Trace edema, no cyanosis. NEUROLOGIC: Unresponsive/intubated DIAGNOSIS/ASSESSMENT Assessment & Plan USHA - ATN, Status post code blue worsening,UOP decreasing IV NS bolus, monitor Off pressors now , E-Lytes srable, no emergent indication for HD today Chronic kidney disease stage III: Presume a diabetic hypertensive nephrosclerosis [facility] med disease Status post outside code blue. Acute respiratory failure. Seizure-like activity. Anoxic brain injury Neurology following Coronary artery disease, status post PTCA on 11/30. Poor Prognosis COMMENT/RELEVANT DATA Meds Current Medications Medications (Trade) Dose Ordered Sig/Tangela Start Time Stop Time Status Last Admin Dose Admin Acetaminophen (Tylenol) 650 mg Q4H 12/19/18 19:00 12/21/18 19:15 DC Albuterol Sulfate (Ventolin Neb Soln) 2.5 mg STK-MED ONCE 12/19/18 18:03 12/19/18 18:04 DC Albuterol/ Ipratropium (Duoneb) 3 ml STK-MED ONCE 12/20/18 06:17 12/20/18 06:18 DC Artificial Tears (Artificial Tears) 1 drop PRN Q15MIN PRN 12/19/18 18:15 Aspirin (Children'S Aspirin) 81 mg DAILYWBKFT 12/20/18 09:30 12/22/18 08:35 81 MG Bisacodyl (Dulcolax Supp) 10 mg PRN DAILY PRN 12/19/18 18:30 Budesonide (Pulmicort) 0.5 mg STK-MED ONCE 12/20/18 06:17 12/20/18 06:18 DC Buspirone HCl (Buspar) 30 mg Q8H 12/19/18 19:00 12/21/18 11:01 DC Dobutamine HCl/ Dextrose 250 ml @ 0 mls/hr CONT PRN 12/19/18 19:00 Epinephrine HCl 8 mg/Sodium Chloride 250 ml @ 0 mls/hr CONT PRN 12/19/18 17:45 12/19/18 19:13 18.75 MLS/HR Famotidine (Pepcid Vial) 20 mg QHS 12/19/18 21:00 12/20/18 15:25 DC 12/19/18 21:22 20 MG Fentanyl Citrate 30 ml @ 2.5 mls/hr CONT PRN 12/19/18 18:15 12/21/18 05:53 2.5 MLS/HR Fentanyl Citrate (Fentanyl 2ml Vial) 100 mcg 1X ONCE 12/19/18 18:15 12/19/18 18:34 DC Heparin Sodium (Porcine) (Heparin Sodium) 1,150 unit PRN Q6HRS PRN 12/19/18 21:00 12/20/18 18:36 DC Heparin Sodium/ Dextrose 500 ml @ 0 mls/hr CONT PRN 12/19/18 21:00 12/20/18 18:36 DC Levetiracetam 1000 mg/Dextrose 110 ml @ 440 mls/hr 1X ONCE 12/20/18 14:30 12/20/18 14:44 DC 12/20/18 14:39 440 MLS/HR Levetiracetam 500 mg/Dextrose 105 ml @ 420 mls/hr Q12HR 12/20/18 21:00 12/22/18 08:34 420 MLS/HR Levofloxacin/ Dextrose 50 ml @ 50 mls/hr Q24H 12/19/18 20:00 12/20/18 11:16 DC 12/19/18 20:11 50 MLS/HR Linezolid/Dextrose 300 ml @ 300 mls/hr Q12HR 12/19/18 21:00 12/20/18 11:16 DC 12/20/18 09:47 300 MLS/HR Lorazepam (Ativan Inj) 2 mg PRN Q4HRS PRN 12/19/18 19:15 12/21/18 00:14 2 MG Meropenem 500 mg/ Sodium Chloride 50 ml @ 100 mls/hr Q12HR 12/19/18 20:00 12/22/18 08:36 100 MLS/HR Methylprednisolone Sodium Succinate (SOLU-Medrol 125MG VIAL) 100 mg 1X ONCE 12/19/18 18:45 12/19/18 18:46 DC 12/19/18 19:10 100 MG Metoprolol Tartrate (Lopressor) 12.5 mg BID 12/21/18 21:00 12/22/18 08:35 12.5 MG Midazolam HCl 100 ml @ 0 mls/hr CONT PRN 12/19/18 18:15 Midazolam HCl (Versed) 2 mg 1X ONCE 12/19/18 18:15 12/19/18 18:34 DC Norepinephrine Bitartrate 250 ml @ 0 mls/hr CONT PRN 12/19/18 19:00 Ondansetron HCl (Zofran) 4 mg PRN Q6HRS PRN 12/19/18 18:30 Pantoprazole Sodium (PROTONIX VIAL for IV PUSH) 40 mg DAILYAC 12/20/18 15:30 12/22/18 08:34 40 MG Potassium Phosphate 13.6 mmol/Sodium Chloride 104.5333 ml @ 52.267 m... Q2H 12/20/18 10:00 12/20/18 15:59 DC 12/20/18 13:36 52.267 MLS/HR Potassium Chloride (Klor-Con) 40 meq Q2H 12/21/18 13:00 12/21/18 15:01 DC 12/21/18 13:32 40 MEQ Prasugrel (Effient) 10 mg DAILYWBKFT 12/20/18 09:30 12/22/18 08:35 10 MG Propofol 100 ml @ 0 mls/hr CONT PRN 12/19/18 18:15 12/21/18 00:13 2.7 MLS/HR Sodium Chloride 500 ml @ 1,000 mls/hr PRN Q30MIN PRN 12/19/18 19:00 Sodium Chloride (Normal Saline Flush) 3 ml QSHIFT PRN 12/19/18 18:30 Vecuronium [place] (Norcuron Bolus) 5 mg PRN Q1HR PRN 12/19/18 18:15 Lab Laboratory Tests Test 12/21/18 09:30 12/22/18 03:25 12/22/18 08:00 White Blood Count 21.2 x10^3/uL (4.0-11.0) 21.0 x10^3/uL (4.0-11.0) Red Blood Count 3.42 x10^6/uL (3.50-5.40) 3.25 x10^6/uL (3.50-5.40) Hemoglobin 8.5 g/dL (12.0-15.5) 8.2 g/dL (12.0-15.5) Hematocrit 26.9 % (36.0-47.0) 24.9 % (36.0-47.0) Mean Corpuscular Volume 79 fL (79-100) 77 fL (79-100) Mean Corpuscular Hemoglobin 25 pg (25-35) 25 pg (25-35) Mean Corpuscular Hemoglobin Concent 32 g/dL (31-37) 33 g/dL (31-37) Red Cell Distribution Width 16.3 % (11.5-14.5) 16.8 % (11.5-14.5) Platelet Count 193 x10^3/uL (140-400) 192 x10^3/uL (140-400) Neutrophils (%) (Auto) 88 % (31-73) 95 % (31-73) Lymphocytes (%) (Auto) 5 % (24-48) 2 % (24-48) Monocytes (%) (Auto) 7 % (0-9) 3 % (0-9) Eosinophils (%) (Auto) 0 % (0-3) 0 % (0-3) Basophils (%) (Auto) 0 % (0-3) 0 % (0-3) Neutrophils # (Auto) 18.7 x10^3uL (1.8-7.7) 20.0 x10^3uL (1.8-7.7) Lymphocytes # (Auto) 1.1 x10^3/uL (1.0-4.8) 0.3 x10^3/uL (1.0-4.8) Monocytes # (Auto) 1.4 x10^3/uL (0.0-1.1) 0.7 x10^3/uL (0.0-1.1) Eosinophils # (Auto) 0.0 x10^3/uL (0.0-0.7) 0.0 x10^3/uL (0.0-0.7) Basophils # (Auto) 0.0 x10^3/uL (0.0-0.2) 0.0 x10^3/uL (0.0-0.2) Sodium Level 142 mmol/L (136-145) 140 mmol/L (136-145) Potassium Level 3.0 mmol/L (3.5-5.1) 3.9 mmol/L (3.5-5.1) Chloride Level 104 mmol/L (98-107) 104 mmol/L (98-107) Carbon Dioxide Level 20 mmol/L (21-32) 21 mmol/L (21-32) Anion Gap 18 (6-14) 15 (6-14) Blood Urea Nitrogen 35 mg/dL (7-20) 47 mg/dL (7-20) Creatinine 2.3 mg/dL (0.6-1.0) 2.8 mg/dL (0.6-1.0) Estimated GFR (Cockcroft-Gault) 25.0 19.9 Glucose Level 193 mg/dL (70-99) 262 mg/dL (70-99) Calcium Level 8.6 mg/dL (8.5-10.1) 8.1 mg/dL (8.5-10.1) Magnesium Level 3.3 mg/dL (1.8-2.4) BUN/Creatinine Ratio 17 (6-20) Total Bilirubin 0.3 mg/dL (0.2-1.0) Aspartate Amino Transf (AST/SGOT) 119 U/L (15-37) Alanine Aminotransferase (ALT/SGPT) 35 U/L (14-59) Alkaline Phosphatase 69 U/L (46-116) Total Protein 5.8 g/dL (6.4-8.2) Albumin 2.6 g/dL (3.4-5.0) Albumin/Globulin Ratio 0.8 (1.0-1.7) O2 Saturation 99 % (92-99) Arterial Blood pH 7.42 (7.35-7.45) Arterial Blood pCO2 at Patient Temp 31 mmHg (35-46) Arterial Blood pO2 at Patient Temp 173 mmHg (65-108) Arterial Blood HCO3 20 mmol/L (21-28) Arterial Blood Base Excess -4 mmol/L (-3-3) FiO2 40 Results All relevant outside records, renal labs, imaging studies, telemetry/EKG's were reviewed. HELGA STAPLETON MD Dec 22, 2018 09:16
--- NOTE | 2018-12-22 09:34 | EKG ---
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
--- NOTE | 2018-12-22 10:04 | NUR ---
Stat EKG ordered on pt regarding ST depression. LEENA Berry notified of findings. No new orders at this time.
--- NOTE | 2018-12-22 11:20 | PN ---
DATE: 12/22/2018 SUBJECTIVE: The patient is resting slightly propped up in bed, continued to be intubated and mechanically ventilated. She is off sedation. She does not open her eyes spontaneously nor does she respond to verbal or painful stimuli. She is off hypothermia and she is now normothermic. Her temperature in fact, if anything, is 99.7. She was seen by the neurologist. However, apparently no EEG was done yesterday. PHYSICAL EXAMINATION: GENERAL: When I examined her this morning, she looked pale, somewhat cachectic, but not jaundiced or cyanosed. No lymphadenopathy, no thyromegaly. No jugular venous distention. No lower limb edema. VITAL SIGNS: Her heart rate was 94, blood pressure was 148/53, temperature was 99.7, respiratory rate was 25 and oxygen saturation was 100% on FiO2 of 40%. HEENT: Examination of the head, eyes, ears, nose and throat showed normocephalic, atraumatic. She has orotracheal and orogastric tubes in place. NECK: Supple. HEART: Showed normal first and second heart sounds. No gallop, rub or murmur. CHEST: Clear to auscultation. No crepitation or rhonchi. ABDOMEN: Slightly distended, soft and nontender. NEUROLOGIC: She has Crouse Coma Scale of 3. She does not open her eyes spontaneously nor does she respond to verbal or painful stimuli. Her intake over the last 24 hours was 371, output was 720. LABORATORY DATA: As of this morning, her white cell count was 21,000, hemoglobin 8.2, hematocrit 24, MCV 77 and platelet count of 192,000. Her serum sodium was 140, potassium 3.9, chloride 104, bicarbonate 21, anion gap of 15, BUN 47, creatinine 2.8, estimated GFR was 19 mL per minute, her glucose at 262 and calcium was 8.1. Magnesium was 3.3. Total bilirubin, AST, ALT and alkaline phosphatase were elevated. Total protein was 5.8. Albumin 2.6. Blood gases showed a pH of 7.42, pCO2 of 31, pO2 of 173, bicarb 20, and oxygen saturation was 99% on FiO2 of 40%. ASSESSMENT AND PLAN: 1. [id number]-[id number] cardiac arrest through acute respiratory failure, currently intubated and mechanically ventilated. 2. Coronary artery disease and history of ischemic cardiomyopathy, ejection fraction approximately 40%. 3. Recent percutaneous transluminal coronary angioplasty and stent deployment. 4. Hypertension. 5. Chronic systolic and diastolic congestive heart failure. 6. Type 2 diabetes. 7. [id number] kidney injury. PLAN: Given the she is off hypothermia and her Amadeo Coma Scale is 3, I would consult the palliative care team. She probably needs an EEG and a decision will be made to perhaps discontinue all supportive care if she showed no evidence of life on her EEG. DI HANNAH MD DR: ZEUS/ariel JOB#: [id number] / [id number]
--- NOTE | 2018-12-22 11:29 | PDOC ---
CARDIO Progress Notes Date and Time Date of Service 12/22/2018 Time of Evaluation 1110 Subjective Subjective: Other (intubated) Vitals Vitals Vital Signs Date Time Temp Pulse Resp B/P (MAP) Pulse Ox O2 Delivery O2 Flow Rate FiO2 12/22/18 10:00 94 25 153/62 (92) 100 Ventilator 12/22/18 08:00 99.7 99.7 Weight Weight [ ] Input and Output Intake and Output Intake and Output 12/22/18 07:00 Intake Total 861 ml Output Total 345 ml Balance 516 ml IV Total 377 ml Tube Feeding 384 ml Other 100 ml Output Urine Total 345 ml Gastric Drainage Total 0 ml Laboratory Labs Laboratory Tests Test 12/22/18 03:25 12/22/18 08:00 White Blood Count 21.0 x10^3/uL (4.0-11.0) Red Blood Count 3.25 x10^6/uL (3.50-5.40) Hemoglobin 8.2 g/dL (12.0-15.5) Hematocrit 24.9 % (36.0-47.0) Mean Corpuscular Volume 77 fL (79-100) Mean Corpuscular Hemoglobin 25 pg (25-35) Mean Corpuscular Hemoglobin Concent 33 g/dL (31-37) Red Cell Distribution Width 16.8 % (11.5-14.5) Platelet Count 192 x10^3/uL (140-400) Neutrophils (%) (Auto) 95 % (31-73) Lymphocytes (%) (Auto) 2 % (24-48) Monocytes (%) (Auto) 3 % (0-9) Eosinophils (%) (Auto) 0 % (0-3) Basophils (%) (Auto) 0 % (0-3) Neutrophils # (Auto) 20.0 x10^3uL (1.8-7.7) Lymphocytes # (Auto) 0.3 x10^3/uL (1.0-4.8) Monocytes # (Auto) 0.7 x10^3/uL (0.0-1.1) Eosinophils # (Auto) 0.0 x10^3/uL (0.0-0.7) Basophils # (Auto) 0.0 x10^3/uL (0.0-0.2) Sodium Level 140 mmol/L (136-145) Potassium Level 3.9 mmol/L (3.5-5.1) Chloride Level 104 mmol/L (98-107) Carbon Dioxide Level 21 mmol/L (21-32) Anion Gap 15 (6-14) Blood Urea Nitrogen 47 mg/dL (7-20) Creatinine 2.8 mg/dL (0.6-1.0) Estimated GFR (Cockcroft-Gault) 19.9 BUN/Creatinine Ratio 17 (6-20) Glucose Level 262 mg/dL (70-99) Calcium Level 8.1 mg/dL (8.5-10.1) Total Bilirubin 0.3 mg/dL (0.2-1.0) Aspartate Amino Transf (AST/SGOT) 119 U/L (15-37) Alanine Aminotransferase (ALT/SGPT) 35 U/L (14-59) Alkaline Phosphatase 69 U/L (46-116) Total Protein 5.8 g/dL (6.4-8.2) Albumin 2.6 g/dL (3.4-5.0) Albumin/Globulin Ratio 0.8 (1.0-1.7) O2 Saturation 99 % (92-99) Arterial Blood pH 7.42 (7.35-7.45) Arterial Blood pCO2 at Patient Temp 31 mmHg (35-46) Arterial Blood pO2 at Patient Temp 173 mmHg (65-108) Arterial Blood HCO3 20 mmol/L (21-28) Arterial Blood Base Excess -4 mmol/L (-3-3) FiO2 40 Microbiology Micro Microbiology 12/19/18 Blood Culture - Preliminary, Resulted NO GROWTH AFTER 2 DAYS Physical Exam HEENT: Neck Supple W Full Motion Chest: Symmetric LUNGS: Other (mechanical ventilation) Heart: S1S2, RRR (SR), other (distant heart tones) Abdomen: Other (soft) Extremities: No Edema Neurology: other (unresponsive, off sedation) Assessment Assessment 1. OOH with PEA arrest; most probably pulm in etiology. Unclear duration to ROSC. 2. Acute respiratory failure: intubated with vent 3. Mild troponin elevation; highest 0.123. Most probably type II, demand ischemia secondary to above. 5. CAD s/p PCI/stent to RCA in 2012 and PCI/YEMI to the LAD and RCA 02/2017. Cath earlier this most with PTCA to LAD with mild disease to other major vessels 6. CM: EF at 35-40% compensated 7. Chronic systolic/diastolic CHF: compensated 8. USHA on CKD: worsening Cr, nephrology following 9. Hypertension: controlled 10. DM2/ HLP 11. Hypokalemia 12. Hypoxic/anoxic encephalopathy with possible seizures: remains unresponsive despite no sedation Recommendations 1. Secondary prevention; DAPT, await neurology input and if there is potential any meaningful neurological recovery then will transition from effient to brilinta. 2. Hold ROSLYN with USHA 3. Lasix PRN 4. Poor prognosis, palliative consult pending and note goals of care. 5. Supportive care TC [employer] Dec 22, 2018 11:29
--- NOTE | 2018-12-22 12:44 | EKG ---
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
[2018-12-22] MEDS: IV NORMAL SALINE 1000ML BAG 1,000 ML IV SCH ×2 (13:10→19:19)
--- NOTE | 2018-12-22 13:51 | PDOC2 ---
PALLIATIVE CARE Palliative Care Note Palliative Care Consult requested by Dr. Felipe to address goals of care. Medical Assessment per medical record; ASSESSMENT AND PLAN: 1. Izt-yd-[id number] cardiac arrest through acute respiratory failure, currently intubated and mechanically ventilated. 2. Coronary artery disease and history of ischemic cardiomyopathy, ejection fraction approximately 40%. 3. Recent percutaneous transluminal coronary angioplasty and stent deployment. 4. Hypertension. 5. Chronic systolic and diastolic congestive heart failure. 6. Type 2 diabetes. 7. Zplqo-kx-[id number] kidney injury. Copy of AD reviewed. Dated and signed by To krueger. Patient remains on Vent. Off sedation since 7am. EEG pending Apnea test pending. 1415 Met with patient's Macario, son To, daughter Bria; Charleen ross-daughter; family unable to attend-Mikael and Edwin sons, grandchildren--Dereck and granddaughters Family can accurately verbalize medical condition as above; Family adamant that patient would not want to be in a "vegetative state" Has always been very clear about what she wanted if she became very ill. Discussed options for care; continue current treatment plan vs focus on comfort and allow patient to naturally. Family would like time for other family members to visit as well as get results of EEG. Reviewed process for change to comfort care at request of family. Family will notify staff when they are ready to have ventilator removed and allow natural . Appreciative of care and support. Plan: Allow Natural when family ready. EEG results pending. [id number] To DAMON. would like to make changes to comfort at 9am 12/23/2018. Discussed with Macario DAMON. DORIS DUEÑAS Dec 22, 2018 13:51
--- NOTE | 2018-12-22 14:17 | NUR ---
SS following for discharge planning. SS reviewed pt chart. Pt is from home with spouse and is currently on the vent. No discharge needs noted at this time. SS will continue to follow for discharge planning.
--- NOTE | 2018-12-22 16:08 | RAD ---
PORTABLE CHEST 1V Clinical Indication: Respiratory failure. Comparison: AP chest, prior day. Findings: Endotracheal and enteric tubes are in stable position. The cardiac silhouette is normal. The lungs remain clear. No pleural abnormality. IMPRESSION: 1. Stable life support devices. 2. Lungs remain clear. Electronically signed by: Daniel Corona MD (12/22/2018 4:06 PM) [id number]
--- NOTE | 2018-12-22 18:56 | PDOC ---
PROGRESS NOTES Assessment Assessment Hypoxia/anoxia encephalopathy. Metabolic encephalopathy. Respiratory failure. S/p cardiopulmonary arrest, downtime > 5 minutes. Abnormal jerk or myoclonic movements. Lactic acidosis. Leukocytosis. Renal failure. Hematuria. CAD. COPD. HTN. HLD. CKD. RECOMMENDATIONS/PLAN: Continue life support in ICU at the present time per family. Keppra 500 mg IV q12h. HCT when stable. EEG. Treat medical diseases. Consulted Palliative Care Team. Discussed with her , son, daughter and granddaughter at bedside about poor prognosis in ICU on 12/22/18. PAST MEDICAL HISTORY: Coronary artery disease, status post recent balloon angioplasty. Hypertension. Hyperlipidemia. Chronic kidney disease. Bronchitis. Chronic obstructive pulmonary disease. ALLERGIES: PENICILLINS, SULFA AND TRAMADOL. FAMILY HISTORY: Hypertension. SOCIAL HISTORY: She lives with her . She denied smoking tobacco, drinking alcohol or using recreational drugs. MEDICATIONS: Refer to MAR REVIEW OF SYSTEMS: Constitutional: No malnutrition, weight loss, cachexia. Head: No traumatic brain or head injury. Skin: No edema, or rash. Ear: No infection. Eyes: No vision loss, or diplopia. Nose: No bleeding or purulent discharges. Hearing: No hearing decrease. Neck: No injury. Breast: No history of cancer, masses, or discharges. Cardiac: CAD, HTN, HLD Pulmonary: COPD. GI: No GI Ulcer, GI bleeding Urinary/genital: UTI. Endocrine: No cousin face, craniofacial dysmorphism. Skeletomuscular: No muscular atrophy. Neurological: see HP. Psychiatric: Denies drug use/abuse. Otherwise, not [id number] review of systems. PHYSICAL EXAMINATION: General appearance in subacute distress. HEENT: Normocephalic and nontraumatic. Eyes, nose, ears, and throat are unremarkable. Neck is supple. No lymphadenopathy. No Crepitus. Cardiovascular: S1, S2, regular rate and rhythm. Pulmonary: On vent Abdomen: Bowel sounds are positive. Extremities: No rash, lesions. No restriction of range of motion NEUROLOGICAL EXAMINATION: On vent. Unresponsive. No sedation since 7:00 am of 12/21/18. Not oriented to time, place and person. Pupillary response not elicited to light stimuli. Corneal reflex not elicited. Cough reflex not observed by nurse. Weak gag reflex per nurse. EOMI not elicited. CN: no focal findings. Muscle tone: decreased. Muscle strength: no movements observed to stimuli. DTR: 0-1 Plantar reflex: No response bilaterally Gait: not able to walk. Sensory exam: no response to pain stimuli. Not able to access cerebellar signs at the present time. F-T-N test not performed. Bilateral Stone's sign positive. Objective Objective Vital Signs Date Time Temp Pulse Resp B/P (MAP) Pulse Ox O2 Delivery O2 Flow Rate FiO2 12/22/18 18:00 90 17 163/56 (91) 100 Ventilator 12/22/18 16:00 99.5 99.5 Intake and Output 12/22/18 06:59 Intake Total 861 ml Output Total 325 ml Balance 536 ml IV Total 377 ml Tube Feeding 384 ml Other 100 ml Output Urine Total 325 ml Gastric Drainage Total 0 ml Vitals Signs Vitals VS - Last 72 Hours, by Label Date Time Temp Pulse Resp B/P (MAP) Pulse Ox O2 Delivery O2 Flow Rate FiO2 12/22/18 18:00 90 17 163/56 (91) 100 Ventilator 12/22/18 17:47 100 Ventilator 12/22/18 17:00 93 21 161/56 (91) 95 Ventilator 12/22/18 16:00 Mechanical Ventilator 12/22/18 16:00 99.5 88 17 156/58 (90) 100 Ventilator 99.5 12/22/18 15:47 100 Ventilator 12/22/18 15:00 86 16 158/56 (90) 100 Ventilator 12/22/18 14:00 85 16 149/63 (91) 100 Ventilator 12/22/18 14:00 100 Ventilator 12/22/18 13:00 110 16 140/55 (83) 100 Ventilator 12/22/18 12:00 Mechanical Ventilator 12/22/18 12:00 99.3 86 16 151/59 (89) 100 Ventilator 99.3 12/22/18 11:51 100 Ventilator 12/22/18 11:00 88 16 152/59 (90) 100 Ventilator 12/22/18 10:00 94 25 153/62 (92) 100 Ventilator 12/22/18 09:37 100 Ventilator 12/22/18 09:00 100 25 148/55 (86) 100 Ventilator 12/22/18 08:35 102 158/59 12/22/18 08:00 99.7 94 25 148/53 (84) 100 Ventilator 99.7 12/22/18 08:00 Mechanical Ventilator 12/22/18 07:47 100 Ventilator 12/22/18 07:00 86 25 135/47 (76) 100 Ventilator 12/22/18 06:00 100.0 87 26 133/47 (75) 100 Ventilator 100.0 12/22/18 05:00 100.0 87 26 131/46 (74) 100 Ventilator 100.0 12/22/18 04:58 100 Ventilator 12/22/18 04:00 Mechanical Ventilator 12/22/18 04:00 99.9 89 26 127/47 (73) 100 Ventilator 99.9 12/22/18 03:25 100 Ventilator 12/22/18 03:00 99.3 89 25 140/55 (83) 100 Ventilator 99.3 12/22/18 02:00 99.0 88 25 119/45 (69) 100 Ventilator 99.0 12/22/18 01:20 97 Ventilator 12/22/18 01:00 99.0 87 25 137/51 (79) 97 Ventilator 99.0 12/22/18 00:00 Mechanical Ventilator 12/22/18 00:00 98.1 87 26 109/44 (65) 100 Ventilator 98.1 12/21/18 23:15 100 Ventilator 12/21/18 23:00 98.2 86 26 118/43 (68) 98 Ventilator 98.2 12/21/18 22:00 98.4 98 26 133/52 (79) 98 Ventilator 98.4 12/21/18 21:30 100 141/58 12/21/18 21:00 98.8 102 26 138/55 (82) 100 Ventilator 98.8 12/21/18 20:06 100 Ventilator 12/21/18 20:00 Mechanical Ventilator 12/21/18 20:00 98.4 97 26 140/65 (90) 100 Ventilator 98.4 12/21/18 19:00 96 26 135/51 (79) 100 Ventilator 12/21/18 18:20 98 Ventilator 12/21/18 18:00 98.8 101 25 127/54 (78) 100 Ventilator 98.8 12/21/18 18:00 98.8 12/21/18 17:00 98.8 12/21/18 17:00 98.8 102 25 127/56 (79) 100 Ventilator 98.8 12/21/18 16:33 100 Ventilator 12/21/18 16:00 98.6 92 25 136/49 (78) 100 Ventilator 98.6 12/21/18 16:00 Mechanical Ventilator 12/21/18 16:00 98.6 12/21/18 15:00 98.6 94 25 116/51 (72) 100 Ventilator 98.6 12/21/18 15:00 98.6 12/21/18 14:00 98.6 87 25 117/53 (74) 100 Ventilator 98.6 12/21/18 14:00 98.6 12/21/18 13:00 98.7 12/21/18 13:00 98.7 90 25 105/41 (62) 100 Ventilator 98.7 12/21/18 12:26 100 Ventilator 12/21/18 12:00 98.6 12/21/18 12:00 98.6 86 25 111/52 (71) 100 Ventilator 98.6 12/21/18 12:00 Mechanical Ventilator 12/21/18 11:00 98.6 88 25 105/43 (63) 100 Ventilator 98.6 12/21/18 11:00 98.6 12/21/18 10:00 98.2 12/21/18 10:00 98.2 89 26 102/48 (66) 100 Ventilator 98.2 12/21/18 09:43 100 Ventilator 12/21/18 09:00 97.5 12/21/18 09:00 97.5 84 25 114/57 (76) 100 Ventilator 97.5 12/21/18 08:51 100 Ventilator 12/21/18 08:00 Mechanical Ventilator 12/21/18 08:00 97.2 12/21/18 08:00 97.3 84 25 98/53 (68) 100 Ventilator 97.3 12/21/18 07:00 97.0 12/21/18 07:00 80 25 99/64 (76) 100 Ventilator Laboratory Laboratory Laboratory Tests Test 12/22/18 03:25 12/22/18 08:00 White Blood Count 21.0 x10^3/uL (4.0-11.0) Red Blood Count 3.25 x10^6/uL (3.50-5.40) Hemoglobin 8.2 g/dL (12.0-15.5) Hematocrit 24.9 % (36.0-47.0) Mean Corpuscular Volume 77 fL (79-100) Mean Corpuscular Hemoglobin 25 pg (25-35) Mean Corpuscular Hemoglobin Concent 33 g/dL (31-37) Red Cell Distribution Width 16.8 % (11.5-14.5) Platelet Count 192 x10^3/uL (140-400) Neutrophils (%) (Auto) 95 % (31-73) Lymphocytes (%) (Auto) 2 % (24-48) Monocytes (%) (Auto) 3 % (0-9) Eosinophils (%) (Auto) 0 % (0-3) Basophils (%) (Auto) 0 % (0-3) Neutrophils # (Auto) 20.0 x10^3uL (1.8-7.7) Lymphocytes # (Auto) 0.3 x10^3/uL (1.0-4.8) Monocytes # (Auto) 0.7 x10^3/uL (0.0-1.1) Eosinophils # (Auto) 0.0 x10^3/uL (0.0-0.7) Basophils # (Auto) 0.0 x10^3/uL (0.0-0.2) Sodium Level 140 mmol/L (136-145) Potassium Level 3.9 mmol/L (3.5-5.1) Chloride Level 104 mmol/L (98-107) Carbon Dioxide Level 21 mmol/L (21-32) Anion Gap 15 (6-14) Blood Urea Nitrogen 47 mg/dL (7-20) Creatinine 2.8 mg/dL (0.6-1.0) Estimated GFR (Cockcroft-Gault) 19.9 BUN/Creatinine Ratio 17 (6-20) Glucose Level 262 mg/dL (70-99) Calcium Level 8.1 mg/dL (8.5-10.1) Total Bilirubin 0.3 mg/dL (0.2-1.0) Aspartate Amino Transf (AST/SGOT) 119 U/L (15-37) Alanine Aminotransferase (ALT/SGPT) 35 U/L (14-59) Alkaline Phosphatase 69 U/L (46-116) Total Protein 5.8 g/dL (6.4-8.2) Albumin 2.6 g/dL (3.4-5.0) Albumin/Globulin Ratio 0.8 (1.0-1.7) O2 Saturation 99 % (92-99) Arterial Blood pH 7.42 (7.35-7.45) Arterial Blood pCO2 at Patient Temp 31 mmHg (35-46) Arterial Blood pO2 at Patient Temp 173 mmHg (65-108) Arterial Blood HCO3 20 mmol/L (21-28) Arterial Blood Base Excess -4 mmol/L (-3-3) FiO2 40 Microbiology 12/19/18 Blood Culture - Preliminary, Resulted NO GROWTH AFTER 2 DAYS Medication Medications Current Medications Metoprolol Tartrate (Lopressor) 12.5 mg BID PO Last administered on 12/22/18at 08:35; Start 12/21/18 at 21:00 Sodium Chloride 250 ml @ 500 mls/hr 1X ONCE IV Last administered on 12/22/18at 09:15; Start 12/22/18 at 09:15; Stop 12/22/18 at 09:44; Status DC Sodium Chloride 1,000 ml @ 150 mls/hr Q6H40M IV Last administered on 12/22/18at 13:10; Start 12/22/18 at 12:15 Comment Review of Relevant I have reviewed the following items glo (where applicable) has been applied. GLEN AIKEN MD Dec 22, 2018 18:56
[2018-12-23] VITALS (9 sets, daily range): BP systolic 161–170; BP diastolic 58–86
[2018-12-23] MEDS: IV NORMAL SALINE 1000ML BAG 1,000 ML IV SCH ×2 (02:32→07:53)
[2018-12-23 04:45] LABS: HEMATOCRIT 24.7 % (36.0-47.0); RED BLOOD COUNT 3.16 x10^6/uL (3.50-5.40); RED CELL DISTRIBUTION WIDTH 16.5 % (11.5-14.5)
[2018-12-23 05:14] LABS: ALBUMIN 2.5 g/dL (3.4-5.0); ALBUMIN/GLOBULIN RATIO 0.8 (1.0-1.7); CREATININE 2.1 mg/dL (0.6-1.0); GFR 27.8; POTASSIUM 4.2 mmol/L (3.5-5.1); TOTAL BILIRUBIN 0.3 mg/dL (0.2-1.0); TOTAL PROTEIN 5.8 g/dL (6.4-8.2)
[2018-12-23] MEDS: methylPREDNISolone SOD SUCC PF 125 MG/2 ML VIAL. IV SCH (05:44)
[2018-12-23] MEDS: POLYVINYL ALCOHOL 1.4% OPHTH SOLUTION 15ML BOTTLE. OU SCH ×2 (05:44→12:10)
--- NOTE | 2018-12-23 07:43 | PDOC ---
Infectious Disease Note Subjective Subjective pt is unresponsive ROS ROS unable to do Vital Sign Vital Signs Vital Signs Date Time Temp Pulse Resp B/P (MAP) Pulse Ox O2 Delivery O2 Flow Rate FiO2 12/23/18 06:00 78 17 168/65 (99) 100 Ventilator 12/23/18 04:00 98.6 98.6 Physical Exam PHYSICAL EXAM GENERAL: The patient is in bed, her eyes were rolled back, and she is exhibiting rhythmic facial movements. HEENT: Pupils equally small. OGT and ETT in place. LUNGS: Clear anteriorly. HEART: S1, S2 regular. ABDOMEN: Soft, bowel sounds present. GENITOURINARY: Bertrand in place. EXTREMITIES: Trace edema, no cyanosis. SKIN: Cold. She has a cooling device in place. NEUROLOGIC: Unresponsive Labs Lab Laboratory Tests Test 12/22/18 08:00 12/23/18 04:20 O2 Saturation 99 % (92-99) Arterial Blood pH 7.42 (7.35-7.45) Arterial Blood pCO2 at Patient Temp 31 mmHg (35-46) Arterial Blood pO2 at Patient Temp 173 mmHg (65-108) Arterial Blood HCO3 20 mmol/L (21-28) Arterial Blood Base Excess -4 mmol/L (-3-3) FiO2 40 White Blood Count 18.0 x10^3/uL (4.0-11.0) Red Blood Count 3.16 x10^6/uL (3.50-5.40) Hemoglobin 8.0 g/dL (12.0-15.5) Hematocrit 24.7 % (36.0-47.0) Mean Corpuscular Volume 78 fL (79-100) Mean Corpuscular Hemoglobin 25 pg (25-35) Mean Corpuscular Hemoglobin Concent 33 g/dL (31-37) Red Cell Distribution Width 16.5 % (11.5-14.5) Platelet Count 210 x10^3/uL (140-400) Sodium Level 140 mmol/L (136-145) Potassium Level 4.2 mmol/L (3.5-5.1) Chloride Level 107 mmol/L (98-107) Carbon Dioxide Level 21 mmol/L (21-32) Anion Gap 12 (6-14) Blood Urea Nitrogen 51 mg/dL (7-20) Creatinine 2.1 mg/dL (0.6-1.0) Estimated GFR (Cockcroft-Gault) 27.8 BUN/Creatinine Ratio 24 (6-20) Glucose Level 370 mg/dL (70-99) Calcium Level 8.0 mg/dL (8.5-10.1) Total Bilirubin 0.3 mg/dL (0.2-1.0) Aspartate Amino Transf (AST/SGOT) 84 U/L (15-37) Alanine Aminotransferase (ALT/SGPT) 36 U/L (14-59) Alkaline Phosphatase 78 U/L (46-116) Total Protein 5.8 g/dL (6.4-8.2) Albumin 2.5 g/dL (3.4-5.0) Albumin/Globulin Ratio 0.8 (1.0-1.7) Micro Microbiology 12/19/18 Blood Culture - Preliminary, Resulted NO GROWTH AFTER 1 DAY Objective Assessment 1. Status post outside code blue. 2. Induced hypothermia. 3. Leukocytosis. 4. PENICILLIN AND SULFA ALLERGY. 5. Acute respiratory failure. 6. Seizure-like activity. Anoxic brain injury 7. Lactic acidosis, resolved. 8. Coronary artery disease, status post PTCA on 11/30. 9. Chronic kidney disease. 10. Diabetes. Plan Plan of Care on meropenem supportive care prognosis poor hospice in works BIANCA DOYLE MD Dec 23, 2018 07:43
--- NOTE | 2018-12-23 07:49 | RAD ---
Examination: PORTABLE CHEST 1V History: Respiratory failure Comparison/Correlation: 12/22/2018 portable chest x-ray exam Findings: Portable semierect frontal view chest was obtained. Endotracheal and nasogastric tubes are in place. Heart size is normal. No pneumothorax. Elevation of left hemidiaphragm somewhat greater than previously. Retrocardiac left basilar atelectasis is suspected. No pneumothorax. Impression: Retrocardiac left basilar atelectasis suspected. Electronically signed by: Jamie Irwin MD (12/23/2018 7:46 AM) [facility]
[2018-12-23] MEDS: ASPIRIN CHEWABLE 81 MG TABLET. PO SCH (07:53)
[2018-12-23] MEDS: PRASUGREL 10 MG TABLET. PO SCH (07:53)
[2018-12-23] MEDS: PANTOPRAZOLE IV PUSH 40 MG VIAL. IVP SCH (07:53)
[2018-12-23] MEDS: IPRATRPIUM/ALBUTEROL 0.5/2.5MG 3 ML NEBU. NEB SCH (08:43)
[2018-12-23] MEDS: BUDESONIDE 0.5 MG/2 ML NEBU. NEB SCH (08:43)
[2018-12-23 08:44] LABS: BASE EXCESS ABG -6 mmol/L (-3-3); HCO3 ABG 19 mmol/L (21-28); PCO2 ABG 34 mmHg (35-46); PO2 ABG 189 mmHg (65-108); SAT O2 ABG 99 % (92-99)
[2018-12-23 08:48] LABS: FIO2 ABG 40
[2018-12-23] MEDS: MEROPENEM 500 MG in IV NORMAL SALINE 50ML 50 ML IV SCH (09:00)
[2018-12-23] MEDS: METOPROLOL TART IMMED RELEASE 25 MG TABLET. PO SCH (09:00)
[2018-12-23] MEDS: levETIRAcetam 500 MG in IV DEXTROSE 5% 100ML 100 ML IV SCH (09:00)
[2018-12-23] MEDS ORDERED: MORPHINE SULFATE 4 MG/ML VIAL. IV PRN (09:30)
[2018-12-23] MEDS ORDERED: MORPHINE SULFATE 2 MG/ML VIAL. IV PRN (09:30)
[2018-12-23] MEDS ORDERED: SCOPOLAMINE 1.5MG PATCH. TD SCH (10:00)
--- NOTE | 2018-12-23 10:39 | PDOC ---
SUBJECTIVE ROS Follow-up for acute on chronic renal failure Patient was just recently palliatively extubated. We will hence sign off OBJECTIVE Vital Signs Vital Signs Date Time Temp Pulse Resp B/P (MAP) Pulse Ox O2 Delivery O2 Flow Rate FiO2 12/23/18 10:09 12 Room Air 12/23/18 08:40 100 12/23/18 08:00 97.3 78 165/65 (98) 97.3 I & 0 Intake and Output 12/23/18 07:00 Intake Total 2595 ml Output Total 2135 ml Balance 460 ml IV Total 1832 ml Tube Feeding 663 ml Other 100 ml Output Urine Total 2135 ml Gastric Drainage Total 0 ml COMMENT/RELEVANT DATA Meds Current Medications Medications (Trade) Dose Ordered Sig/Tangela Start Time Stop Time Status Last Admin Dose Admin Acetaminophen (Tylenol) 650 mg Q4H 12/19/18 19:00 12/21/18 19:15 DC Albuterol Sulfate (Ventolin Neb Soln) 2.5 mg STK-MED ONCE 12/19/18 18:03 12/19/18 18:04 DC Albuterol/ Ipratropium (Duoneb) 3 ml STK-MED ONCE 12/20/18 06:17 12/20/18 06:18 DC Artificial Tears (Artificial Tears) 1 drop PRN Q15MIN PRN 12/19/18 18:15 Aspirin (Children'S Aspirin) 81 mg DAILYWBKFT 12/20/18 09:30 12/23/18 10:35 DC 12/23/18 07:53 81 MG Bisacodyl (Dulcolax Supp) 10 mg PRN DAILY PRN 12/19/18 18:30 12/23/18 10:34 DC Budesonide (Pulmicort) 0.5 mg STK-MED ONCE 12/20/18 06:17 12/20/18 06:18 DC Buspirone HCl (Buspar) 30 mg Q8H 12/19/18 19:00 12/21/18 11:01 DC Dobutamine HCl/ Dextrose 250 ml @ 0 mls/hr CONT PRN 12/19/18 19:00 12/23/18 10:34 DC Epinephrine HCl 8 mg/Sodium Chloride 250 ml @ 0 mls/hr CONT PRN 12/19/18 17:45 12/23/18 10:34 DC 12/19/18 19:13 18.75 MLS/HR Famotidine (Pepcid Vial) 20 mg QHS 12/19/18 21:00 12/20/18 15:25 DC 12/19/18 21:22 20 MG Fentanyl Citrate 30 ml @ 2.5 mls/hr CONT PRN 12/19/18 18:15 12/23/18 10:34 DC 12/21/18 05:53 2.5 MLS/HR Fentanyl Citrate (Fentanyl 2ml Vial) 100 mcg 1X ONCE 12/19/18 18:15 12/19/18 18:34 DC Heparin Sodium (Porcine) (Heparin Sodium) 1,150 unit PRN Q6HRS PRN 12/19/18 21:00 12/20/18 18:36 DC Heparin Sodium/ Dextrose 500 ml @ 0 mls/hr CONT PRN 12/19/18 21:00 12/20/18 18:36 DC Levetiracetam 1000 mg/Dextrose 110 ml @ 440 mls/hr 1X ONCE 12/20/18 14:30 12/20/18 14:44 DC 12/20/18 14:39 440 MLS/HR Levetiracetam 500 mg/Dextrose 105 ml @ 420 mls/hr Q12HR 12/20/18 21:00 12/23/18 10:35 DC 12/22/18 20:35 420 MLS/HR Levofloxacin/ Dextrose 50 ml @ 50 mls/hr Q24H 12/19/18 20:00 12/20/18 11:16 DC 12/19/18 20:11 50 MLS/HR Linezolid/Dextrose 300 ml @ 300 mls/hr Q12HR 12/19/18 21:00 12/20/18 11:16 DC 12/20/18 09:47 300 MLS/HR Lorazepam (Ativan Inj) 2 mg PRN Q1HR PRN 12/23/18 09:30 12/23/18 09:37 2 MG Meropenem 500 mg/ Sodium Chloride 50 ml @ 100 mls/hr Q12HR 12/19/18 20:00 12/23/18 10:34 DC 12/22/18 21:09 100 MLS/HR Methylprednisolone Sodium Succinate (SOLU-Medrol 125MG VIAL) 100 mg 1X ONCE 12/19/18 18:45 12/19/18 18:46 DC 12/19/18 19:10 100 MG Metoprolol Tartrate (Lopressor) 12.5 mg BID 12/21/18 21:00 12/23/18 10:35 DC 12/22/18 21:09 12.5 MG Midazolam HCl 100 ml @ 0 mls/hr CONT PRN 12/19/18 18:15 12/23/18 10:34 DC Midazolam HCl (Versed) 2 mg 1X ONCE 12/19/18 18:15 12/19/18 18:34 DC Morphine Sulfate (Morphine Sulfate) 4 mg PRN Q4HRS PRN 12/23/18 09:30 12/23/18 09:37 4 MG Norepinephrine Bitartrate 250 ml @ 0 mls/hr CONT PRN 12/19/18 19:00 12/23/18 10:34 DC Ondansetron HCl (Zofran) 4 mg PRN Q6HRS PRN 12/19/18 18:30 Pantoprazole Sodium (PROTONIX VIAL for IV PUSH) 40 mg DAILYAC 12/20/18 15:30 12/23/18 10:35 DC 12/23/18 07:53 40 MG Potassium Phosphate 13.6 mmol/Sodium Chloride 104.5333 ml @ 52.267 m... Q2H 12/20/18 10:00 12/20/18 15:59 DC 12/20/18 13:36 52.267 MLS/HR Potassium Chloride (Klor-Con) 40 meq Q2H 12/21/18 13:00 12/21/18 15:01 DC 12/21/18 13:32 40 MEQ Prasugrel (Effient) 10 mg DAILYWBKFT 12/20/18 09:30 12/23/18 10:35 DC 12/23/18 07:53 10 MG Propofol 100 ml @ 0 mls/hr CONT PRN 12/19/18 18:15 12/23/18 10:34 DC 12/21/18 00:13 2.7 MLS/HR Scopolamine (Transderm-Scop) 1 patch Q3DAYS 12/23/18 10:00 12/23/18 10:07 1 PATCH Sodium Chloride 1,000 ml @ 150 mls/hr Q6H40M 12/22/18 12:15 7/3/19 10:35 DC 12/23/18 07:53 150 MLS/HR Sodium Chloride (Normal Saline Flush) 3 ml QSHIFT PRN 12/19/18 18:30 12/23/18 10:34 DC Vecuronium Celeste (Norcuron Bolus) 5 mg PRN Q1HR PRN 12/19/18 18:15 12/23/18 10:34 DC Lab Laboratory Tests Test 12/23/18 04:20 12/23/18 08:35 White Blood Count 18.0 x10^3/uL (4.0-11.0) Red Blood Count 3.16 x10^6/uL (3.50-5.40) Hemoglobin 8.0 g/dL (12.0-15.5) Hematocrit 24.7 % (36.0-47.0) Mean Corpuscular Volume 78 fL (79-100) Mean Corpuscular Hemoglobin 25 pg (25-35) Mean Corpuscular Hemoglobin Concent 33 g/dL (31-37) Red Cell Distribution Width 16.5 % (11.5-14.5) Platelet Count 210 x10^3/uL (140-400) Sodium Level 140 mmol/L (136-145) Potassium Level 4.2 mmol/L (3.5-5.1) Chloride Level 107 mmol/L (98-107) Carbon Dioxide Level 21 mmol/L (21-32) Anion Gap 12 (6-14) Blood Urea Nitrogen 51 mg/dL (7-20) Creatinine 2.1 mg/dL (0.6-1.0) Estimated GFR (Cockcroft-Gault) 27.8 BUN/Creatinine Ratio 24 (6-20) Glucose Level 370 mg/dL (70-99) Calcium Level 8.0 mg/dL (8.5-10.1) Total Bilirubin 0.3 mg/dL (0.2-1.0) Aspartate Amino Transf (AST/SGOT) 84 U/L (15-37) Alanine Aminotransferase (ALT/SGPT) 36 U/L (14-59) Alkaline Phosphatase 78 U/L (46-116) Total Protein 5.8 g/dL (6.4-8.2) Albumin 2.5 g/dL (3.4-5.0) Albumin/Globulin Ratio 0.8 (1.0-1.7) O2 Saturation 99 % (92-99) Arterial Blood pH 7.37 (7.35-7.45) Arterial Blood pCO2 at Patient Temp 34 mmHg (35-46) Arterial Blood pO2 at Patient Temp 189 mmHg (65-108) Arterial Blood HCO3 19 mmol/L (21-28) Arterial Blood Base Excess -6 mmol/L (-3-3) FiO2 40 Results All relevant outside records, renal labs, imaging studies, telemetry/EKG's were reviewed. ARMANDO DOYLE MD Dec 23, 2018 10:39
--- NOTE | 2018-12-23 10:40 | PDOC ---
PULMONARY PROGRESS NOTES Subjective terminally extubated this am not responsive Vitals Vital Signs Date Time Temp Pulse Resp B/P (MAP) Pulse Ox O2 Delivery O2 Flow Rate FiO2 12/23/18 10:09 12 Room Air 12/23/18 08:40 100 12/23/18 08:00 97.3 78 165/65 (98) 97.3 HEENT: Other Lungs: Clear Cardiovascular: S1, S2 Abdomen: Soft Extremities: No Edema Skin: Warm Labs Laboratory Tests Test 12/22/18 03:25 12/22/18 08:00 12/23/18 04:20 12/23/18 08:35 White Blood Count 21.0 x10^3/uL (4.0-11.0) 18.0 x10^3/uL (4.0-11.0) Red Blood Count 3.25 x10^6/uL (3.50-5.40) 3.16 x10^6/uL (3.50-5.40) Hemoglobin 8.2 g/dL (12.0-15.5) 8.0 g/dL (12.0-15.5) Hematocrit 24.9 % (36.0-47.0) 24.7 % (36.0-47.0) Mean Corpuscular Volume 77 fL (79-100) 78 fL (79-100) Mean Corpuscular Hemoglobin 25 pg (25-35) 25 pg (25-35) Mean Corpuscular Hemoglobin Concent 33 g/dL (31-37) 33 g/dL (31-37) Red Cell Distribution Width 16.8 % (11.5-14.5) 16.5 % (11.5-14.5) Platelet Count 192 x10^3/uL (140-400) 210 x10^3/uL (140-400) Neutrophils (%) (Auto) 95 % (31-73) Lymphocytes (%) (Auto) 2 % (24-48) Monocytes (%) (Auto) 3 % (0-9) Eosinophils (%) (Auto) 0 % (0-3) Basophils (%) (Auto) 0 % (0-3) Neutrophils # (Auto) 20.0 x10^3uL (1.8-7.7) Lymphocytes # (Auto) 0.3 x10^3/uL (1.0-4.8) Monocytes # (Auto) 0.7 x10^3/uL (0.0-1.1) Eosinophils # (Auto) 0.0 x10^3/uL (0.0-0.7) Basophils # (Auto) 0.0 x10^3/uL (0.0-0.2) Sodium Level 140 mmol/L (136-145) 140 mmol/L (136-145) Potassium Level 3.9 mmol/L (3.5-5.1) 4.2 mmol/L (3.5-5.1) Chloride Level 104 mmol/L (98-107) 107 mmol/L (98-107) Carbon Dioxide Level 21 mmol/L (21-32) 21 mmol/L (21-32) Anion Gap 15 (6-14) 12 (6-14) Blood Urea Nitrogen 47 mg/dL (7-20) 51 mg/dL (7-20) Creatinine 2.8 mg/dL (0.6-1.0) 2.1 mg/dL (0.6-1.0) Estimated GFR (Cockcroft-Gault) 19.9 27.8 BUN/Creatinine Ratio 17 (6-20) 24 (6-20) Glucose Level 262 mg/dL (70-99) 370 mg/dL (70-99) Calcium Level 8.1 mg/dL (8.5-10.1) 8.0 mg/dL (8.5-10.1) Total Bilirubin 0.3 mg/dL (0.2-1.0) 0.3 mg/dL (0.2-1.0) Aspartate Amino Transf (AST/SGOT) 119 U/L (15-37) 84 U/L (15-37) Alanine Aminotransferase (ALT/SGPT) 35 U/L (14-59) 36 U/L (14-59) Alkaline Phosphatase 69 U/L (46-116) 78 U/L (46-116) Total Protein 5.8 g/dL (6.4-8.2) 5.8 g/dL (6.4-8.2) Albumin 2.6 g/dL (3.4-5.0) 2.5 g/dL (3.4-5.0) Albumin/Globulin Ratio 0.8 (1.0-1.7) 0.8 (1.0-1.7) O2 Saturation 99 % (92-99) 99 % (92-99) Arterial Blood pH 7.42 (7.35-7.45) 7.37 (7.35-7.45) Arterial Blood pCO2 at Patient Temp 31 mmHg (35-46) 34 mmHg (35-46) Arterial Blood pO2 at Patient Temp 173 mmHg (65-108) 189 mmHg (65-108) Arterial Blood HCO3 20 mmol/L (21-28) 19 mmol/L (21-28) Arterial Blood Base Excess -4 mmol/L (-3-3) -6 mmol/L (-3-3) FiO2 40 40 Laboratory Tests Test 12/23/18 04:20 12/23/18 08:35 White Blood Count 18.0 x10^3/uL (4.0-11.0) Red Blood Count 3.16 x10^6/uL (3.50-5.40) Hemoglobin 8.0 g/dL (12.0-15.5) Hematocrit 24.7 % (36.0-47.0) Mean Corpuscular Volume 78 fL (79-100) Mean Corpuscular Hemoglobin 25 pg (25-35) Mean Corpuscular Hemoglobin Concent 33 g/dL (31-37) Red Cell Distribution Width 16.5 % (11.5-14.5) Platelet Count 210 x10^3/uL (140-400) Sodium Level 140 mmol/L (136-145) Potassium Level 4.2 mmol/L (3.5-5.1) Chloride Level 107 mmol/L (98-107) Carbon Dioxide Level 21 mmol/L (21-32) Anion Gap 12 (6-14) Blood Urea Nitrogen 51 mg/dL (7-20) Creatinine 2.1 mg/dL (0.6-1.0) Estimated GFR (Cockcroft-Gault) 27.8 BUN/Creatinine Ratio 24 (6-20) Glucose Level 370 mg/dL (70-99) Calcium Level 8.0 mg/dL (8.5-10.1) Total Bilirubin 0.3 mg/dL (0.2-1.0) Aspartate Amino Transf (AST/SGOT) 84 U/L (15-37) Alanine Aminotransferase (ALT/SGPT) 36 U/L (14-59) Alkaline Phosphatase 78 U/L (46-116) Total Protein 5.8 g/dL (6.4-8.2) Albumin 2.5 g/dL (3.4-5.0) Albumin/Globulin Ratio 0.8 (1.0-1.7) O2 Saturation 99 % (92-99) Arterial Blood pH 7.37 (7.35-7.45) Arterial Blood pCO2 at Patient Temp 34 mmHg (35-46) Arterial Blood pO2 at Patient Temp 189 mmHg (65-108) Arterial Blood HCO3 19 mmol/L (21-28) Arterial Blood Base Excess -6 mmol/L (-3-3) FiO2 40 Medications Active Scripts Medications Dose Route/Sig Max Daily Dose Days Date Category Levofloxacin 500 Mg Tablet 1 Tab PO DAILY 12/02/18 Reported Cyanocobalamin Injection (Cyanocobalamin (Vitamin B-12)) 1,000 Mcg/1 Ml Vial 1 Ml IM WEEKLY 12/02/18 Reported Pulmicort (Budesonide) 0.5 Mg/2 Ml Ampul.neb 1 Vial NEB BID 03/26/17 Rx Medrol (Methylprednisolone) 4 Mg Tab.ds.pk 1 Pkg PO UD 03/26/17 Rx Lisinopril 10 Mg Tablet 1 Tab PO DAILY 03/26/17 Rx Vitamin D (Cholecalciferol (Vitamin D3)) 50,000 Unit Capsule 50,000 Unit PO WEEKLY 03/25/17 Reported Cetirizine Hcl 10 Mg Tablet 1 Tab PO DAILY 03/25/17 Reported NITROGLYCERIN SubLingual (Nitroglycerin) 0.4 Mg Tab.subl 0.4 Mg SL PRN Q5MIN PRN 03/25/17 Reported Clopidogrel (Clopidogrel Bisulfate) 75 Mg Tablet 1 Tab PO DAILY 03/08/17 Reported Atorvastatin Calcium 40 Mg Tablet 1 Tab PO DAILY 03/08/17 Reported Aspirin Ec (Aspirin) 81 Mg Tablet.dr 1 Tab PO DAILY 03/08/17 Reported Tylenol (Acetaminophen) 325 Mg Tablet 2 Tab PO PRN Q6HRS PRN 03/08/17 Reported Ventolin Hfa Inhaler (Albuterol Sulfate) 18 Gm Hfa.aer.ad 2 Puff INH Q4HRS 12/12/16 Rx Flonase Allergy Relief (Fluticasone Propionate) 9.9 Ml Lucinda.susp 1 Sprays NS DAILY 12/09/16 Reported Glipizide 10 Mg Tablet 0.05 Tab PO BID 12/09/16 Reported Dorzolamide Hcl 10 Ml Drops 1 Drop EACHEYE BID 12/09/16 Reported Latanoprost 2.5 Ml Drops 1 Drop EACHEYE QHS 12/09/16 Reported Impression . IMPRESSION: 1. Acute hypoxemic respiratory failure secondary to out of hospital cardiac arrest. 2. Out of hospital arrest suspect pulmonary in origin 3. Coronary artery disease with history of ischemic cardiomyopathy, ejection fraction 40% percent. Recent percutaneous transluminal coronary angioplasty to the left anterior descending back in 11/2018. 4. Hypertension. 5. Chronic systolic, diastolic heart failure. 6. Type 2 diabetes. 7. Chronic kidney disease. 8. ALLERGIES TO PENICILLIN, SULFA AND TRAMADOL. 9. Possible seizures 10. POSSIBLE ANOXIC BRAIN INJURY 11. NEGATIVE VENOUS DOPPLER LOWER EXT, CLINICAL SUSPICION FOR PE IS LOW Plan . Terminally extubated not responsive comfort care per family will sign off MAURICIO THIBODEAUX MD Dec 23, 2018 10:40
--- NOTE | 2018-12-23 11:25 | NUR ---
Comfort measures initiated per family at 0930. Dr Felipe aware of family decision. Gave 4mg of IV morphine with 2mg of IV Ativan. Patient extubated at 0945, family at bedside. Time of was at 1106. MTN called patient not a candidate, ok to release body. Family currently in the room. Will take body to morgue after family disperses.
--- NOTE | 2018-12-23 12:07 | PDOC ---
PROGRESS NOTES Assessment Assessment Hypoxia/anoxia encephalopathy. Metabolic encephalopathy. Respiratory failure. S/p cardiopulmonary arrest, PEA, downtime > 5 minutes on 12/19/18. Abnormal jerk or myoclonic movements. Lactic acidosis. Leukocytosis. Renal failure. Hematuria. CAD. COPD. DM. HTN. HLD. CKD. RECOMMENDATIONS/PLAN: Family decided for conform care. Patient clinically < 2 hours. EEG on 12/22/18: No active cerebral activity above 2 mV. Significant artifact. PAST MEDICAL HISTORY: Coronary artery disease, status post recent balloon angioplasty. Hypertension. Hyperlipidemia. Chronic kidney disease. Bronchitis. Chronic obstructive pulmonary disease. ALLERGIES: PENICILLINS, SULFA AND TRAMADOL. FAMILY HISTORY: Hypertension. SOCIAL HISTORY: She lives with her . She denied smoking tobacco, drinking alcohol or using recreational drugs. MEDICATIONS: Refer to MAR REVIEW OF SYSTEMS: Constitutional: No malnutrition, weight loss, cachexia. Head: No traumatic brain or head injury. Skin: No edema, or rash. Ear: No infection. Eyes: No vision loss, or diplopia. Nose: No bleeding or purulent discharges. Hearing: No hearing decrease. Neck: No injury. Breast: No history of cancer, masses, or discharges. Cardiac: CAD, HTN, HLD Pulmonary: COPD. GI: No GI Ulcer, GI bleeding Urinary/genital: UTI. Endocrine: No cousin face, craniofacial dysmorphism. Skeletomuscular: No muscular atrophy. Neurological: see HP. Psychiatric: Denies drug use/abuse. Otherwise, not [id number] review of systems. PHYSICAL EXAMINATION: General appearance in no signs of life. HEENT: Normocephalic and nontraumatic. Eyes, nose, ears, and throat are unremarkable. Neck is supple. No lymphadenopathy. No Crepitus. Cardiovascular: No heart sounds appreciated. Pulmonary: Pulmonary arrest. Abdomen: Bowel sounds not appreciated. Extremities: No rash, lesions. NEUROLOGICAL EXAMINATION: No signs of life. No sedation since 7:00 am of 12/21/18. No pupillary response to bright light stimuli. No corneal reflex. Cough reflex not observed by nurse. No gag reflex per nurse. EOMI not elicited. CN: no focal findings. Muscle tone: floppy. Muscle strength: no movements to pain stimuli. DTR: 0 Plantar reflex: No response bilaterally Sensory exam: no response to pain stimuli. Objective Objective Vital Signs Date Time Temp Pulse Resp B/P (MAP) Pulse Ox O2 Delivery O2 Flow Rate FiO2 12/23/18 10:09 12 Room Air 12/23/18 08:40 100 12/23/18 08:00 97.3 78 165/65 (98) 97.3 Intake and Output 12/23/18 06:59 Intake Total 2595 ml Output Total 1985 ml Balance 610 ml IV Total 1832 ml Tube Feeding 663 ml Other 100 ml Output Urine Total 1985 ml Gastric Drainage Total 0 ml Vitals Signs Vitals VS - Last 72 Hours, by Label Date Time Temp Pulse Resp B/P (MAP) Pulse Ox O2 Delivery O2 Flow Rate FiO2 12/23/18 10:09 12 Room Air 12/23/18 09:37 16 12/23/18 08:40 100 Ventilator 12/23/18 08:00 97.3 78 19 165/65 (98) 100 Ventilator 97.3 12/23/18 08:00 Mechanical Ventilator 12/23/18 07:00 80 19 166/86 (112) 100 Ventilator 12/23/18 06:00 78 17 168/65 (99) 100 Ventilator 12/23/18 05:41 99 Ventilator 12/23/18 05:00 84 20 163/61 (95) 100 Ventilator 12/23/18 04:00 Mechanical Ventilator 12/23/18 04:00 98.6 85 22 161/58 (92) 100 Ventilator 98.6 12/23/18 03:00 83 24 170/62 (98) 100 Ventilator 12/23/18 02:58 99 Ventilator 12/23/18 02:00 80 23 166/66 (99) 100 Ventilator 12/23/18 01:22 100 Ventilator 12/23/18 01:00 81 24 162/58 (92) 100 Ventilator 12/23/18 00:00 99.3 77 22 164/66 (98) 100 Ventilator 99.3 12/23/18 00:00 Mechanical Ventilator 12/22/18 23:06 100 Ventilator 12/22/18 23:00 88 28 170/60 (96) 100 Ventilator 12/22/18 22:00 89 17 161/65 (97) 100 Ventilator 12/22/18 21:09 98 163/61 12/22/18 21:00 95 21 163/61 (95) 100 Ventilator 12/22/18 20:00 99.5 94 16 163/56 (91) 100 Ventilator 99.5 12/22/18 19:50 100 Ventilator 12/22/18 19:45 Mechanical Ventilator 12/22/18 19:00 92 21 168/64 (98) 100 Ventilator 12/22/18 18:00 90 17 163/56 (91) 100 Ventilator 12/22/18 17:47 100 Ventilator 12/22/18 17:00 93 21 161/56 (91) 95 Ventilator 12/22/18 16:00 Mechanical Ventilator 12/22/18 16:00 99.5 88 17 156/58 (90) 100 Ventilator 99.5 12/22/18 15:47 100 Ventilator 12/22/18 15:00 86 16 158/56 (90) 100 Ventilator 12/22/18 14:00 85 16 149/63 (91) 100 Ventilator 12/22/18 14:00 100 Ventilator 12/22/18 13:00 110 16 140/55 (83) 100 Ventilator 12/22/18 12:00 Mechanical Ventilator 12/22/18 12:00 99.3 86 16 151/59 (89) 100 Ventilator 99.3 12/22/18 11:51 100 Ventilator 12/22/18 11:00 88 16 152/59 (90) 100 Ventilator 12/22/18 10:00 94 25 153/62 (92) 100 Ventilator 12/22/18 09:37 100 Ventilator 12/22/18 09:00 100 25 148/55 (86) 100 Ventilator 12/22/18 08:35 102 158/59 12/22/18 08:00 99.7 94 25 148/53 (84) 100 Ventilator 99.7 12/22/18 08:00 Mechanical Ventilator 12/22/18 07:47 100 Ventilator 12/22/18 07:00 86 25 135/47 (76) 100 Ventilator Laboratory Laboratory Laboratory Tests Test 12/23/18 04:20 12/23/18 08:35 White Blood Count 18.0 x10^3/uL (4.0-11.0) Red Blood Count 3.16 x10^6/uL (3.50-5.40) Hemoglobin 8.0 g/dL (12.0-15.5) Hematocrit 24.7 % (36.0-47.0) Mean Corpuscular Volume 78 fL (79-100) Mean Corpuscular Hemoglobin 25 pg (25-35) Mean Corpuscular Hemoglobin Concent 33 g/dL (31-37) Red Cell Distribution Width 16.5 % (11.5-14.5) Platelet Count 210 x10^3/uL (140-400) Sodium Level 140 mmol/L (136-145) Potassium Level 4.2 mmol/L (3.5-5.1) Chloride Level 107 mmol/L (98-107) Carbon Dioxide Level 21 mmol/L (21-32) Anion Gap 12 (6-14) Blood Urea Nitrogen 51 mg/dL (7-20) Creatinine 2.1 mg/dL (0.6-1.0) Estimated GFR (Cockcroft-Gault) 27.8 BUN/Creatinine Ratio 24 (6-20) Glucose Level 370 mg/dL (70-99) Calcium Level 8.0 mg/dL (8.5-10.1) Total Bilirubin 0.3 mg/dL (0.2-1.0) Aspartate Amino Transf (AST/SGOT) 84 U/L (15-37) Alanine Aminotransferase (ALT/SGPT) 36 U/L (14-59) Alkaline Phosphatase 78 U/L (46-116) Total Protein 5.8 g/dL (6.4-8.2) Albumin 2.5 g/dL (3.4-5.0) Albumin/Globulin Ratio 0.8 (1.0-1.7) O2 Saturation 99 % (92-99) Arterial Blood pH 7.37 (7.35-7.45) Arterial Blood pCO2 at Patient Temp 34 mmHg (35-46) Arterial Blood pO2 at Patient Temp 189 mmHg (65-108) Arterial Blood HCO3 19 mmol/L (21-28) Arterial Blood Base Excess -6 mmol/L (-3-3) FiO2 40 Microbiology 12/19/18 Blood Culture - Preliminary, Resulted NO GROWTH AFTER 3 DAYS Medication Medications Current Medications Lorazepam (Ativan Inj) 2 mg PRN Q1HR PRN IV ANXIETY / AGITATION Last administered on 12/23/18at 09:37; Start 12/23/18 at 09:30 Morphine Sulfate (Morphine Sulfate) 2 mg PRN Q1HR PRN IV PAIN; Start 12/23/18 at 09:30 Morphine Sulfate (Morphine Sulfate) 4 mg PRN Q4HRS PRN IV PAIN Last adminis tered on 12/23/18at 09:37; Start 12/23/18 at 09:30 Scopolamine (Transderm-Scop) 1 patch Q3DAYS TD Last administered on 12/23/18at 10 :07; Start 12/23/18 at 10:00 Sodium Chloride 1,000 ml @ 150 mls/hr Q6H40M IV Last administered on 12/23/18at 07:53; Start 12/22/18 at 12:15; Stop 12/23/18 at 10:35; Status DC Comment Review of Relevant I have reviewed the following items glo (where applicable) has been applied. GLEN AIKEN MD Dec 23, 2018 12:07
--- NOTE | 2018-12-23 14:18 | PN ---
DATE: 12/23/2018 SUBJECTIVE: The patient continued to be on mechanical ventilation, intubated, off sedation. Apparently, he has had an EEG done, although, I could not find the actual report. She continued to be unresponsive despite being off the sedation. PHYSICAL EXAMINATION: GENERAL: When I examined her, she looked pale, no jaundice, cyanosis, or thyromegaly. No jugular venous distension. No limb edema. VITAL SIGNS: Her heart rate was 78, blood pressure was 165/65, temperature was 97.3, respiratory rate was 19 and oxygen saturation was 100% on FiO2 of 40%. HEAD, EYES, EARS, NOSE AND THROAT: Normocephalic, atraumatic. NECK: Supple. HEART: Showed normal first and second heart sounds. No gallop, rub or murmur. CHEST: Clear to auscultation. No crepitation or rhonchi. ABDOMEN: Distended, soft, nontender. No guarding or rigidity. No organomegaly. Hernial orifice is intact. Bowel sounds normal. NEUROLOGIC: She does not open her eyes spontaneously nor does she respond to verbal or painful stimuli. The Amadeo coma scale of 3. Her intake was 2500, output was 1900. LABORATORY DATA: As of this morning, serum sodium 140, potassium 4.2, chloride 107, bicarbonate 21, anion gap 12, BUN 51, and creatinine 2.1. Her white cell count is slightly down to 18,000, hemoglobin 8, hematocrit 25, MCV 78 and platelet count of 210,000. ASSESSMENT: 1. Out of hospital cardiac arrest with resultant acute respiratory failure, currently intubated and mechanically ventilated. She is off sedation. 2. The patient continued to be unresponsive. She does not open her eyes spontaneously nor does she respond to painful or verbal stimuli. 3. Coronary artery disease with history of ischemic cardiomyopathy with ejection fraction approximately 40%. 4. Recent percutaneous transluminal coronary angioplasty and stent deployment. 5. Hypertension. 6. Chronic systolic and diastolic congestive heart failure. 7. Type 2 diabetes. 8. Acute on chronic kidney injury. The patient is off hypothermia. She is off sedation. Continued to have Amadeo coma scale of 3. Has had an EEG done; although, the report itself is not available. Apparently the patient has made it clear she does not want to be on any life support. Does not to be around if she is in a vegetative state. Await the discussion with the neurologist. DI HANNAH MD DR: ZEUS/ariel JOB#: [id number] / [id number]
--- NOTE | 2018-12-23 16:40 | EEG ---
DATE OF SERVICE: 12/22/2018 EEG NUMBER: [id number]. OBJECTIVE: This is a 73-year-old female patient who is in status of post-cardiopulmonary arrest. EEG was requested to evaluate cerebral activity and help rule out subclinical seizure. METHODS: Twenty electrodes were applied according to the international 10-20 electrode placement system. EKG monitoring, hyperventilation, intermittent photic stimulation, monopolar and bipolar montages are routinely utilized. The record was obtained on a digital system with video monitoring. MEDICATIONS: Keppra. FINDINGS: 1. Background: The patient was recorded in the comatose state. No physiological awake, drowsy, and sleep states were recorded. The overall background amplitude is below 2 mv. No posterior dominant rhythm is observed. The overall background is with significant artifact. No active cerebral activity above 2 microvolts is seen. 2. Abnormalities: No specific epileptiform discharge or electrographic seizure is seen. No active cerebral activity is seen. 3. Activation: Hyperventilation was not performed because the patient was in comatose state. Intermittent photic stimulation was performed without photic driving. IMPRESSION: This EEG is an abnormal study for the comatose state only. No physiological awake, drowsy, and sleep states were recorded. No posterior dominant rhythm is observed. The overall background rhythm is with diffuse artifact. No active cerebral activity is seen. No focal, lateralizing, specific epileptiform discharge or electrographic seizure is seen. This pattern of EEG suggests no active cerebral activity at the time of EEG recording. GLEN AIKEN MD DR: Aneta JOB#: [id number] / [id number] MADDIE
== END 2018-12-23 12:30 | disposition expired | DRG 208 ==
LOC: 1 WEST ICU 17:40
PROVIDERS: ADMIT Internal Medicine; ATTEND Internal Medicine
PROC: 5A1945Z Respiratory Ventilation, 24-96 Consecutive Hours (ICD-10-PCS; principal; 2018-12-19)
PROC: 5A12012 Performance of Cardiac Output, Single, Manual (ICD-10-PCS; 2018-12-19)
DX: J96.01 Acute respiratory failure with hypoxia (principal); G93.41 Metabolic encephalopathy; I21.4 Non-ST elevation (NSTEMI) myocardial infarction; N17.9 Acute kidney failure, unspecified; E87.2 Acidosis; G93.1 Anoxic brain damage, not elsewhere classified; I13.0 Hypertensive heart and chronic kidney disease with heart failure and stage 1 through stage 4 chronic kidney disease, or unspecified chronic kidney disease; I50.42 Chronic combined systolic (congestive) and diastolic (congestive) heart failure; I46.9 Cardiac arrest, cause unspecified; E11.22 Type 2 diabetes mellitus with diabetic chronic kidney disease; N18.9 Chronic kidney disease, unspecified; D72.829 Elevated white blood cell count, unspecified; E78.5 Hyperlipidemia, unspecified; E87.6 Hypokalemia; G25.3 Myoclonus; I25.10 Atherosclerotic heart disease of native coronary artery without angina pectoris; I25.5 Ischemic cardiomyopathy; F32.9 Major depressive disorder, single episode, unspecified; F41.9 Anxiety disorder, unspecified; M19.90 Unspecified osteoarthritis, unspecified site; J44.9 Chronic obstructive pulmonary disease, unspecified; M79.7 Fibromyalgia; I25.2 Old myocardial infarction; Z79.899 Other long term (current) drug therapy; Z82.49 Family history of ischemic heart disease and other diseases of the circulatory system; Z86.73 Personal history of transient ischemic attack (TIA), and cerebral infarction without residual deficits; Z88.0 Allergy status to penicillin; Z87.891 Personal history of nicotine dependence; Z88.2 Allergy status to sulfonamides; Z90.710 Acquired absence of both cervix and uterus; Z91.19 Patient's noncompliance with other medical treatment and regimen; Z95.5 Presence of coronary angioplasty implant and graft
CPT/HCPCS: 36415; 36600; 71045; 74018; 76770; 80048; 80053; 80307; 81001; 82310; 82805; 82962; 83605; 83735; 84100; 84145; 84443; 84478; 84484; 85007; 85025; 85027; 85520; 85610; 85730; 87040; 87641; 93005; 93970; 94003; 94640; 95816; C9113; J0171; J1953; J1956; J2020; J2060; J2185; J2270; J2704; J2930; J3010; J3490; J7030; J7040; J7050; J7620; J7626